=== PATIENT | female | born 1960 | race Caucasian/White ===

== ENCOUNTER 2016-11-25 16:53 | Observation (INO) ==
--- NOTE | 2016-11-25 16:57 | Emergency Department Note ---
Disposition Clinical Impression: CVA (cerebral vascular accident), Leukocytosis Disposition: Admitted As Inpatient Condition: Good General Adult HPI - General Stated complaint: stroke symptoms Time Seen by Provider: 11/25/16 16:56 - Related Data Home Medications Medication Instructions Recorded Confirmed Albuterol Neb [AccuNeb] 1.25 mg IH Q8H PRN 11/25/16 11/25/16 Ammonium Lactate [Emily-Hydrolac] 1 appl TP BID 11/25/16 11/25/16 Bupropion HCl [Wellbutrin Xl] 300 mg PO DAILY 11/25/16 11/25/16 Carvedilol [Coreg] 6.25 mg PO BID 11/25/16 11/25/16 Diltiazem CD (24hr) [Cardizem CD] 240 mg PO DAILY 11/25/16 11/25/16 Famotidine [Pepcid] 40 mg PO DAILY 11/25/16 11/25/16 Fluticasone Propionate Nasal 50 mcg NS BID 11/25/16 11/25/16 [Flonase] Furosemide [Lasix] 20 mg PO DAILY 11/25/16 11/25/16 Gabapentin [Neurontin] 900 mg PO TID 11/25/16 11/25/16 Lansoprazole [Prevacid] 30 mg PO DAILY 11/25/16 11/25/16 Levothyroxine [Synthroid] 175 mcg PO QAM 11/25/16 11/25/16 Linaclotide [Linzess] 145 mcg PO DAILY 11/25/16 11/25/16 MetroNIDAZOLE [Metrocream] 1 appl TP BID 11/25/16 11/25/16 Mometasone/Formoterol [Dulera 200 2 puff IH BID 11/25/16 11/25/16 Mcg/5 Mcg Inhaler] Nortriptyline [Pamelor] 10 mg PO HS 11/25/16 11/25/16 Prochlorperazine Maleate 10 mg PO Q8HR 11/25/16 11/25/16 [Compazine] Promethazine Syrup [Phenergan 12.5 mg PO Q6H 11/25/16 11/25/16 Syrup] Tiotropium [Spiriva] 18 mcg IH 0700 11/25/16 11/25/16 Topiramate [Topamax] 25 - 50 mg PO HS 11/25/16 11/25/16 Allergies Allergy/AdvReac Type Severity Reaction Status Date / Time No Known Allergies Allergy Verified 11/25/16 16:55 Past Medical History - Past Medical History Medical history: Reports: arthritis, asthma, cancer, COPD, CVA, GERD, hypertension Surgical history: Reports: breast surgery, cancer surgery, hysterectomy, thyroidectomy Psychiatric history: Reports: no psych history - Social History Smoking Status: Never smoker Alcohol use: Reports: none Drug use: Reports: none Course Vital Signs Temperature 98.0 F 11/25/16 16:56 Pulse Rate 101 11/25/16 16:56 Respiratory Rate 18 11/25/16 16:56 Blood Pressure 125/82 11/25/16 16:56 O2 Sat by Pulse Oximetry 98 11/25/16 16:56 Temperature 97.9 F 11/26/16 07:19 Pulse Rate 97 11/26/16 07:19 Respiratory Rate 16 11/26/16 08:14 Blood Pressure 123/70 11/26/16 07:19 O2 Sat by Pulse Oximetry 94 11/26/16 08:14 Oxygen Delivery Oxygen Delivery Room Air Medical Decision Making - Lab Data Result diagrams: 11/26/16 03:45 11/26/16 03:45 Lab Results 11/25/16 11/25/16 11/25/16 Range/Units 16:59 16:59 16:59 WBC 19.8 H (4.3-11.1) K/mcL RBC 4.50 (3.82-4.97) M/mcL Hgb 13.2 (11.5-15.4) g/dL Hct 39.6 (35.3-44.9) % MCV 88.0 (83.0-100.0) fL MCH 29.3 (28.0-33.3) pg MCHC 33.3 (31.6-35.5) g/dL RDW 12.8 (11.5-14.5) % Plt Count 465 H (140-400) K/mcL MPV 9.5 (9.4-12.4) fL Immature Gran % 0.7 (0-4) % Seg Neutrophils % 80.6 % Lymphocytes % 12.4 % Monocytes % 5.5 % Eosinophils % 0.4 % Basophils % 0.4 % Neutrophils # 16.0 H (1.6-8.9) K/mcL Lymphocytes # 2.5 (0.6-4.6) K/mcL Monocytes # 1.1 (0.0-1.3) K/mcL Eosinophils # 0.1 (0.0-0.6) K/mcL Basophils # 0.1 (0.0-0.2) K/mcL PT 12.0 (9.4-12.1) Seconds INR 1.1 APTT 30.4 (26.0-36.0) Seconds Sodium 138 (136-145) mEq/L Potassium 4.3 (3.5-4.5) mEq/L Chloride 103 (98-109) mEq/L Carbon Dioxide 21 (19-29) mEq/L BUN 22 H (7-20) mg/dL Creatinine 1.11 (0.57-1.11) mg/dL Est GFR ( Amer) > 60 (> 60) Est GFR (Non-Af Amer) 50 L (> 60) BUN/Creatinine Ratio 20 (6-26) Glucose 105 H (70-99) mg/dL Calculated Osmolality 290 (280-300) Calcium 9.7 (8.6-10.8) mg/dL Troponin I (0-0.03) ng/mL Urine Color (Yellow) Urine Clarity (Clear) Urine pH (5.0-8.0) pH Units Ur Specific [place] (1.010-1.025) Urine Protein (Neg-Trace) mg/dL Urine Glucose (UA) (Normal) mg/dL Urine Ketones (Negative) mg/dL Urine Blood (Negative) Urine Nitrite (Negative) Urine Bilirubin (Negative) Urine Urobilinogen (Normal) mg/dL Ur Leukocyte Esterase (Negative) Urine Microscopic RBC (0-3) per hpf Urine Microscopic WBC (0-3) per hpf Ur Squamous Epith Cells (None-Few) per lpf Urine Bacteria (None-Few) per hpf Hyaline Casts (None-Few) per lpf Ur Culture Indicated? (NO) 11/25/16 11/25/16 Range/Units 16:59 18:02 WBC (4.3-11.1) K/mcL RBC (3.82-4.97) M/mcL Hgb (11.5-15.4) g/dL Hct (35.3-44.9) % MCV (83.0-100.0) fL MCH (28.0-33.3) pg MCHC (31.6-35.5) g/dL RDW (11.5-14.5) % Plt Count (140-400) K/mcL MPV (9.4-12.4) fL Immature Gran % (0-4) % Seg Neutrophils % % Lymphocytes % % Monocytes % % Eosinophils % % Basophils % % Neutrophils # (1.6-8.9) K/mcL Lymphocytes # (0.6-4.6) K/mcL Monocytes # (0.0-1.3) K/mcL Eosinophils # (0.0-0.6) K/mcL Basophils # (0.0-0.2) K/mcL PT (9.4-12.1) Seconds INR APTT (26.0-36.0) Seconds Sodium (136-145) mEq/L Potassium (3.5-4.5) mEq/L Chloride (98-109) mEq/L Carbon Dioxide (19-29) mEq/L BUN (7-20) mg/dL Creatinine (0.57-1.11) mg/dL Est GFR ( Amer) (> 60) Est GFR (Non-Af Amer) (> 60) BUN/Creatinine Ratio (6-26) Glucose (70-99) mg/dL Calculated Osmolality (280-300) Calcium (8.6-10.8) mg/dL Troponin I 0.00 (0-0.03) ng/mL Urine Color Dark Yellow (Yellow) Urine Clarity Cloudy A (Clear) Urine pH 6.0 (5.0-8.0) pH Units Ur Specific [place] 1.019 (1.010-1.025) Urine Protein Negative (Neg-Trace) mg/dL Urine Glucose (UA) Normal (Normal) mg/dL Urine Ketones Negative (Negative) mg/dL Urine Blood Negative (Negative) Urine Nitrite Negative (Negative) Urine Bilirubin Small H (Negative) Urine Urobilinogen Normal (Normal) mg/dL Ur Leukocyte Esterase Moderate H (Negative) Urine Microscopic RBC 0-3 (0-3) per hpf Urine Microscopic WBC 15-30 H (0-3) per hpf Ur Squamous Epith Cells Many H (None-Few) per lpf Urine Bacteria None Seen (None-Few) per hpf Hyaline Casts None Seen (None-Few) per lpf Ur Culture Indicated? YES A (NO) Attestation Statement - Attestation Attestation: I examined this patient and my medical decision-making was reviewed with the Resident Physician. I agree with the documented findings, disposition and treatment plan as described except to the extent set forth below. [id number] time provided Symptoms started 5 hours and 45 minutes prior to arrival. She states she developed intermittent dysarthria. Symptoms mostly resolved except for left lower extremity weakness and a shuffling gait. Stroke alert activated shortly after patient's arrival to the treatment area 17:57: Telemedicine stroke neurologist contacted. Case discussed by the resident physician. Patient not a TPA candidate. Her NIH is 0. She will be admitted for medical management
--- NOTE | 2016-11-25 16:59 | Emergency Department Note ---
Disposition Clinical Impression: CVA (cerebral vascular accident) Qualifiers: CVA mechanism: unspecified Qualified Code(s): I63.9 - Cerebral infarction, unspecified Leukocytosis Qualifiers: Leukocytosis type: unspecified Qualified Code(s): D72.829 - Elevated white blood cell count, unspecified Disposition: Admitted As Inpatient Condition: Good Referrals: NONE,PCP [Non-Partnered Physician] - Neuro HPI - General Chief Complaint: ED Neuro Symptoms/Deficit Stated Complaint: stroke symptoms Time Seen by Provider: 11/25/16 16:56 Source: patient Mode of arrival: private vehicle Limitations: no limitations Nursing Notes Reviewed: Yes Vital Signs Reviewed: Yes - History of Present Illness HPI Narrative: 50-year-old female history of TIA, aneurysm followed by neurology, hypertension who presents to the ER with a chief complaint of slurred speech and left lower [place] weakness. Patient reports around 11 AM this morning she started "talking out of her head" as well as slurring her words. She states she has also felt weak in her left lower extremity. She states that she has an aneurysm that she follows with neurology for. She reports her prior TIAs symptoms with syncope. At the time of arrival here the slurred speech had resolved. She still feels subjective weakness in her left lower extremity. No other complaints. Onset of Symptoms Date: 11/25/16 Onset of Symptoms Time: 11:00 Symptom Onset Unknown: No Timing confirmed by: family member Location: speech, left leg History of same: No Severity: moderate Quality: weakness Symptoms Improving: Yes Improves with: time Worsens with: none Context: sudden onset On Anticoagulants: No Associated symptoms: Reports: confusion. Denies: chest pain, headaches, nausea/ vomiting Treatments Prior to Arrival: none - Related Data Allergies/Adverse Reactions: Allergies Allergy/AdvReac Type Severity Reaction Status Date / Time No Known Allergies Allergy Verified 11/25/16 16:55 All systems ED: reviewed and negative except as stated. Cardiovascular: Denies: chest pain Respiratory: Denies: dyspnea Gastrointestinal: Denies: abdominal pain, nausea, vomiting Neurological: Reports: weakness. Denies: headache, numbness, paresthesias Past Medical History - Past Medical History Attestation: Yes The following information was validated with the patient. Source: patient Medical history: Reports: arthritis, asthma, cancer, COPD, CVA, GERD, hypertension Surgical history: Reports: breast surgery, cancer surgery, hysterectomy, thyroidectomy Psychiatric history: Reports: no psych history - Social History Smoking Status: Never smoker Alcohol use: Reports: none Drug use: Reports: none Physical Exam - General Limitations: no limitations General appearance: alert, in no apparent distress - Head Head exam: atraumatic, normocephalic, normal inspection - Eye Eye exam: Present: normal appearance, EOMI - ENT ENT exam: normal exam - Neck Neck exam: Present: normal inspection, full ROM - Chest Chest inspection: Present: normal inspection, symmetric chest wall rise - Respiratory Respiratory exam: Present: normal lung sounds bilaterally - Cardiovascular Cardiovascular exam: Present: regular rate, normal rhythm, normal heart sounds - Abdominal Exam Abdominal exam: Present: soft, Non-Tender. Absent: tenderness - Extremities Exam Extremities exam: Present: normal inspection, full ROM - Expanded Upper Extremity Exam Shoulder exam: Present: normal inspection, full ROM Arm exam: Present: normal inspection, full ROM Elbow exam: Present: normal inspection, full ROM Forearm/Wrist exam: Present: normal inspection, full ROM Hand exam: Present: normal inspection, full ROM - Expanded Lower Extremity Exam Hip/Pelvis exam: Present: normal inspection, full ROM Upper leg exam: Present: normal inspection, full ROM Knee exam: Present: normal inspection, full ROM Lower leg exam: Present: normal inspection, full ROM Ankle exam: Present: normal inspection, full ROM Foot/toe exam: Present: normal inspection, full ROM Neurovascular/Tendon exam: Absent: motor deficit, sensory deficit - Neurological Exam Neurological exam: Present: alert, oriented X3, CN II-XII intact. Absent: motor sensory deficit - Expanded Neurological Exam Patient oriented to: Present: person, place, time Speech: Present: fluid speech Cranial nerves: EOM function (II, III, IV, ): Normal, facial sensation (V): Normal, spinal accessory function (XI): Normal, tongue deviation (XII): Normal Cerebellar function: finger to nose: Normal Motor strength - LUE: 5/5 Motor strength - RUE: 5/5 Motor strength - LLE: 5/5 Motor strength - RLE: 5/5 Sensory exam upper extremity: light touch: Normal Sensory exam lower extremity: light touch: Normal Coma Scale Eye Opening: Spontaneous Coma Scale Motor Response: Obeys Commands Coma Scale Verbal Response: Oriented Coma Scale Total: 15 - Psychiatric Psychiatric exam: Present: normal affect, normal mood - Skin Skin exam: Present: warm, dry, intact, normal color Course Course Narrative: Patient seen and examined the time of arrival. Stroke alert was called 5 hours and 45 minutes after her symptom onset. We will obtain a CT scan of the head as well as basic labs. We will also be in consultation with [facility] for further evaluation. - Reevaluation(s) Reevaluation #1: I discussed results of imaging as well as the stroke neurologist recommendations with the patient and family. They are in agreement with being admitted to the hospital. - Consultations Consultation #1: This case was discussed with the stroke neurologist at [facility]. I discussed the patient's history, exam findings, imaging and lab work to date. They report that the patient is outside the window for TPA or for acute intervention. They do recommend with admitting to the hospital for a neuro workup. Vital Signs Temperature 98.0 F 11/25/16 16:56 Pulse Rate 101 11/25/16 16:56 Respiratory Rate 18 11/25/16 16:56 Blood Pressure 125/82 11/25/16 16:56 O2 Sat by Pulse Oximetry 98 11/25/16 16:56 Temperature 98.0 F 11/25/16 16:56 Pulse Rate 101 11/25/16 17:49 Respiratory Rate 17 11/25/16 17:49 Blood Pressure 129/81 11/25/16 17:49 O2 Sat by Pulse Oximetry 95 11/25/16 17:49 Oxygen Delivery Oxygen Delivery Room Air Neuro Symptoms/Deficit - MDM Narrative Medical decision making narrative: 56-year-old female presents to the ER due to left fluxion many weakness, slurring words and altered mental status. Residual symptoms include left lower [address] is negative. This case was discussed with [facility] stroke neurology who recommended admission for neurologic workup. Patient stable for admission and accepted to the hospitalist service. - Lab Data Lab results reviewed: Yes I reviewed the patient's lab results. Result diagrams: 11/25/16 16:59 11/25/16 16:59 Lab Results 11/25/16 11/25/16 11/25/16 Range/Units 16:59 16:59 16:59 WBC 19.8 H (4.3-11.1) K/mcL RBC 4.50 (3.82-4.97) M/mcL Hgb 13.2 (11.5-15.4) g/dL Hct 39.6 (35.3-44.9) % MCV 88.0 (83.0-100.0) fL MCH 29.3 (28.0-33.3) pg MCHC 33.3 (31.6-35.5) g/dL RDW 12.8 (11.5-14.5) % Plt Count 465 H (140-400) K/mcL MPV 9.5 (9.4-12.4) fL Immature Gran % 0.7 (0-4) % Seg Neutrophils % 80.6 % Lymphocytes % 12.4 % Monocytes % 5.5 % Eosinophils % 0.4 % Basophils % 0.4 % Neutrophils # 16.0 H (1.6-8.9) K/mcL Lymphocytes # 2.5 (0.6-4.6) K/mcL Monocytes # 1.1 (0.0-1.3) K/mcL Eosinophils # 0.1 (0.0-0.6) K/mcL Basophils # 0.1 (0.0-0.2) K/mcL PT 12.0 (9.4-12.1) Seconds INR 1.1 APTT 30.4 (26.0-36.0) Seconds Sodium 138 (136-145) mEq/L Potassium 4.3 (3.5-4.5) mEq/L Chloride 103 (98-109) mEq/L Carbon Dioxide 21 (19-29) mEq/L BUN 22 H (7-20) mg/dL Creatinine 1.11 (0.57-1.11) mg/dL Est GFR ( Amer) > 60 (> 60) Est GFR (Non-Af Amer) 50 L (> 60) BUN/Creatinine Ratio 20 (6-26) Glucose 105 H (70-99) mg/dL Calculated Osmolality 290 (280-300) Calcium 9.7 (8.6-10.8) mg/dL Troponin I (0-0.03) ng/mL 11/25/16 Range/Units 16:59 WBC (4.3-11.1) K/mcL RBC (3.82-4.97) M/mcL Hgb (11.5-15.4) g/dL Hct (35.3-44.9) % MCV (83.0-100.0) fL MCH (28.0-33.3) pg MCHC (31.6-35.5) g/dL RDW (11.5-14.5) % Plt Count (140-400) K/mcL MPV (9.4-12.4) fL Immature Gran % (0-4) % Seg Neutrophils % % Lymphocytes % % Monocytes % % Eosinophils % % Basophils % % Neutrophils # (1.6-8.9) K/mcL Lymphocytes # (0.6-4.6) K/mcL Monocytes # (0.0-1.3) K/mcL Eosinophils # (0.0-0.6) K/mcL Basophils # (0.0-0.2) K/mcL PT (9.4-12.1) Seconds INR APTT (26.0-36.0) Seconds Sodium (136-145) mEq/L Potassium (3.5-4.5) mEq/L Chloride (98-109) mEq/L Carbon Dioxide (19-29) mEq/L BUN (7-20) mg/dL Creatinine (0.57-1.11) mg/dL Est GFR ( Amer) (> 60) Est GFR (Non-Af Amer) (> 60) BUN/Creatinine Ratio (6-26) Glucose (70-99) mg/dL Calculated Osmolality (280-300) Calcium (8.6-10.8) mg/dL Troponin I 0.00 (0-0.03) ng/mL - Radiology Data Radiology results reviewed: Yes I reviewed the patient's radiology results. Head CT 11/25/16 00:00 IMPRESSION: Mild small vessel ischemic changes bilaterally Otherwise, no acute abnormality. D/ / Bogdan Altamirano / Bogdan Altamirano Interpreting Provider: Bogdan Altamirano - EKG Data EKG attestation: Yes I reviewed and interpreted this EKG. EKG results narrative: EKG demonstrates sinus tachycardia with rate of 103. Normal axis. Normal intervals. T-wave flattening in the lateral leads. No ST elevations or depressions. No acute ischemic findings. Changes from previous EKG on 08/27/[address]-T wave changes in lateral leads. NIH Stroke Scale - Level of Consciousness LOC: Alert - LOC Questions LOC Questions: Answers both correctly - LOC Commands LOC Commands: Performs both correctly - Best Gaze Best Gaze: Normal - Visual Visual: No visual loss - Facial Palsy Facial Palsy: Normal - Motor Arms Motor Arm-Left: No drift for 10 seconds Motor Arm-Right: No drift for 10 seconds - Motor Legs Motor Leg-Left: No drift for 5 seconds Motor Leg-Right: No drift for 5 seconds - Limb Ataxia Limb Ataxia: Absent of affected limb too weak to perform exam - Sensory Sensory: Normal - Best Language Best Language: No aphasia - Dysarthria Dysarthria: Normal - Extinction and Inattention Extinction and Inattention: Normal - NIHSS Total Score NIHSS Total Score: 0 TPA Checklist - LKW: 3-4.5 hrs Add. Warnings/Precautions Patient/family understanding: The patient/family members have been counseled and understood the risk, benefit , and alternatives of treatment. S.B.A.R. - [email or web address] Situation: Demographics, MOA Background: Presenting Complaint, Relevant PMH, Meds, & Allergies Assessment: Vital Signs, Course and respsone to treatment, Exam Concerns, Patient/Family Expectation, Pertinant Lab Results, Outstanding Labs Recommendation: Barrier(s) to disposition, Recommendation based on pending studies, treatments, or consults S.B.A.REl Report Given to: Danielle ChurchillADeclan Repor Time: 18:13 (Requests blood cultures and lactate)
[2016-11-25 17:36] LABS: Basophils # 0.1 K/mcL (0.0-0.2); Basophils % 0.4 %; Eosinophils # 0.1 K/mcL (0.0-0.6); Eosinophils % 0.4 %; Hematocrit 39.6 % (35.3-44.9); Hemoglobin 13.2 g/dL (11.5-15.4); Immature Granulocytes % 0.7 % (0-4); Lymphocytes # 2.5 K/mcL (0.6-4.6); Lymphocytes % 12.4 %; Mean Corpuscular HGB Conc 33.3 g/dL (31.6-35.5); Mean Corpuscular Hemoglobin 29.3 pg (28.0-33.3); Mean Platelet Volume 9.5 fL (9.4-12.4); Monocytes # 1.1 K/mcL (0.0-1.3); Monocytes % 5.5 %; Platelet Count 465 K/mcL (140-400); Red Cell Distribution Width 12.8 % (11.5-14.5); Segmented Neutrophils % 80.6 %
[2016-11-25 17:45] LABS: INR 1.1
[2016-11-25 17:47] LABS: Activated Partial Thrombo Time 30.4 Seconds (26.0-36.0)
[2016-11-25 17:48] LABS: BUN/Creatinine Ratio 20 (6-26); Blood Urea Nitrogen 22 mg/dL (7-20); Calcium 9.7 mg/dL (8.6-10.8); Carbon Dioxide 21 mEq/L (19-29); Chloride 103 mEq/L (98-109); Glucose 105 mg/dL (70-99); Osmolality,Calculated 290 (280-300); Potassium 4.3 mEq/L (3.5-4.5); Sodium 138 mEq/L (136-145); eGFR For African Americans > 60 (> 60); eGFR For Non-African Americans 50 (> 60)
[2016-11-25] MEDS ORDERED: Aspirin 81 MG TAB.CHEW PO ONE (17:58)
[2016-11-25 18:18] LABS: Bilirubin,Urine Small (Negative); Blood,Urine Negative (Negative); Clarity,Urine Cloudy (Clear); Color,Urine Dark Yellow (Yellow); Glucose,Urine (UA) Normal (Normal); Ketones,Urine Negative (Negative); Leukocyte Esterase,Urine Moderate (Negative); Nitrite,Urine Negative (Negative); Protein,Urine Negative (Neg-Trace); Specific Gravity,Urine 1.019 (1.010-1.025); Urobilinogen,Urine Normal (Normal)
[2016-11-25 18:19] LABS: Bacteria,Urine None Seen per hpf (None-Few); Hyaline Casts,Urine None Seen per lpf (None-Few); RBC,Urine 0-3 per hpf (0-3); Squamous Epithelial Cell,Urine Many per lpf (None-Few); WBC,Urine 15-30 per hpf (0-3)
[2016-11-25] MEDS ORDERED: Naloxone 0.4 MG/ML INJ IVP PRN (19:46)
[2016-11-25] MEDS ORDERED: Albuterol 2.5 MG/3 ML NEBULIZER IH PRN (19:49)
--- NOTE | 2016-11-25 19:51 | Internal Med History&Physical ---
Date of Encounter: 11/25/16 Time of Encounter: 19:51 Assessment and Plan (1) Acute encephalopathy Current visit: Yes Status: Suspected Patient with prior TIA in 2010 presented with signs and symptoms of confusion, slurred speech, focal weakness, concerning for a stroke vs ?seizure episode with a prolonged post-ictal Non contrast CT Head -ve for bleed in the ER upon presentation NIHSS on admission performed by the ED physician was Last known baseline was on 11/24 prior to 5pm, was not a tPA candidate due to she being outside the window Pt started on a modified stroke protocol since she is outside the initial 24 hour window will check MRI brain/MRA head and neck w/o contrast for stroke and also evaluate the intracranial vessels respectively Check 2D Echo with saline to assess for PFO( unsure about investigation done at [place] in 2010) Neurocheck q4hr ASA 81mg and Lipitor 80mg qday, Neurology consult no need for permissive hypertension since she is post 24 hours will consider PT/OT Eval based on neuro deficits Admit to for further evaluation (2) Leukocytosis Current visit: Yes Status: Acute stress related vs post seizure, we will monitor Qualifiers: Leukocytosis type: unspecified Qualified Code(s): D72.829 - Elevated white blood cell count, unspecified (3) HTN (hypertension) Current visit: Yes Status: Chronic will continue home medications Qualifiers: Hypertension type: essential hypertension Qualified Code(s): I10 - Essential (primary) hypertension (4) Hypothyroidism Current visit: Yes Status: Chronic will continue home synthroid Qualifiers: Hypothyroidism type: acquired Qualified Code(s): E03.9 - Hypothyroidism, unspecified (5) Depression Current visit: Yes Status: Chronic will continue home medications Qualifiers: Depression Type: major depressive disorder Major depression recurrence: recurrent Active/Remission status: in partial remission Qualified Code(s): F33.41 - Major depressive disorder, recurrent, in partial remission (6) COPD (chronic obstructive pulmonary disease) Current visit: Yes Status: Chronic albuterol nebs PRN Qualifiers: COPD type: chronic bronchitis Chronic bronchitis type: simple Qualified Code(s): J41.0 - Simple chronic bronchitis Internal Medicine - H&P: HPI Chief complaint: confusion Admitted From: Emergency Dept Plans for Post Hospital Care: Home History of present illness: Ms. Fyr is a 56 year old female with a hx of HTN and prior TIA who was brought to the ER of [place] for confusion. She reports that last evening at round 5pm she started having slurred speech associated with confusion, she went to the bathroom and felt that the place was alien. She could not tell what the toilet bowl was and pooped on the floor, after she had fallen there. She also vomited. She reportedly lay there the whole night because she could not get up from the floor. She denies any preceding headache, lightheadedness, or seizure episode. She did not notice any tongue biting, tingling or numbness. She awoke this morning and was shuffling her feet and felt that her left leg was weak because she could not lift it off the floor when she walked. She was also leaning towards the right when she walked. She reports that later whilst she was having a conversation with her sister she was loosing her thought mid sentence and was also having word finding difficulty with a sense of "hazy or cloudy feeling". Her sister got her to come to the ER for further evaluation. In the ER her symptoms had resolved with the exception of word finding difficulty and cloudy sensorium. A non contrast head CT was unremarkable for a bleed or new finding, and the [facility] neurologist did not feel pt was a tPA candidate. 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 PAST SURGICAL HISTORY: Hysterectomy in 1977, Thyroid cancer removal in 1986, Back surgery, Mass on kidneys removed in 1999, Repeat thyroid tumor removed in November 2010 Tonsillectomy. SOCIAL HISTORY: She is disabled, former smoker of half a pack of cigarettes, quit in 2012. Admits to occasional alcohol use. Denies any drug use. FAMILY HISTORY: Mother , she had metastatic lung cancer. Father is also , he had cancer, type unknown he also had HTN. She has a family history of lung cancer, hypertension, heart disease and diabetes. Past Med Surg Social Fam HX - Past Medical History Medical history: arthritis, asthma, cancer, COPD, CVA, GERD, hypertension Psychiatric history: no psych history - Past Surgical History Surgical History: breast surgery, cancer surgery, hysterectomy, thyroidectomy - Social History Smoking Status: Never smoker Smokeless Tobacco Status: No Alcohol use: none Drug use: none - Family History Mother Living Status: Cause of : Cancer Father Living Status: Cause of : Cancer Hx Family Cancer: Yes Internal Medicine - H&P: Meds Albuterol Neb [AccuNeb] 1.25 mg IH Q8H PRN 11/25/16 [History] Ammonium Lactate [Emily-Hydrolac] 1 appl TP BID 11/25/16 [History] Bupropion HCl [Wellbutrin Xl] 300 mg PO DAILY 11/25/16 [History] Carvedilol [Coreg] 6.25 mg PO BID 11/25/16 [History] Diltiazem CD (24hr) [Cardizem CD] 240 mg PO DAILY 11/25/16 [History] Famotidine [Pepcid] 40 mg PO DAILY 11/25/16 [History] Fluticasone Propionate Nasal [Flonase] 50 mcg NS BID 11/25/16 [History] Furosemide [Lasix] 20 mg PO DAILY 11/25/16 [History] Gabapentin [Neurontin] 900 mg PO TID 11/25/16 [History] Lansoprazole [Prevacid] 30 mg PO DAILY 11/25/16 [History] Levothyroxine [Synthroid] 175 mcg PO QAM 11/25/16 [History] Linaclotide [Linzess] 145 mcg PO DAILY 11/25/16 [History] MetroNIDAZOLE [Metrocream] 1 appl TP BID 11/25/16 [History] Mometasone/Formoterol [Dulera 200 Mcg/5 Mcg Inhaler] 2 puff IH BID 11/25/16 [ History] Nortriptyline [Pamelor] 10 mg PO HS 11/25/16 [History] Prochlorperazine Maleate [Compazine] 10 mg PO Q8HR 11/25/16 [History] Promethazine Syrup [Phenergan Syrup] 12.5 mg PO Q6H 11/25/16 [History] Tiotropium [Spiriva] 18 mcg IH 0700 11/25/16 [History] Topiramate [Topamax] 25 - 50 mg PO HS 11/25/16 [History] No Known Allergies Allergy (Verified 11/25/16 16:55) All Systems PM: A 10-system review of systems was performed and is negative for pertinent findings except as documented above in the HPI. - Constitutional Vitals: Temp Pulse Resp BP Pulse Ox 98.1 F 102 16 100/65 95 11/25/16 19:40 11/25/16 19:40 11/25/16 19:40 11/25/16 19:40 11/25/16 19:40 GENERAL: Adult female, lying in bed, Alert, not in acute distress, HEENT: NC/AT, EOMI, PERRLA, anicteric sclera, normal conjunctiva, supple, clear nares, moist mucous membranes, RESP: Lungs are clear to auscultation bilaterally, good AE bilaterally, No crackles or wheeze CARDIO: Normal hearts sounds; S1 and 2, RRR with no murmurs, no JVD, no ankle edema GI: Soft, full, no tenderness, no organomegaly felt, normal bowel sounds heard MUSCULOSKELETAL: grossly normal movements bilaterally, no deformities noted, no calf tenderness NEUROLOGIC: CN 2-12 intact grossly. Motor is 4+/5 on the left lower extremity, 5 /5 in all other extremities/no sensory deficit appreciated, normal muscle tone PSYCHIATRY: AAO x 3. Mood is fair, SKIN: no skin rash or ulcers noted Internal Med - H&P Results - Labs CBC & Chem 7: 11/26/16 03:45 11/26/16 03:45 - EKG Data -: EKG Interpreted by Myself - Diagnostic Studies CT scan - head Status: image reviewed by me
[2016-11-25] MEDS: Gabapentin 300 MG CAPSULE PO SCH (22:26)
[2016-11-25] MEDS: Fluticasone Propionate Nasal 50 MCG/SPRAY BOTTLE NS SCH (22:36)
[2016-11-26 05:28] LABS: Basophils # 0.1 K/mcL (0.0-0.2); Basophils % 0.5 %; Eosinophils # 0.2 K/mcL (0.0-0.6); Eosinophils % 1.8 %; Hematocrit 35.8 % (35.3-44.9); Hemoglobin 11.9 g/dL (11.5-15.4); Immature Platelets 3.1 % (1.1-6.1); Lymphocytes # 3.4 K/mcL (0.6-4.6); Lymphocytes % 26.3 %; Mean Corpuscular HGB Conc 33.2 g/dL (31.6-35.5); Mean Corpuscular Hemoglobin 29.7 pg (28.0-33.3); Mean Corpuscular Volume 89.3 fL (83.0-100.0); Mean Platelet Volume 9.5 fL (9.4-12.4); Monocytes # 0.9 K/mcL (0.0-1.3); Monocytes % 6.8 %; Neutrophils # 8.3 K/mcL (1.6-8.9); Platelet Count 366 K/mcL (140-400); Red Blood Count 4.01 M/mcL (3.82-4.97); Red Cell Distribution Width 12.9 % (11.5-14.5); Segmented Neutrophils % 63.6 %
[2016-11-26 05:41] LABS: BUN/Creatinine Ratio 19 (6-26); Blood Urea Nitrogen 20 mg/dL (7-20); Calcium 9.1 mg/dL (8.6-10.8); Carbon Dioxide 24 mEq/L (19-29); Chloride 103 mEq/L (98-109); Chol/HDL Ratio 4.5 (0-4.9); Cholesterol 223 mg/dL (< 200); Glucose 123 mg/dL (70-99); HDL Cholesterol 50 mg/dL (40-59); LDL Cholesterol,Calculated 121 mg/dL (0-99); Magnesium 2.6 mg/dL (1.6-2.6); Osmolality,Calculated 288 (280-300); Phosphorous 3.9 mg/dL (2.3-4.7); Potassium 3.6 mEq/L (3.5-4.5); Sodium 137 mEq/L (136-145); Triglycerides 259 mg/dL (< 150); eGFR For African Americans > 60 (> 60); eGFR For Non-African Americans 54 (> 60)
[2016-11-26 05:48] LABS: Hemoglobin A1C 5.6 %
[2016-11-26] MEDS: Tiotropium 18 MCG inhalation IH SCH (08:11)
[2016-11-26] MEDS: BuPROPion XL (24 HR) 150 MG TABLET PO SCH (09:52)
[2016-11-26] MEDS: Gabapentin 300 MG CAPSULE PO SCH ×3 (09:52→21:46)
[2016-11-26] MEDS: Famotidine 20 MG TABLET PO SCH (09:52)
[2016-11-26] MEDS: Aspirin 81 MG TAB.CHEW PO SCH (09:52)
[2016-11-26] MEDS: Fluticasone Propionate Nasal 50 MCG/SPRAY BOTTLE NS SCH ×2 (09:53→21:47)
--- NOTE | 2016-11-26 15:24 | Electrocardiograph Report ---
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
--- NOTE | 2016-11-26 15:45 | Internal Med Progress Note ---
Date of Encounter: 11/26/16 Time of Encounter: 12:35 - Assessment and plan (1) Acute encephalopathy Current Visit: Yes Status: Suspected Assessment and plan: Patient reports one-week history of shuffling gait, weakness, slurred speech, at times inappropriate speech and conversation. Two nights ago she was up all night with nausea, vomiting and diarrhea, then the next day she slept most of the day. Patient reports that she still feels foggy, although she is improved. Head CT in the ER was negative for acute intracranial abnormality, there are mild small vessel ischemic changes bilaterally. Brain MRI negative for acute infarct. There are chronic ischemic changes present. Patient had MRA of the neck and head that showed no reliable evidence of acute intracranial arterial vascular abnormality, no evidence of acute infarct. Echocardiogram showed LVEF of 60-65% with normal systolic function, mild LVEDD, no significant valvular dysfunction, no evidence of intracardiac shunting. Patient does have leukocytosis that is improving since admission. Chest x-ray was negative, urine culture was just isolated. At this time acute encephalopathy is of unknown etiology. Most of her home medications have been held, we will continue to monitor. Neurology has been consulted, they have not seen patient today. We will continue to monitor patient condition, labs, and vital signs. (2) Leukocytosis Current Visit: Yes Status: Acute Assessment and plan: Improving. 13.0 today. Pt has no fever or tachycardia. Continue to monitor labs and vitals. Qualifiers: Leukocytosis type: unspecified Qualified Code(s): D72.829 - Elevated white blood cell count, unspecified (3) HTN (hypertension) Current Visit: Yes Status: Chronic Assessment and plan: Chronic. Continue home medications. Qualifiers: Hypertension type: essential hypertension Qualified Code(s): I10 - Essential (primary) hypertension (4) COPD (chronic obstructive pulmonary disease) Current Visit: Yes Status: Chronic Assessment and plan: No acute exacerbation. Continue home medications. Qualifiers: COPD type: chronic bronchitis Chronic bronchitis type: simple Qualified Code(s): J41.0 - Simple chronic bronchitis (5) DVT prophylaxis Current Visit: Yes Status: Acute Assessment and plan: Up ad milagros. SHANIQUA milton. - Time Spent With Patient less than 15 minutes - Subjective Interval history: Pt was seen and assessed at 1235 today. was at bs. Pt was alert, oriented x 3, speech clear, coherent. Pt reports 1 week history of shuffling gait, confusion and at times, slurred and inappropriate speech. Pt states that she would have to stop and think about why she was even talking. reports that 2 nights ago that she was up all night with n/v/d and that she slept most of the next day. Pt states that she is a pt of Dr. Payne and has been seen for multiple small aneurysms in her brain. She states that she still feels foggy, but improved. AT this time, neurology consult is still pending. - Constitutional Vitals: Temp Pulse Resp BP Pulse Ox 97.9 F 108 16 129/80 94 11/26/16 15:03 11/26/16 15:03 11/26/16 15:03 11/26/16 15:03 11/26/16 15:03 General appearance: Present: cooperative, A&O X 3, pleasant, no acute distress, answers questions appropriately - Head Head exam: Present: normal inspection - Eye Eye exam: Present: normal appearance, conjuntiva pink - ENT ENT exam: Present: mucous membranes moist, normal exam, normal external ear exam - Neck Neck exam general surgery: Present: normal inspection. Absent: lymphadenopathy , tenderness - Respiratory Respiratory exam: Present: decreased breath sounds, CTAB. Absent: rales, respiratory distress, rhonchi, stridor, wheezes - Cardiovascular Cardiovascular exam: Present: RRR, +S1, +S2. Absent: clicks, diastolic murmur, gallop, systolic murmur - GI/Abdominal GI/Abdominal exam: Present: normal bowel sounds, soft. Absent: hernia, hepatomegaly, tenderness - Extremities Exam Extremities exam: Present: full ROM, warm, radial pulses palpable and symmetrical. Absent: pedal edema, tenderness - Neurological Exam Neurological exam: Present: alert, oriented X3, no focal deficits, strengths equal and symetr throughout, speech deficit. Absent: pronater drift, facial droop - Skin Skin exam: Present: dry, intact, normal color, warm. Absent: rash, urticaria Internal Medicine: Result - Labs CBC & Chem 7: 11/26/16 03:45 11/26/16 03:45 Labs: Short CBC 11/26/16 Range/Units 03:45 WBC 13.0 H (4.3-11.1) K/mcL Hgb 11.9 (11.5-15.4) g/dL Hct 35.8 (35.3-44.9) % Plt Count 366 (140-400) K/mcL Neutrophils # 8.3 (1.6-8.9) K/mcL BMP 11/26/16 03:45 Sodium 137 Potassium 3.6 Chloride 103 Carbon Dioxide 24 BUN 20 Creatinine 1.04 Glucose 123 H Calcium 9.1 - ABG Interpretation ABG results: PT/INR, D-dimer PT 12.0 Seconds (9.4-12.1) 11/25/16 16:59 - Impressions Impressions Brain MRI 11/25/16 19:47 IMPRESSION: MRA brain sensitivity diminished by artifact obscuring portions of the intracranial internal carotid arteries and posterior cerebral arteries near the skullbase. No reliable evidence of acute intracranial arterial vascular abnormality. No evidence of acute infarct. Mild to moderate chronic microvascular ischemic changes of cerebral white matter. MRA neck without evidence of acute vascular abnormality. D/ / Daniel Conner / Daniel Conner Interpreting Provider: Daniel Conner Head MRA 11/25/16 19:47 IMPRESSION: MRA brain sensitivity diminished by artifact obscuring portions of the intracranial internal carotid arteries and posterior cerebral arteries near the skullbase. No reliable evidence of acute intracranial arterial vascular abnormality. No evidence of acute infarct. Mild to moderate chronic microvascular ischemic changes of cerebral white matter. MRA neck without evidence of acute vascular abnormality. D/ / Daniel Conner / Daniel Conner Interpreting Provider: Daniel Conner Neck MRA 11/25/16 19:47 IMPRESSION: MRA brain sensitivity diminished by artifact obscuring portions of the intracranial internal carotid arteries and posterior cerebral arteries near the skullbase. No reliable evidence of acute intracranial arterial vascular abnormality. No evidence of acute infarct. Mild to moderate chronic microvascular ischemic changes of cerebral white matter. MRA neck without evidence of acute vascular abnormality. D/ / Daniel Conner / Daniel Conner Interpreting Provider: Daniel Conner Consult Discharge Plan - Plan Referrals: Julio Hernandez MD [Primary Care Provider] - 12/03/16 1:15 pm
--- NOTE | 2016-11-26 17:10 | Neurology - Consult Note ---
Date of Encounter: 11/26/16 Time of Encounter: 17:05 Assessment and Plan (1) Acute encephalopathy Current Visit: Yes Status: Suspected I see no evidence in the existing workup, or neurologic examination to suspect a primary neurologic process here. My suspicion is that perhaps she might have been dehydrated secondary to an acute process perhaps UTI, or gastroenteritis. Her headaches have not really been intense enough to suspect an aneurysmal leak. The MRI scan of her brain recently completed was negative, however the MRA scan of the head and neck were inconclusive due to artifactual content. Echocardiogram was negative. No focal or lateralized findings are present on her neurologic exam. My plan is to obtain an EEG, will order a CTA of the head and neck to try to better delineate the status of the right upper ophthalmic artery aneurysm. History of Present Illness HPI: Ms. Fry is a 56 year old female who was seen for neurologic evaluation secondary to confusion feeling lightheaded. Apparently over the last week or so states that while at home her blood pressure has been somewhat labile. She normally runs in the 140s over 80s. However lately she has been around 110/70 and today apparently was 100/65. They state that she has not started on any new medications or stopped any. Apparently 2 nights ago she was up all night with symptoms of nausea vomiting and diarrhea. Later that day she began slurring her words and "shuffling her feet". She awakens Wednesday which was yesterday and was no better. She was also somewhat confused. They also give other vague symptoms for instance she has been dropping things. She does have a known history of cerebral aneurysm however been experiencing mild headaches but not very intense headaches. She was actually supposed to be seen by Dr. Campos in the office today but came to the hospital instead. She denies any visual changes. She admits that she has been somewhat stressed about her relationship with her daughter but does not feel that this is an explanation for troponins. Overall today she feels somewhat improved. Urinalysis does have some suggestion of a UTI. WBC count upon admission was elevated at 19.8. Just recently she has had an MRI scan of the brain was negative. However the MRA was inconclusive due to artifactual content. Echocardiogram was completed and is negative. She has not had an EEG. Past Med Surg Social Fam HX - Past Medical History Medical history: arthritis, asthma, cancer, COPD, CVA, GERD, hypertension Psychiatric history: no psych history - Past Surgical History Surgical History: breast surgery, cancer surgery, hysterectomy, thyroidectomy - Social History Smoking Status: Never smoker Smokeless Tobacco Status: No Alcohol use: none Drug use: none - Family History Mother Living Status: Cause of : Cancer Father Living Status: Cause of : Cancer Hx Family Cancer: Yes Medications and Allergies Albuterol Neb [AccuNeb] 1.25 mg IH Q8H PRN 11/25/16 [History] Ammonium Lactate [Emily-Hydrolac] 1 appl TP BID 11/25/16 [History] Bupropion HCl [Wellbutrin Xl] 300 mg PO DAILY 11/25/16 [History] Carvedilol [Coreg] 6.25 mg PO BID 11/25/16 [History] Diltiazem CD (24hr) [Cardizem CD] 240 mg PO DAILY 11/25/16 [History] Famotidine [Pepcid] 40 mg PO DAILY 11/25/16 [History] Fluticasone Propionate Nasal [Flonase] 50 mcg NS BID 11/25/16 [History] Furosemide [Lasix] 20 mg PO DAILY 11/25/16 [History] Gabapentin [Neurontin] 900 mg PO TID 11/25/16 [History] Lansoprazole [Prevacid] 30 mg PO DAILY 11/25/16 [History] Levothyroxine [Synthroid] 175 mcg PO QAM 11/25/16 [History] Linaclotide [Linzess] 145 mcg PO DAILY 11/25/16 [History] MetroNIDAZOLE [Metrocream] 1 appl TP BID 11/25/16 [History] Mometasone/Formoterol [Dulera 200 Mcg/5 Mcg Inhaler] 2 puff IH BID 11/25/16 [ History] Nortriptyline [Pamelor] 10 mg PO HS 11/25/16 [History] Prochlorperazine Maleate [Compazine] 10 mg PO Q8HR 11/25/16 [History] Promethazine Syrup [Phenergan Syrup] 12.5 mg PO Q6H 11/25/16 [History] Tiotropium [Spiriva] 18 mcg IH 0700 11/25/16 [History] Topiramate [Topamax] 25 - 50 mg PO HS 11/25/16 [History] 3 Allergy/AdvReac Type Severity Reaction Status Date / Time No Known Allergies Allergy Verified 11/25/16 16:55 All Systems: A 10-system review of systems was performed and is negative for pertinent findings except as documented above in the HPI. Review of Systems: 10 point review of systems is consistent with a history of present illness and otherwise negative. Physical Examination - Vital Signs Vital Signs: Initial Vital Signs Temp Pulse Resp BP Pulse Ox 98.0 F 101 18 125/82 98 11/25/16 16:56 11/25/16 16:56 11/25/16 16:56 11/25/16 16:56 11/25/16 16:56 - Neurologic Detailed motor examination: full strength in all major muscle groups Motor examination - right side: 5/5: deltoids, biceps, triceps, wrist flexion, wrist extension, drill operator pneumatic, hip flexors, tibialis Anterior, quadriceps, toe extension (EHL), plantarflexion Motor examination - left side: 5/5: deltoids, biceps, triceps, wrist flexion, wrist extension, hip flexors, drill operator pneumatic, quadriceps, tibialis Anterior, toe extension (EHL), plantarflexion Reflexes: Biceps: 1+ (Symmetrically), Triceps: 1+ ("), Brachioradialis: 1+ ("), Patella: 1+ ("), Achilles: 1+ (") Mental Status Examination: awake, alert, oriented to person, oriented to place, oriented to time, follows commands appropriately, answers questions appropriately, no agnosia, no aphasia, no aproxia Cranial nerve examination: PERRL, EOMI, visual beltran intact, corneal reflexes brisk symmetrically, sensory to face intact, mastication intact, no facial asymmetry is present, no dysarthria, hearing is intact symmetrically, soft palate elevates bilaterally upon phonation, gag reflex intact, flexes SCM and trapezius muscles symmetrically with full power, tongue protrudes midline, no atrophy or facial fasiculations present Cerebellar examination: no dysmetria, performs finger to nose and heel to cordova symmetrically without ataxia, no gait ataxia, no truncal ataxia, no difficulty with rapid alternating movements Results - Laboratory Findings CBC and BMP: 11/26/16 03:45 11/26/16 03:45 Abnormal lab findings: Abnormal lab results WBC 13.0 K/mcL (4.3-11.1) H 11/26/16 03:45 Est GFR (Non-Af Amer) 54 (> 60) L 11/26/16 03:45 Glucose 123 mg/dL (70-99) H 11/26/16 03:45 Triglycerides 259 mg/dL (< 150) H 11/26/16 03:45 Cholesterol 223 mg/dL (< 200) H 11/26/16 03:45 LDL Cholesterol, Calc 121 mg/dL (0-99) H 11/26/16 03:45 VLDL Cholesterol, Calc 52 mg/dL (< 31) H 11/26/16 03:45 Urine Clarity Cloudy (Clear) A 11/25/16 18:02 Urine Bilirubin Small (Negative) H 11/25/16 18:02 Ur Leukocyte Esterase Moderate (Negative) H 11/25/16 18:02 Urine Microscopic WBC 15-30 per hpf (0-3) H 11/25/16 18:02 Ur Squamous Epith Cells Many per lpf (None-Few) H 11/25/16 18:02 Ur Culture Indicated? YES (NO) A 11/25/16 18:02 Consult Discharge Plan - Plan Referrals: Julio Hernandez MD [Primary Care Provider] - 12/03/16 1:15 pm
[2016-11-26] MEDS: *HR* Heparin 5,000 UNIT/ML VIAL SQ SCH (21:47)
[2016-11-27 04:28] LABS: Basophils # 0.1 K/mcL (0.0-0.2); Basophils % 0.6 %; Eosinophils # 0.2 K/mcL (0.0-0.6); Eosinophils % 2.2 %; Hematocrit 34.6 % (35.3-44.9); Hemoglobin 11.3 g/dL (11.5-15.4); Immature Granulocytes % 1.1 % (0-4); Lymphocytes # 2.9 K/mcL (0.6-4.6); Lymphocytes % 35.1 %; Mean Corpuscular HGB Conc 32.7 g/dL (31.6-35.5); Mean Corpuscular Hemoglobin 29.4 pg (28.0-33.3); Mean Corpuscular Volume 90.1 fL (83.0-100.0); Mean Platelet Volume 9.4 fL (9.4-12.4); Monocytes # 0.8 K/mcL (0.0-1.3); Monocytes % 10.4 %; Neutrophils # 4.1 K/mcL (1.6-8.9); Platelet Count 316 K/mcL (140-400); Red Blood Count 3.84 M/mcL (3.82-4.97); Red Cell Distribution Width 12.8 % (11.5-14.5); Segmented Neutrophils % 50.6 %
[2016-11-27 04:38] LABS: BUN/Creatinine Ratio 19 (6-26); Blood Urea Nitrogen 15 mg/dL (7-20); Calcium 9.2 mg/dL (8.6-10.8); Carbon Dioxide 26 mEq/L (19-29); Chloride 106 mEq/L (98-109); Glucose 107 mg/dL (70-99); Osmolality,Calculated 295 (280-300); Potassium 3.7 mEq/L (3.5-4.5); Sodium 142 mEq/L (136-145); eGFR For African Americans > 60 (> 60); eGFR For Non-African Americans > 60 (> 60)
[2016-11-27] MEDS: *HR* Heparin 5,000 UNIT/ML VIAL SQ SCH ×2 (06:07→14:44)
[2016-11-27] MEDS: Famotidine 20 MG TABLET PO SCH (08:16)
[2016-11-27] MEDS: BuPROPion XL (24 HR) 150 MG TABLET PO SCH (08:16)
[2016-11-27] MEDS: Gabapentin 300 MG CAPSULE PO SCH ×2 (08:16→14:43)
[2016-11-27] MEDS: Fluticasone Propionate Nasal 50 MCG/SPRAY BOTTLE NS SCH (08:16)
[2016-11-27] MEDS: Aspirin 81 MG TAB.CHEW PO SCH (08:16)
[2016-11-27] MEDS: Tiotropium 18 MCG inhalation IH SCH (11:05)
[2016-11-27 15:35] VITALS: BP 161/91
--- NOTE | 2016-11-27 16:08 | EEG/EMG/Oth Biometrics Report ---
EEG Procedure Report Date of procedure: 11/27/16 EEG Procedure: Routine EEG Procedure Note: This is a report of a 21 channel bipolar and referential montage EEG. The posterior dominant rhythm of 8 Hz moderate to low voltage alpha frequencies identified symmetrically the posterior head regions. This rhythm attenuates symmetrically with eye opening. Hyperventilation is not performed during recording. Periods of drowsiness and stage II sleep were identified as reference by dropout of the posterior dominant rhythm, and emergence of vertex activity, K complexes, and sleep spindles. Photic stimulation is performed and produces a symmetric driving response. EKG lead demonstrated reveals sinus tachycardia at 108 beats per minute. Impressions: This EEG EEG recording is within normal limits. There is no evidence of epileptiform activity identified during the recording. Comment: A normal EEG does not preclude the diagnosis of seizure or epilepsy. If the clinical suspicion for seizure activity is high, serial EEGs or perhaps a prolonged recording may increase the yield. Sinus tachycardia at 108 beats per minute is also identified during the recording. Please correlate clinically.
--- NOTE | 2016-11-27 17:15 | Neurology Progress Note ---
Date of Encounter: 11/27/16 Time of Encounter: 17:13 Assessment and Plan (1) Acute encephalopathy Current Visit: Yes Status: Suspected At this juncture on him unable to identify specific cause for Norma's transient confusion. However she has resumed her normal baseline. Neurologic workup was completely negative. I am doubtful of seizure at this time. Also doubtful of a cerebral ischemic event. The aneurysm is not playing a role in this at all. You may discharge her at your discretion, I will follow up with her at your request. Subjective Principal diagnosis: Spell of Altered Consciousness Interval history: Norma Fry was seen for neurologic follow-up regarding spell of altered consciousness. Since admission she has been fairly stable. Her neurologic examination is normal. I did review her EEG which was normal, MRI scan of the brain is normal and she is also had normal MRA neck. 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 Echocardiogram was also normal. Objective - Constitutional Vitals: Temp Pulse Resp BP Pulse Ox 98.3 F 107 16 161/91 95 11/27/16 15:34 11/27/16 15:34 11/27/16 15:34 11/27/16 15:34 11/27/16 15:34 - Neurological Exam Motor Examination: Present: full strength in all major muscle groups Motor examination - right side: 5/5: deltoids, biceps, triceps, wrist flexion, wrist extension, canine service instructor trainer, hip flexors, tibialis Anterior, quadriceps, toe extension (EHL), plantarflexion Motor examination - left side: 5/5: deltoids, biceps, triceps, wrist flexion, wrist extension, hip flexors, canine service instructor trainer, quadriceps, tibialis Anterior, toe extension (EHL), plantarflexion Sensation intact: Present: intact Mental Status Examination: Present: awake, alert, oriented to person, oriented to place, oriented to time, follows commands appropriately, answers questions appropriately, no agnosia, no aphasia, no aproxia Cranial nerve examination: Present: PERRL, EOMI, visual beltran intact, corneal reflexes brisk symmetrically, sensory to face intact, mastication intact, no facial asymmetry is present, no dysarthria, hearing is intact symmetrically, soft palate elevates bilaterally upon phonation, gag reflex intact, flexes SCM and trapezius muscles symmetrically with full power, tongue protrudes midline, no atrophy or facial fasiculations present Cerebellar examination: Present: no dysmetria, performs finger to nose and heel to cordova symmetrically without ataxia, no gait ataxia, no truncal ataxia, no difficulty with rapid alternating movements Results - Laboratory Findings CBC and BMP: 11/27/16 03:20 11/27/16 03:20 Abnormal lab findings: Abnormal lab results Hgb 11.3 g/dL (11.5-15.4) L 11/27/16 03:20 Hct 34.6 % (35.3-44.9) L 11/27/16 03:20 Glucose 107 mg/dL (70-99) H 11/27/16 03:20 Triglycerides 259 mg/dL (< 150) H 11/26/16 03:45 Cholesterol 223 mg/dL (< 200) H 11/26/16 03:45 LDL Cholesterol, Calc 121 mg/dL (0-99) H 11/26/16 03:45 VLDL Cholesterol, Calc 52 mg/dL (< 31) H 11/26/16 03:45 Urine Clarity Cloudy (Clear) A 11/25/16 18:02 Urine Bilirubin Small (Negative) H 11/25/16 18:02 Ur Leukocyte Esterase Moderate (Negative) H 11/25/16 18:02 Urine Microscopic WBC 15-30 per hpf (0-3) H 11/25/16 18:02 Ur Squamous Epith Cells Many per lpf (None-Few) H 11/25/16 18:02 Ur Culture Indicated? YES (NO) A 11/25/16 18:02 Consult Discharge Plan - Plan Referrals: Julio Hernandez MD [Primary Care Provider] - 12/03/16 1:15 pm
--- NOTE | 2016-11-27 18:18 | Discharge Summary ---
Date of Encounter: 11/27/16 Time of Encounter: 08:35 - Discharge Diagnosis (1) Acute encephalopathy Priority: Primary Status: Resolved Comments: Pt has returned to baseline. She denies problems with speech, vision, memory, or weakness. Pt is back to baseline. Neurology has seen pt and signed off and do not believe this is a neurological issue. Cardiac nature has been ruled out, as well since pt denies chest pain, echo was normal, troponin was negative, and EKG showed Sinus tach with a rate of 103, UT interval 155, QRS 110, and QTc 404. Pt has not reported chest pain and has no cardiac history. (2) Leukocytosis Priority: Secondary Status: Resolved Comments: Resolved. WBC 8.1 today. Qualifiers: Leukocytosis type: unspecified Qualified Code(s): D72.829 - Elevated white blood cell count, unspecified (3) HTN (hypertension) Priority: Secondary Status: Chronic Comments: Well controlled in inpatient setting. Continue home medications. Qualifiers: Hypertension type: essential hypertension Qualified Code(s): I10 - Essential (primary) hypertension (4) COPD (chronic obstructive pulmonary disease) Priority: Secondary Status: Chronic Qualifiers: COPD type: chronic bronchitis Chronic bronchitis type: simple Qualified Code(s): J41.0 - Simple chronic bronchitis (5) DVT prophylaxis Priority: Secondary Status: Acute Comments: Heparin SQ daily. Pt is ambulatory. - Discharge Medications Home Medications: Albuterol Neb [AccuNeb] 1.25 mg IH Q8H PRN 11/25/16 [History] Ammonium Lactate [Emily-Hydrolac] 1 appl TP BID 11/25/16 [History] Bupropion HCl [Wellbutrin Xl] 300 mg PO DAILY 11/25/16 [History] Carvedilol [Coreg] 6.25 mg PO BID 11/25/16 [History] Diltiazem CD (24hr) [Cardizem CD] 240 mg PO DAILY 11/25/16 [History] Famotidine [Pepcid] 40 mg PO DAILY 11/25/16 [History] Fluticasone Propionate Nasal [Flonase] 50 mcg NS BID 11/25/16 [History] Furosemide [Lasix] 20 mg PO DAILY 11/25/16 [History] Gabapentin [Neurontin] 900 mg PO TID 11/25/16 [History] Lansoprazole [Prevacid] 30 mg PO DAILY 11/25/16 [History] Levothyroxine [Synthroid] 175 mcg PO QAM 11/25/16 [History] Linaclotide [Linzess] 145 mcg PO DAILY 11/25/16 [History] MetroNIDAZOLE [Metrocream] 1 appl TP BID 11/25/16 [History] Mometasone/Formoterol [Dulera 200 Mcg/5 Mcg Inhaler] 2 puff IH BID 11/25/16 [ History] Nortriptyline [Pamelor] 10 mg PO HS 11/25/16 [History] Prochlorperazine Maleate [Compazine] 10 mg PO Q8HR 11/25/16 [History] Promethazine Syrup [Phenergan Syrup] 12.5 mg PO Q6H 11/25/16 [History] Tiotropium [Spiriva] 18 mcg IH 0700 11/25/16 [History] Topiramate [Topamax] 25 - 50 mg PO HS 11/25/16 [History] Allergies/Adverse Reactions: 3 Allergy/AdvReac Type Severity Reaction Status Date / Time No Known Allergies Allergy Verified 11/25/16 16:55 Procedures/tests Complete & Pending: Procedures Performed prior 72 hours Category Date Time Status CT angio head wo/w con [CT] Stat Cat Scan 11/26/16 17:[address] angio neck [CT] Stat Cat Scan 11/26/16 17:15 Completed MR angio head wo con [MR] Routine MRI 11/25/16 19:47 Completed MR angio neck wo con [MR] Routine MRI 11/25/16 19:47 Completed MR head/brain wo con [MR] Routine MRI 11/25/16 19:47 Completed ECG 12 lead ECG [ECG] Routine Y 11/25/16 16:49 Completed EV echocardiogram Routine Y 11/26/16 02:55 Completed Date of admission: 11/25/16 18:22 Primary care physician: Julio Hernandez MD Consults: 11/26/16 02:56 Consult to Neurology [CONS] Routine Consulting Provider: [facility] Reason for Consult: pls assist in managing the above pt with stroke like symptoms, thanks Call Completed: No 11/27/16 11:46 Consult to [employer] Aide [CONS] Routine Reason for SW Consult: financial concerns with insurance 11/27/16 13:30 Consult to Interpret Exam [CONS] Routine Consulting Provider: Miquel Riggins Consult to Interpret Exam: Interpret EEG Discharging clinician: Lorna Serrano Anticipated date of discharge: 11/27/16 - Patient Status Disposition: Home, Self-Care Functional capacity at discharge: independent ambulation Overall status at discharge: patient is back to baseline - Discharge Instructions Follow Up With: Julio Hernandez MD [Primary Care Provider] - 12/03/16 1:15 pm Forms: ED Satisfaction Letter Additional Instructions: Follow up with your PCP in the next week to 10 days for a follow up visit. Returm to the ER as needed for any other problems or concerns or if your symptoms return or worsen. Resume your normal home medications. Return to your normal activities as tolerated. - Diet and Activity Activity: increase activity as tolerated Diet: advance to your usual diet Hospital course: Ms. Fry is a 56 year old female with past medical history of TIA, hypertension, hypothyroidism, depression, COPD. Was brought to the emergency department for confusion. Patient states that the night before admission she started having slurred speech, confusion, disorientation, feeling like she had to really concentrate about why she was speaking. She said she went to the bathroom and felt that the place was unfamiliar and she cannot tell what the toilet was not had a bowel movement on the floor after she fell. Her reports that she was up 2 nights prior to admission all night long with nausea, vomiting, and diarrhea. She slept the entire next day. She denies headache, lightheadedness, or seizure. Patient states on the morning of admission she was shuffling her feet and her left leg was weak and she could not lift it off the floor when she walked. She also reports that she felt like she was leaning to the right when she walked she reports feeling hazy or cloudy. By the time she reached the emergency department her symptoms have resolved with the exception of difficulty finding words and feeling cloudy. The day after admission she still felt cloudy. Noncontrast head CT was unremarkable the [facility] neurologist by telemedicine did not feel patient was a TPA candidate. She was worked up after admission the brain MRI and head and neck MRAs. MR brain did have some artifact there is no reliable evidence of acute intracranial arterial vascular abnormality. There is no evidence of acute infarct, there was mild to moderate chronic microvascular ischemic changes of cerebral white matter. MRA neck was without evidence of acute vascular abnormality. Patient had an echocardiogram with normal systolic function, LVEF of 60-65% with mild LV DD. There is no significant valvular dysfunction and no pulmonary hypertension. There is no evidence of intracardiac shunting with agitated saline contrast. 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 Patient had an EMG today. EEG was within normal limits, there is no evidence of epileptiform activity. Patient was seen by neurology, they have signed off as they feel there is no neurologic basis for her symptoms. Most likely patient felt fatigued from a viral infection, nausea vomiting and diarrhea caused her to become dehydrated and confused, and when she was admitted to the hospital and given IV fluids and stabilized, she returned to her baseline. She had a mildly elevated white count on arrival, he has returned to baseline. Liver other labs have remained within normal limits. She is aware of her abnormal lipid panel and states that Dr. Elías Ocampo does not want her to have a statin due to her liver problems. Patient states that she feels much better. She is ready to go home. Her vital signs have remained stable and within normal limits. Patient is stable and ready for discharge home. - Time Spent with Patient Total time spent providing and/or coordinating discharge services: Less than 30 minutes - Constitutional Vitals: Temp Pulse Resp BP Pulse Ox 98.3 F 107 16 161/91 95 11/27/16 15:34 11/27/16 15:34 11/27/16 15:34 11/27/16 15:34 11/27/16 15:34 General appearance: Present: cooperative, A&O X 3, pleasant, no acute distress, answers questions appropriately - Head Head exam: Present: normal inspection - Eye Eye exam: Present: normal appearance, conjuntiva pink - ENT ENT exam: Present: mucous membranes moist, normal exam - Neck Neck exam general surgery: Present: normal inspection. Absent: lymphadenopathy , tenderness - Respiratory Respiratory exam: Present: chest wall tenderness, CTAB. Absent: rales, respiratory distress, rhonchi, stridor, wheezes - Cardiovascular Cardiovascular exam: Present: RRR, +S1, +S2. Absent: clicks, diastolic murmur, gallop, systolic murmur - GI/Abdominal GI/Abdominal exam: Present: normal bowel sounds, soft. Absent: distended, hepatomegaly, tenderness - Extremities Exam Extremities exam: Present: normal inspection, warm, radial pulses palpable and symmetrical. Absent: pedal edema, tenderness - Neurological Exam Neurological exam: Present: alert, oriented X3, no focal deficits, strengths equal and symetr throughout. Absent: altered, motor sensory deficit, facial droop, speech deficit - Skin Skin exam: Present: dry, intact, normal color. Absent: rash, urticaria
== END 2016-11-27 19:06 | disposition home or self-care (01) ==
LOC: EMEROO 16:53 → 3BNU 16:53
PROVIDERS: ADMIT Registered Nurse; ATTEND Registered Nurse

== ENCOUNTER 2017-01-08 16:11 | Observation (INO) ==
--- NOTE | 2017-01-08 16:25 | Emergency Department Note ---
Disposition Clinical Impression: Tachycardia Chest pain Qualifiers: Chest pain type: unspecified Qualified Code(s): R07.9 - Chest pain, unspecified Disposition: Admitted As Inpatient Condition: Good Time of Disposition: 19:19 Arrhythmia/Palpitations HPI - General Chief Complaint: ED Arrhythmia/Palpitations Stated Complaint: High HR Time Seen by Provider: 01/08/17 16:18 Source: patient Mode of arrival: wheelchair Limitations: no limitations Nursing Notes Reviewed: Yes Vital Signs Reviewed: Yes - History of Present Illness HPI Narrative: 56-year-old who has a history of recently developing seizures over the last 8 weeks. The patient does have a history of aneurysms and was transferred to [facility] for evaluation. Neurosurgical evaluation without intervention. She was started on Keppra to get the seizures under control. She was noted to have low blood pressure related to the Keppra so all of her medications including beta blockers and calcium channel chely were stopped. Over the last several days she's been having heaviness in her chest and tachycardia. Pt Subjective Complaint: rapid heart beat Onset (ago): day(s) Duration: constant Severity: moderate Context: occurred during rest Associated symptoms: Reports: chest pain Treatments prior to arrival: other (None) - Related Data Home Medications Medication Instructions Recorded Confirmed Albuterol Neb [AccuNeb] 1.25 mg IH Q8H PRN 11/25/16 01/08/17 Bupropion HCl [Wellbutrin Xl] 300 mg PO DAILY 11/25/16 01/08/17 Carvedilol [Coreg] 6.25 mg PO BID 11/25/16 01/08/17 Diltiazem CD (24hr) [Cardizem CD] 240 mg PO DAILY 11/25/16 01/08/17 Famotidine [Pepcid] 40 mg PO DAILY 11/25/16 01/08/17 Fluticasone Propionate Nasal 50 mcg NS BID 11/25/16 01/08/17 [Flonase] Furosemide [Lasix] 20 mg PO DAILY 11/25/16 01/08/17 Lansoprazole [Prevacid] 30 mg PO DAILY 11/25/16 01/08/17 Levothyroxine [Synthroid] 175 mcg PO QAM 11/25/16 01/08/17 Linaclotide [Linzess] 145 mcg PO DAILY 11/25/16 01/08/17 Mometasone/Formoterol [Dulera 200 2 puff IH BID 11/25/16 01/08/17 Mcg/5 Mcg Inhaler] Nortriptyline [Pamelor] 10 mg PO HS 11/25/16 01/08/17 Prochlorperazine Maleate 10 mg PO Q8HR 11/25/16 01/08/17 [Compazine] Promethazine Syrup [Phenergan 12.5 mg PO Q6H PRN 11/25/16 01/08/17 Syrup] Tiotropium [Spiriva] 18 mcg IH 0700 11/25/16 01/08/17 Topiramate [Topamax] 25 - 50 mg PO HS 11/25/16 01/08/17 Gabapentin [Neurontin] 300 mg PO BID 01/08/17 01/08/17 LevETIRAcetam [Keppra] 750 mg PO BID 01/08/17 01/08/17 Potassium Chloride [K-Tab ER] 20 meq PO DAILY 01/08/17 01/08/17 Promethazine [Phenergan] 25 mg PO Q8H PRN 01/08/17 01/08/17 clonazePAM [Klonopin] 0.5 mg PO BID PRN 01/08/17 01/08/17 Allergies Allergy/AdvReac Type Severity Reaction Status Date / Time celecoxib [From Celebrex] Allergy Itching Verified 01/08/17 19:40 ondansetron AdvReac Headache Verified 01/08/17 19:40 [From Zofran (as hydrochloride)] Constitutional: Denies: fever, chills, weakness, weight change Eyes: Denies: eye pain, eye discharge, vision change ENT ED: Denies: ear pain, throat pain, dental pain, hearing loss, epistaxis, congestion, dysphagia Cardiovascular: Reports: chest pain, palpitations. Denies: dyspnea on exertion , edema, syncope Respiratory: Denies: cough, dyspnea, wheezes, hemoptysis, stridor Gastrointestinal: Denies: abdominal pain, nausea, vomiting, diarrhea, constipation, hematemesis, melena, hematochezia Genitourinary: Denies: dysuria, frequency, hematuria, discharge Musculoskeletal: Denies: back pain, neck pain, arthralgia, myalgia Integumentary: Denies: rash, abrasion, lesions Neurological: Denies: headache, weakness, numbness, paresthesias, confusion, abnormal gait, vertigo Psychiatric: Denies: anxiety, depression, suicidal thoughts, homicidal thoughts , auditory hallucinations, visual hallucinations Endocrine: Denies: fatigue Hematological/Lymphatic: Denies: easy bleeding, easy bruising Allergic/Immunologic: Denies: facial swelling, urticaria Past Medical History - Past Medical History Medical history: Reports: arthritis, asthma, cancer, COPD, GERD, hypertension, thyroid disease, syncope, TIA, other Surgical history: Reports: breast surgery, cancer surgery, hysterectomy, thyroidectomy Psychiatric history: Reports: no psych history WASTE REMOVALIST history: Reports: no WASTE REMOVALIST history - Social History Smoking Status: Former smoker Smokeless Tobacco Status: No Alcohol use: Reports: none Drug use: Reports: none Physical Exam - General Limitations: no limitations General appearance: alert, in no apparent distress - Head Head exam: atraumatic, normocephalic, normal inspection - Eye Eye exam: Present: normal appearance, PERRL, EOMI - ENT ENT exam: normal exam, normal oropharynx, mucous membranes moist - Neck Neck exam: Present: normal inspection, full ROM, trachea midline - Chest Chest inspection: Present: normal inspection, symmetric chest wall rise - Respiratory Respiratory exam: Present: normal lung sounds bilaterally - Cardiovascular Cardiovascular exam: Present: normal rhythm, tachycardia - Abdominal Exam Abdominal exam: Present: soft, Non-Tender. Absent: tenderness, distention, guarding, rebound, rigidity - Extremities Exam Extremities exam: Present: normal inspection, full ROM. Absent: tenderness, pedal edema - Expanded Lower Extremity Exam Neurovascular/Tendon exam: Absent: motor deficit, sensory deficit, tendon deficit Gait: observed and normal - Back Exam Back exam: Present: normal inspection, full ROM. Absent: tenderness - Neurological Exam Neurological exam: Present: alert, oriented X3 - Psychiatric Psychiatric exam: Present: normal affect, normal mood - Skin Skin exam: Present: warm, dry, intact, normal color Course - Reevaluation(s) Reevaluation #1: The 6-year-old with palpitations and chest heaviness. Initial troponin is negative we'll obtain a CTA of the chest as her d-dimer was elevated at 618 and then she will be admitted for a rule out. Time: 18:07 Reevaluation #2: The patient's creatinine was elevated with a GFR of 40, we will not obtain a CTA we will obtain a VQ scan. Time: 20:17 - Consultations Consultation #1: Discussed with Austen Dewitt, admit. He would like a CTA of the chest. Time: 18:07 Consultation #2: I discussed the case with Dr. Valderrama who is seeing the patient now he will write for heparin as the VQ scan will not be able to be completed until the morning. Time: 20:22 Vital Signs Temperature 98.1 F 01/08/17 16:12 Pulse Rate 117 01/08/17 16:12 Respiratory Rate 18 01/08/17 16:12 Blood Pressure 116/70 01/08/17 16:12 O2 Sat by Pulse Oximetry 96 01/08/17 16:12 Temperature 98.1 F 01/08/17 16:12 Pulse Rate 103 01/08/17 18:58 Respiratory Rate 16 01/08/17 20:03 Blood Pressure 123/75 01/08/17 20:03 O2 Sat by Pulse Oximetry 94 01/08/17 18:58 Oxygen Delivery Oxygen Delivery Room Air Arrhythmia/Palpitations - Lab Data Result diagrams: 01/08/17 16:35 01/08/17 16:35 Lab Results 01/08/17 01/08/17 01/08/17 Range/Units 16:35 16:35 16:35 WBC 9.2 (4.3-11.1) K/mcL RBC 3.93 (3.82-4.97) M/mcL Hgb 11.8 (11.5-15.4) g/dL Hct 34.9 L (35.3-44.9) % MCV 88.8 (83.0-100.0) fL MCH 30.0 (28.0-33.3) pg MCHC 33.8 (31.6-35.5) g/dL RDW 13.0 (11.5-14.5) % Plt Count 377 (140-400) K/mcL MPV 9.1 L (9.4-12.4) fL Immature Gran % 1.2 (0-4) % Seg Neutrophils % 49.1 % Lymphocytes % 39.9 % Monocytes % 7.3 % Eosinophils % 1.9 % Basophils % 0.6 % Neutrophils # 4.5 (1.6-8.9) K/mcL Lymphocytes # 3.7 (0.6-4.6) K/mcL Monocytes # 0.7 (0.0-1.3) K/mcL Eosinophils # 0.2 (0.0-0.6) K/mcL Basophils # 0.1 (0.0-0.2) K/mcL Reactive Lymphocytes Present A (Not Present) Platelet Estimate Normal (Normal) PT 12.4 H (9.4-12.1) Seconds INR 1.1 APTT 33.6 (26.0-36.0) Seconds D-Dimer 618 H (0-500) ng/mLFEU Sodium 143 (136-145) mEq/L Potassium 3.9 (3.5-4.5) mEq/L Chloride 106 (98-109) mEq/L Carbon Dioxide 23 (19-29) mEq/L BUN 14 (7-20) mg/dL Creatinine 1.36 H (0.57-1.11) mg/dL Est GFR ( Amer) 48 L (> 60) Est GFR (Non-Af Amer) 40 L (> 60) BUN/Creatinine Ratio 10 (6-26) Glucose 135 H (70-99) mg/dL Calculated Osmolality 299 (280-300) Calcium 9.9 (8.6-10.8) mg/dL Troponin I (0-0.03) ng/mL TSH 1.205 (0.350-4.840) mcIU/mL Thyroxine (T4) 10.32 (4.87-11.72) mcg/dL 01/08/17 Range/Units 16:35 WBC (4.3-11.1) K/mcL RBC (3.82-4.97) M/mcL Hgb (11.5-15.4) g/dL Hct (35.3-44.9) % MCV (83.0-100.0) fL MCH (28.0-33.3) pg MCHC (31.6-35.5) g/dL RDW (11.5-14.5) % Plt Count (140-400) K/mcL MPV (9.4-12.4) fL Immature Gran % (0-4) % Seg Neutrophils % % Lymphocytes % % Monocytes % % Eosinophils % % Basophils % % Neutrophils # (1.6-8.9) K/mcL Lymphocytes # (0.6-4.6) K/mcL Monocytes # (0.0-1.3) K/mcL Eosinophils # (0.0-0.6) K/mcL Basophils # (0.0-0.2) K/mcL Reactive Lymphocytes (Not Present) Platelet Estimate (Normal) PT (9.4-12.1) Seconds INR APTT (26.0-36.0) Seconds D-Dimer (0-500) ng/mLFEU Sodium (136-145) mEq/L Potassium (3.5-4.5) mEq/L Chloride (98-109) mEq/L Carbon Dioxide (19-29) mEq/L BUN (7-20) mg/dL Creatinine (0.57-1.11) mg/dL Est GFR ( Amer) (> 60) Est GFR (Non-Af Amer) (> 60) BUN/Creatinine Ratio (6-26) Glucose (70-99) mg/dL Calculated Osmolality (280-300) Calcium (8.6-10.8) mg/dL Troponin I 0.00 (0-0.03) ng/mL TSH (0.350-4.840) mcIU/mL Thyroxine (T4) (4.87-11.72) mcg/dL - EKG Data EKG attestation: Yes I reviewed and interpreted this EKG. EKG shows normal: sinus rhythm Rate: tachycardia Rhythm: NSR [place]/QRS: normal Interpretation: nonspecific ST-T wave changes
[2017-01-08 16:47] LABS: Basophils # 0.1 K/mcL (0.0-0.2); Basophils % 0.6 %; Eosinophils # 0.2 K/mcL (0.0-0.6); Eosinophils % 1.9 %; Hematocrit 34.9 % (35.3-44.9); Hemoglobin 11.8 g/dL (11.5-15.4); Immature Granulocytes % 1.2 % (0-4); Lymphocytes # 3.7 K/mcL (0.6-4.6); Lymphocytes % 39.9 %; Mean Corpuscular HGB Conc 33.8 g/dL (31.6-35.5); Mean Corpuscular Volume 88.8 fL (83.0-100.0); Mean Platelet Volume 9.1 fL (9.4-12.4); Monocytes # 0.7 K/mcL (0.0-1.3); Monocytes % 7.3 %; Neutrophils # 4.5 K/mcL (1.6-8.9); Platelet Count 377 K/mcL (140-400); Red Blood Count 3.93 M/mcL (3.82-4.97); Segmented Neutrophils % 49.1 %
[2017-01-08 16:51] LABS: INR 1.1; Prothrombin Time 12.4 Seconds (9.4-12.1)
[2017-01-08 16:54] LABS: Activated Partial Thrombo Time 33.6 Seconds (26.0-36.0)
[2017-01-08 17:23] LABS: Platelet Estimate Normal (Normal); Reactive Lymphocytes Present (Not Present)
[2017-01-08 18:17] LABS: Calcium 9.9 mg/dL (8.6-10.8); Potassium 3.9 mEq/L (3.5-4.5)
[2017-01-08 18:40] LABS: Thyroid Stimulating Hormone 1.205 mcIU/mL (0.350-4.840)
[2017-01-08] MEDS ORDERED: Albuterol Neb 1.25 MG/3 ML VIAL IH PRN (20:54)
[2017-01-08] MEDS ORDERED: *HR* Heparin 5,000 UNIT/ML VIAL IVP PRN ×2 (20:54)
[2017-01-08] MEDS ORDERED: clonazePAM 0.5 MG TABLET PO PRN (20:54)
[2017-01-08] MEDS ORDERED: *HR* Heparin 5,000 UNIT/ML VIAL IVP ONE (20:54)
[2017-01-08] MEDS ORDERED: Heparin 25,000 UNIT/500 ML D5W 25,000 UNIT/500 ML MLS IVC SCH (21:00)
[2017-01-08] MEDS ORDERED: Topiramate 25 MG TABLET PO SCH (21:00)
--- NOTE | 2017-01-08 21:05 | Event Note ---
Date of Encounter: 01/08/17 Time of Encounter: 21:02 Patient seen and examined with emergency medical technician/driver. She presents with palpitations and chest tightness. Patient mentioned that her resting heart rate usually runs around 100 sinus rhythm. She has been taken off Cardizem as well as Coreg a week ago because of hypotension. Heart rate started going up to 110- 120 sinus tachycardia. That is the main reason she came to emergency room after homecare reported that she has been tachycardic the past 3 to 4 days. Sinus tachycardia likely related to withdrawal of great blocking medications. However her baseline heart rate still fast around 100 and this needs to be investigated. D dimer is elevated and so VQ scan will be performed until then she will be on heparin. She takes levothyroxine and TSH is 10 which was not explained this tachycardia. No evidence of bleeding, signs of infection , pain...etc. cardiology consultation. Observation admission. Patient is full code
--- NOTE | 2017-01-08 21:07 | Internal Med History&Physical ---
Date of Encounter: 01/08/17 Time of Encounter: 20:45 Assessment and Plan (1) Tachycardia Current visit: Yes Status: Acute Patient's heart rate has been going up to 110-120 bpm. -Patient states that her heart rate normally is around 100 bpm. -Patient normally takes Cardizem, 240 mg by mouth daily. The medication has been restarted. -No evidence of bleeding, signs of infection, or pain. -Consult cardiology. -V/Q scan will be performed tomorrow morning to rule out the possibility of PE -Sinus tachycardia is possibly related to the withdrawal of her medications. (2) HTN (hypertension) Current visit: No Status: Chronic Patient does have a history of hypertension. -Continue home meds. Qualifiers: Hypertension type: essential hypertension Qualified Code(s): I10 - Essential (primary) hypertension (3) DVT prophylaxis Current visit: No Status: Acute Patient presented to the hospital with an elevated d-dimer. -Patient has been placed on heparin drip. -Rule out pulmonary embolism, perform VQ scan in the morning. (4) Hypothyroidism Current visit: No Status: Chronic Patient has a history of hypothyroidism secondary to surgical removal. -Patient normally takes thyroid replacement. -TSH and free T4 have been ordered. Qualifiers: Hypothyroidism type: acquired Qualified Code(s): E03.9 - Hypothyroidism, unspecified Internal Medicine - H&P: HPI Admitted From: Home History of present illness: Ms. Fry is a 56 year old female with a past medical history of hypertension , tachycardia, depression, and hypothyroidism presents to the emergency department with a complaint of rapid heart rate 80 and palpitations a few days duration. Patient states that her resting heart rate is usually approximately 100 bpm. Patient had been taken off her medications Cardizem and Coreg due to the fact that her blood pressure was running low. Since then, her heart rate has risen to 110-120 bpm. Patient denies having any chest pain associated with her rapid heart rate. She states that this particular complaint has never happened before. Patient has however been in and out of the hospital over the last few months due to the recent onset of seizures. Patient is now medicated for the seizures and has not had one since. Upon admission to the hospital, chest x-ray was performed, revealing no acute process. Patient's d-dimer was elevated at 618. Patient denies any dizziness, nausea, vomiting, fever, chills , chest pain, or shortness of breath. Past Med Surg Social Fam HX - Past Medical History Medical history: arthritis, asthma, cancer, COPD, GERD, hypertension, thyroid disease, syncope, TIA, other Psychiatric history: no psych history - Past Surgical History Surgical History: breast surgery, cancer surgery, hysterectomy, thyroidectomy - Social History Smoking Status: Former smoker Smokeless Tobacco Status: No Alcohol use: none Drug use: none - Family History Mother Living Status: Father Living Status: Hx Family Cancer: Yes Internal Medicine - H&P: Meds Albuterol Neb [AccuNeb] 1.25 mg IH Q8H PRN 11/25/16 [History] Bupropion HCl [Wellbutrin Xl] 300 mg PO DAILY 11/25/16 [History] Carvedilol [Coreg] 6.25 mg PO BID 11/25/16 [History] Diltiazem CD (24hr) [Cardizem CD] 240 mg PO DAILY 11/25/16 [History] Famotidine [Pepcid] 40 mg PO DAILY 11/25/16 [History] Fluticasone Propionate Nasal [Flonase] 50 mcg NS BID 11/25/16 [History] Furosemide [Lasix] 20 mg PO DAILY 11/25/16 [History] Lansoprazole [Prevacid] 30 mg PO DAILY 11/25/16 [History] Levothyroxine [Synthroid] 175 mcg PO QAM 11/25/16 [History] Linaclotide [Linzess] 145 mcg PO DAILY 11/25/16 [History] Mometasone/Formoterol [Dulera 200 Mcg/5 Mcg Inhaler] 2 puff IH BID 11/25/16 [ History] Nortriptyline [Pamelor] 10 mg PO HS 11/25/16 [History] Prochlorperazine Maleate [Compazine] 10 mg PO Q8HR 11/25/16 [History] Promethazine Syrup [Phenergan Syrup] 12.5 mg PO Q6H PRN 11/25/16 [History] Tiotropium [Spiriva] 18 mcg IH 0700 11/25/16 [History] Topiramate [Topamax] 25 - 50 mg PO HS 11/25/16 [History] Gabapentin [Neurontin] 300 mg PO BID 01/08/17 [History] LevETIRAcetam [Keppra] 750 mg PO BID 01/08/17 [History] Potassium Chloride [K-Tab ER] 20 meq PO DAILY 01/08/17 [History] Promethazine [Phenergan] 25 mg PO Q8H PRN 01/08/17 [History] clonazePAM [Klonopin] 0.5 mg PO BID PRN 01/08/17 [History] 3 Allergy/AdvReac Type Severity Reaction Status Date / Time celecoxib [From Celebrex] Allergy Itching Verified 01/08/17 19:40 ondansetron AdvReac Headache Verified 01/08/17 19:40 [From Zofran (as hydrochloride)] All Systems PM: A 10-system review of systems was performed and is negative for pertinent findings except as documented above in the HPI. - Constitutional Constitutional: no chills, no excessive sweating, no fever(s), no weakness - Cardiovascular Cardiovascular ROS IM: palpitations, no chest pain, no diaphoresis, no dyspnea, no irregular heart rhythm, no lightheadedness, no paroxysmal nocturnal dyspnea, no syncope - Respiratory Respiratory: no dyspnea, no hemoptysis - Constitutional Vitals: Temp Pulse Resp BP Pulse Ox 98.1 F 103 16 123/75 94 01/08/17 16:12 01/08/17 18:58 01/08/17 20:03 01/08/17 20:03 01/08/17 18:58 General appearance: Present: A&O X 3, pleasant, no acute distress - Head Head exam: Present: normal inspection - Respiratory Respiratory exam: Present: CTAB. Absent: accessory muscle use, rales, rhonchi, wheezes - Cardiovascular Cardiovascular exam: Present: +S1, +S2, tachycardia. Absent: diastolic murmur, gallop, rubs, systolic murmur - Extremities Exam Extremities exam: Absent: pedal edema - Psychiatric Psychiatric exam: Present: normal mood Internal Med - H&P Results - Labs CBC & Chem 7: 01/08/17 16:35 01/08/17 16:35
[2017-01-08] MEDS: Diltiazem CD (24hr) 240 MG CAPSULE PO SCH (22:42)
[2017-01-08] MEDS: levETIRAcetam 250 MG TABLET PO SCH (22:42)
[2017-01-08] MEDS: Fluticasone Propionate Nasal 50 MCG/SPRAY BOTTLE NS SCH (22:42)
[2017-01-08] MEDS: Gabapentin 300 MG CAPSULE PO SCH (22:43)
[2017-01-09] MEDS: Budesonide/Formoterol 160/4.5 MDI IH SCH ×2 (00:01→11:01)
[2017-01-09 04:26] LABS: Basophils # 0.1 K/mcL (0.0-0.2); Basophils % 0.8 %; Eosinophils # 0.2 K/mcL (0.0-0.6); Eosinophils % 2.3 %; Hematocrit 33.5 % (35.3-44.9); Hemoglobin 11.2 g/dL (11.5-15.4); Immature Granulocytes % 1.2 % (0-4); Lymphocytes # 4.3 K/mcL (0.6-4.6); Mean Corpuscular HGB Conc 33.4 g/dL (31.6-35.5); Mean Corpuscular Hemoglobin 30.4 pg (28.0-33.3); Mean Platelet Volume 9.7 fL (9.4-12.4); Monocytes # 0.6 K/mcL (0.0-1.3); Monocytes % 7.1 %; Neutrophils # 3.1 K/mcL (1.6-8.9); Platelet Count 309 K/mcL (140-400); Red Blood Count 3.68 M/mcL (3.82-4.97); Red Cell Distribution Width 13.2 % (11.5-14.5); Segmented Neutrophils % 37.6 %
[2017-01-09 04:39] LABS: Calcium 9.4 mg/dL (8.6-10.8); Magnesium 2.4 mg/dL (1.6-2.6)
[2017-01-09 04:40] LABS: Potassium 3.9 mEq/L (3.5-4.5)
[2017-01-09] MEDS ORDERED: Famotidine 20 MG TABLET PO SCH (09:00)
[2017-01-09] MEDS ORDERED: (Linaclotide [Linzess] 145 MCG) PO SCH (09:00)
[2017-01-09] MEDS ORDERED: BuPROPion XL (24 HR) 150 MG TABLET PO SCH (09:00)
[2017-01-09] MEDS: Gabapentin 300 MG CAPSULE PO SCH (10:04)
[2017-01-09] MEDS: levETIRAcetam 250 MG TABLET PO SCH (10:05)
[2017-01-09] MEDS: Diltiazem CD (24hr) 240 MG CAPSULE PO SCH (10:05)
[2017-01-09] MEDS: Fluticasone Propionate Nasal 50 MCG/SPRAY BOTTLE NS SCH (10:06)
--- NOTE | 2017-01-09 13:00 | Cardiology Consult Note ---
<Amita Mcgowan - Last Filed: 01/09/17 12:50> Date of Encounter: 01/09/17 Time of Encounter: 12:30 Assessment and Plan (1) Sinus tachycardia Status: Chronic Per cardiology: -Reports known history of sinus tachycardia. -Previous on cardizem and coreg in outpatient setting. Recently stopped due to hypotension with anti-seizure medications. -Reports HR at home 120-130. -ECG with sinus tachycardia, HR 115. -Telemetry reviewed with average HR previous 12 hours noted to be 97, sinus rhythm. -Echo 11/2016 with LVEF 60-65%, mild diastolic dysufnction, no significant valvular dysfunction, all bates with normal motion. -2011 NUclear stress with perfusion images negative for ischemia or infarct. -Admits to palpitations. Denies chest pain. -Troponins negative x2. -Started back on cardizem CD 240mg while inpatient per primary service. -BPs 100-110s systolic. -Anticipate cardiology sign off pending evaluation and assessment by . -Will set cardiology follow up in outpatient setting. Patient wishes to see . Discussion w patient/family: The assessment and plan as outlined above was discussed with the patient and/or family members who expressed understanding and agreement. All questions were answered. Thank you for involving us in the care of your patient. Please call with any questions. Discussed and reviewed with . History of Present Illness Consult date: 01/09/17 Requesting physician: Venu Valderrama Consult reason: sinus tachycardia Chief complaint: High HR History of present illness: Ms. Fry is a 56 year old female with a relevant past medical history of HTN , tachycardia, anxiety, depression, thyroid CA s/p thyroidectomy, CVA, COPD, seizures, and cerebral aneurysm. Patient reports her seizure medications were recently changed and since she had been hypotensive. Patient was taken off her coreg and cardizem due to hypotension. Patient reports history of tachycardia. Patient states while on these medications her HR was typically 90-100s. Patient reports medications were stopped one and a half weeks ago. Patient states her home health nurse noticied her HRs were 120-130s and recommended patient be evaluated in ER. Patient denies dizziness or lightheadedness. Patient admits to feeling palpitations. Patient denies chest pain or shortness of breath. Patient reports fatigue is about baseline. Past Med Surg Social Fam HX - Past Medical History Attestation: Yes The following information was validated with the patient. Source: patient, old records reviewed, obtained from family Medical history: arthritis, asthma, cancer, COPD, GERD, hypertension, thyroid disease, syncope, TIA, other Psychiatric history: no psych history - Past Surgical History Surgical History: breast surgery, cancer surgery, hysterectomy, thyroidectomy - Social History Smoking Status: Former smoker Smokeless Tobacco Status: No Alcohol use: none Drug use: none - Family History Mother Adopted: No Living Status: Hx Family Cancer: Yes Father Adopted: No Living Status: Hx Family Cancer: Yes Hx Family Endocrine Disorder: Yes Medications and Allergies Albuterol Neb [AccuNeb] 1.25 mg IH Q8H PRN 11/25/16 [History] Bupropion HCl [Wellbutrin Xl] 300 mg PO DAILY 11/25/16 [History] Carvedilol [Coreg] 6.25 mg PO BID 11/25/16 [History] Diltiazem CD (24hr) [Cardizem CD] 240 mg PO DAILY 11/25/16 [History] Famotidine [Pepcid] 40 mg PO DAILY 11/25/16 [History] Fluticasone Propionate Nasal [Flonase] 50 mcg NS BID 11/25/16 [History] Furosemide [Lasix] 20 mg PO DAILY 11/25/16 [History] Lansoprazole [Prevacid] 30 mg PO DAILY 11/25/16 [History] Levothyroxine [Synthroid] 175 mcg PO QAM 11/25/16 [History] Linaclotide [Linzess] 145 mcg PO DAILY 11/25/16 [History] Mometasone/Formoterol [Dulera 200 Mcg/5 Mcg Inhaler] 2 puff IH BID 11/25/16 [ History] Nortriptyline [Pamelor] 10 mg PO HS 11/25/16 [History] Prochlorperazine Maleate [Compazine] 10 mg PO Q8HR 11/25/16 [History] Promethazine Syrup [Phenergan Syrup] 12.5 mg PO Q6H PRN 11/25/16 [History] Tiotropium [Spiriva] 18 mcg IH 0700 11/25/16 [History] Topiramate [Topamax] 25 - 50 mg PO HS 11/25/16 [History] Gabapentin [Neurontin] 300 mg PO BID 01/08/17 [History] LevETIRAcetam [Keppra] 750 mg PO BID 01/08/17 [History] Potassium Chloride [K-Tab ER] 20 meq PO DAILY 01/08/17 [History] Promethazine [Phenergan] 25 mg PO Q8H PRN 01/08/17 [History] clonazePAM [Klonopin] 0.5 mg PO BID PRN 01/08/17 [History] 3 Allergy/AdvReac Type Severity Reaction Status Date / Time celecoxib [From Celebrex] Allergy Itching Verified 01/08/17 19:40 ondansetron AdvReac Headache Verified 01/08/17 19:40 [From Zofran (as hydrochloride)] All Systems Review: A 10-system review of systems was performed and is negative for pertinent findings except as documented above in the HPI. - Cardiovascular Cardiovascular: as per HPI, palpitations, rapid heart rate Physical Examination Vital Signs, Last 4 Hours Temp Pulse Resp BP Pulse Ox 01/09/17 11:29 98.2 F 102 16 105/61 95 General: Conversant, No Apparent Distress HEENT: Atraumatic, Normocephaly, Mucus Membranes Moist Neck: No JVD, Normal carotid pulses Cardiac: Reg Rate and Rhythm, Normal S1 and S2, No Murmur Lungs: Normal Breath Sounds, No Wheeze, Rales, Rhonchi Neuro: Alert and responsive, No focal deficits noted Abdomen: Soft, Non-Tender Skin: No rashes noted on visualized skin Musculoskeletal: No Chest Wall Tenderness Extremities: No Clubbing, No Cyanosis, No Edema, Normal Pulses Results 01/09/17 04:04 01/09/17 04:04 Lab Results Impressions Chest X-Ray 01/08/17 16:19 IMPRESSION: No acute process. D/ / Geovanny Rinaldi MD / Geovanny Rinaldi MD Interpreting Provider: Geovanny Rinaldi MD Pulmonary Perfusion Imaging 01/08/17 18:55 IMPRESSION: Low Probability for Pulmonary Embolus. D/ / Saul Moyer MD / Saul Moyer MD Interpreting Provider: Saul Moyer MD Active Medications Albuterol Sulfate (Accuneb) 1.25 mg IH Q8H PRN PRN Reason: Shortness Of Breath Stop: 07/10/17 20:55 Budesonide/Formoterol Fumarate (Symbicort) 2 puff IH BIDR [facility] Stop: 07/10/17 22:01 Last Admin: 01/09/17 11:01 Dose: Not Given Bupropion HCl (Wellbutrin Xl) 300 mg PO DAILY [facility] Stop: 07/11/17 09:01 Last Admin: 01/09/17 10:04 Dose: 300 mg Clonazepam (Klonopin) 0.5 mg PO BID PRN PRN Reason: Anxiety Stop: 07/10/17 20:55 Diltiazem HCl (Cardizem Cd) 240 mg PO DAILY [facility] Stop: 07/10/17 20:46 Last Admin: 01/09/17 10:05 Dose: 240 mg Famotidine (Pepcid) 40 mg PO DAILY [facility] Stop: 07/11/17 09:01 Last Admin: 01/09/17 10:05 Dose: 40 mg Fluticasone Propionate (Flonase) 50 mcg NS BID [facility] PRN Reason: Protocol Stop: 07/10/17 21:01 Last Admin: 01/09/17 10:06 Dose: Not Given Gabapentin (Neurontin) 300 mg PO BID [facility] Stop: 07/10/17 21:01 Last Admin: 01/09/17 10:04 Dose: 300 mg Heparin Sodium (Porcine) (Heparin) 6,000 unit 70 unit/kg (6000 unit) IVP Q6HR PRN PRN Reason: SEE COMMENTS Stop: 07/10/17 20:55 Heparin Sodium (Porcine) (Heparin) 3,000 unit 35 unit/kg (3000 unit) IVP Q6H PRN PRN Reason: SEE COMMENTS Stop: 07/10/17 20:55 Levetiracetam (Keppra) 750 mg PO BID [facility] Stop: 07/10/17 21:01 Last Admin: 01/09/17 10:05 Dose: 750 mg Levothyroxine Sodium (Synthroid) 175 mcg PO QAM@0630 [facility] Stop: 07/11/17 06:31 Last Admin: 01/09/17 05:21 Dose: 175 mcg Nortriptyline HCl (Pamelor) 10 mg PO HS [facility] Stop: 07/10/17 21:01 Last Admin: 01/08/17 22:43 Dose: 10 mg Omeprazole (Prilosec) 20 mg PO DAILY@0730 [facility] PRN Reason: Protocol Stop: 07/11/17 07:31 Last Admin: 01/09/17 10:05 Dose: 20 mg Pharmacy Profile Note (Patient Taking Own Medication) 0 each PO DAILY [facility] Stop: 07/11/17 09:01 Last Admin: 01/09/17 10:06 Dose: Not Given Promethazine HCl (Phenergan) 25 mg PO Q8H PRN PRN Reason: Nausea Stop: 07/10/17 20:55 Topiramate (Topamax) [address] [facility] Stop: 07/10/17 21:01 Last Admin: 01/08/17 22:42 Dose: 50 mg Laboratory Tests 11/27/16 12/01/16 12/16/16 03:20 23:40 17:45 Hgb Potassium Creatinine 0.80 1.27 H 1.17 H Troponin I TSH 01/08/17 01/08/17 01/09/17 16:35 16:35 04:04 Hgb 11.2 L Potassium Creatinine 1.36 H Troponin I 0.00 TSH 1.205 01/09/17 01/09/17 04:04 08:52 Hgb Potassium 3.9 Creatinine 1.23 H Troponin I 0.01 TSH - Imaging and Cardiology Chest Xray: report reviewed Stress Test: report reviewed Echo: report reviewed - EKG Interpretation EKG results cardiology: personally reviewed (EGC with sinus tachycardia, HR 116. ), other (Telemetry reviewed with average HR previous 12 hours noted to be 97, sinus rhythm. Rare PVCs and rare PACs noted.) Consult Discharge Plan - Plan Instructions: Influenza Virus Vaccine (Injection), Chest Pain (DC), Heart Healthy Diet (DC) Referrals: Julio Hernandez MD [Primary Care Provider] - <Artie Hernandez - Last Filed: 01/10/17 09:28> Date of Encounter: 01/09/17 Time of Encounter: 16:05 Assessment and Plan Discussion w patient/family: The assessment and plan as outlined above was discussed with the patient and/or family members who expressed understanding and agreement. All questions were answered. Thank you for involving us in the care of your patient. Please call with any questions. History of Present Illness History of present illness: Ms. Fry is a 56 year old female All Systems Review: A 10-system review of systems was performed and is negative for pertinent findings except as documented above in the HPI. Results 01/09/17 04:04 01/09/17 04:04 Lab Results 01/09/17 01/09/17 08:52 10:54 APTT 64.2 H Troponin I 0.01 - Attending Attestation Pt seen and examined, chart reviewed independently, essentially agree with findings as documented, my evaluation as follows: 1. Sinus tachycardia: has been well managed on beta blockade and diltiazem, both discontinued due to hypotension with the addition of Keppra for seizures, seizures much improved, but developed symptomatic sinus tach, heart rates into the 130s and `140s. She was started back on long acting diltiazem with much better control of palpitations, has been up in room, mild activity without provocation of SVT. Pt is at low risk for hospital discharge, would discharge to home on current does of diltiazem CD 240 mg q d, with close outpatient follow up 2. Seizure disorder - seizures controlled with recent addition of Keppra 3. Essential hypertension controlled on current meds. 4. Hypothyroid, on oral replacement.
[2017-01-09 15:42] VITALS: BP 108/70
--- NOTE | 2017-01-09 18:19 | Discharge Summary ---
Date of Encounter: 01/09/17 Time of Encounter: 18:15 - Discharge Diagnosis (1) Tachycardia Priority: Primary Status: Acute (2) HTN (hypertension) Priority: Secondary Status: Chronic Qualifiers: Hypertension type: essential hypertension Qualified Code(s): I10 - Essential (primary) hypertension - Discharge Medications Home Medications: Albuterol Neb [AccuNeb] 1.25 mg IH Q8H PRN 11/25/16 [History] Bupropion HCl [Wellbutrin Xl] 300 mg PO DAILY 11/25/16 [History] Carvedilol [Coreg] 6.25 mg PO BID 11/25/16 [History] Diltiazem CD (24hr) [Cardizem CD] 240 mg PO DAILY 11/25/16 [History] Famotidine [Pepcid] 40 mg PO DAILY 11/25/16 [History] Fluticasone Propionate Nasal [Flonase] 50 mcg NS BID 11/25/16 [History] Furosemide [Lasix] 20 mg PO DAILY 11/25/16 [History] Lansoprazole [Prevacid] 30 mg PO DAILY 11/25/16 [History] Levothyroxine [Synthroid] 175 mcg PO QAM 11/25/16 [History] Linaclotide [Linzess] 145 mcg PO DAILY 11/25/16 [History] Mometasone/Formoterol [Dulera 200 Mcg/5 Mcg Inhaler] 2 puff IH BID 11/25/16 [ History] Nortriptyline [Pamelor] 10 mg PO HS 11/25/16 [History] Prochlorperazine Maleate [Compazine] 10 mg PO Q8HR 11/25/16 [History] Promethazine Syrup [Phenergan Syrup] 12.5 mg PO Q6H PRN 11/25/16 [History] Tiotropium [Spiriva] 18 mcg IH 0700 11/25/16 [History] Topiramate [Topamax] 25 - 50 mg PO HS 11/25/16 [History] Gabapentin [Neurontin] 300 mg PO BID 01/08/17 [History] LevETIRAcetam [Keppra] 750 mg PO BID 01/08/17 [History] Potassium Chloride [K-Tab ER] 20 meq PO DAILY 01/08/17 [History] Promethazine [Phenergan] 25 mg PO Q8H PRN 01/08/17 [History] clonazePAM [Klonopin] 0.5 mg PO BID PRN 01/08/17 [History] Allergies/Adverse Reactions: 3 Allergy/AdvReac Type Severity Reaction Status Date / Time celecoxib [From Celebrex] Allergy Itching Verified 01/08/17 19:40 ondansetron AdvReac Headache Verified 01/08/17 19:40 [From Zofran (as hydrochloride)] Procedures/tests Complete & Pending: Procedures Performed prior 72 hours Category Date Time Status EV echocardiogram Routine Y 01/09/17 20:42 Completed Date of admission: 01/08/17 19:42 Primary care physician: Julio Hernandez MD Consults: 01/08/17 20:59 Consult to Cardiology [CONS] Routine Comment: Consulting Provider: Cardiology Nicole Reason for Consult: sinus tachycardia. Nno clear cause Call Completed: No Discharging clinician: Kaylan Bess - Patient Status Disposition: Home, Self-Care Condition: Good Functional capacity at discharge: independent ambulation - Discharge Instructions Instructions: Influenza Virus Vaccine (Injection), Chest Pain (DC), Heart Healthy Diet (DC) Follow Up With: Julio Hernandez MD [Primary Care Provider] - - Diet and Activity Activity: resume usual activities as tolerated Diet: regular diet Interval History: Ms. Fry is a 56 year old female with a past medical history of hypertension , tachycardia, depression, and hypothyroidism presents to the emergency department with a complaint of rapid heart rate 80 and palpitations a few days duration. Patient states that her resting heart rate is usually approximately 100 bpm. Patient had been taken off her medications Cardizem and Coreg due to the fact that her blood pressure was running low. Since then, her heart rate has risen to 110-120 bpm. Patient denies having any chest pain associated with her rapid heart rate. She states that this particular complaint has never happened before. Patient has however been in and out of the hospital over the last few months due to the recent onset of seizures. Patient is now medicated for the seizures and has not had one since. Upon admission to the hospital, chest x-ray was performed, revealing no acute process. Patient's d-dimer was elevated at 618. Patient denies any dizziness, nausea, vomiting, fever, chills , chest pain, or shortness of breath. Hospital course: She was she was monitored on telemetry. A VQ scan was done and resulted with low probability of PE. Cardiac enzymes were cycled and were negative. Her Cardizem and Coreg home doses were restarted. She then had normal heart rate and blood pressure. She no longer had symptoms of palpitations. Cardiology came and evaluated patient and said she can be discharged with follow-up in office. She was discharged home to resume Coreg and Cardizem. - Time Spent with Patient Total time spent providing and/or coordinating discharge services: - Constitutional Vitals: Temp Pulse Resp BP Pulse Ox 97.9 F 97 14 108/70 94 01/09/17 15:40 01/09/17 15:40 01/09/17 15:40 01/09/17 15:40 01/09/17 15:40 General appearance: Present: A&O X 3, pleasant, no acute distress Exam: General appearance: Present: A&O X 3, pleasant, no acute distress - Head Head exam: Present: normal inspection - Respiratory Respiratory exam: Present: CTAB. Absent: accessory muscle use, rales, rhonchi, wheezes - Cardiovascular Cardiovascular exam: Present: +S1, +S2, tachycardia. Absent: diastolic murmur, gallop, rubs, systolic murmur - Extremities Exam Extremities exam: Absent: pedal edema - Psychiatric Psychiatric exam: Present: normal mood
--- NOTE | 2017-01-10 17:49 | Electrocardiograph Report ---
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
== END 2017-01-09 19:05 | disposition home or self-care (01) ==
LOC: 3BNU 16:11 → EMEROO 16:11 → SUATTDRO 19:42 → 3BNU 21:25
PROVIDERS: ADMIT Nurse Practitioner Family; ATTEND Student in an Organized Health Care Education/Training Program

== ENCOUNTER 2017-01-13 08:39 | Observation (INO) ==
--- NOTE | 2017-01-13 08:42 | Emergency Department Note ---
Disposition Clinical Impression: Intractable seizure disorder, Post-ictal confusion Disposition: Admitted As Inpatient Condition: Good General Adult HPI - General Chief complaint: ED Seizure Stated complaint: seizures Time Seen by Provider: 01/13/17 08:40 - Related Data Home Medications Medication Instructions Recorded Confirmed Albuterol Neb [AccuNeb] 1.25 mg IH Q8H PRN 11/25/16 01/13/17 Bupropion HCl [Wellbutrin Xl] 300 mg PO DAILY 11/25/16 01/13/17 Carvedilol [Coreg] 6.25 mg PO BID 11/25/16 01/13/17 Diltiazem CD (24hr) [Cardizem CD] 240 mg PO DAILY 11/25/16 01/13/17 Famotidine [Pepcid] 40 mg PO DAILY 11/25/16 01/13/17 Fluticasone Propionate Nasal 50 mcg NS BID 11/25/16 01/13/17 [Flonase] Furosemide [Lasix] 20 mg PO DAILY 11/25/16 01/13/17 Lansoprazole [Prevacid] 30 mg PO DAILY 11/25/16 01/13/17 Levothyroxine [Synthroid] 175 mcg PO QAM 11/25/16 01/13/17 Linaclotide [Linzess] 145 mcg PO DAILY 11/25/16 01/13/17 Mometasone/Formoterol [Dulera 200 2 puff IH BID 11/25/16 01/13/17 Mcg/5 Mcg Inhaler] Nortriptyline [Pamelor] 10 mg PO HS 11/25/16 01/13/17 Prochlorperazine Maleate 10 mg PO Q8HR PRN 11/25/16 01/13/17 [Compazine] Promethazine Syrup [Phenergan 12.5 mg PO Q6H PRN 11/25/16 01/13/17 Syrup] Tiotropium [Spiriva] 18 mcg IH 0700 11/25/16 01/13/17 Topiramate [Topamax] 25 - 50 mg PO HS 11/25/16 01/13/17 Gabapentin [Neurontin] 300 mg PO BID 01/08/17 01/13/17 LevETIRAcetam [Keppra] 750 mg PO BID 01/08/17 01/13/17 Potassium Chloride [K-Tab ER] 20 meq PO DAILY 01/08/17 01/13/17 clonazePAM [Klonopin] 0.5 mg PO BID PRN 01/08/17 01/13/17 Allergies Allergy/AdvReac Type Severity Reaction Status Date / Time celecoxib [From Celebrex] Allergy Itching Verified 01/08/17 19:40 ondansetron AdvReac Headache Verified 01/08/17 19:40 [From Zofran (as hydrochloride)] Past Medical History - Past Medical History Medical history: Reports: arthritis, asthma, cancer, COPD, GERD, hypertension, thyroid disease, syncope, TIA, other Surgical history: Reports: breast surgery, cancer surgery, hysterectomy, thyroidectomy Psychiatric history: Reports: no psych history 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 - Social History Smoking Status: Former smoker Smokeless Tobacco Status: No Alcohol use: Reports: none Drug use: Reports: none Course Vital Signs Temperature 97.8 F 01/13/17 08:41 Pulse Rate 68 01/13/17 08:41 Respiratory Rate 14 01/13/17 08:41 Blood Pressure 94/71 01/13/17 08:41 O2 Sat by Pulse Oximetry 95 01/13/17 08:41 Temperature 97.7 F 01/13/17 15:25 Pulse Rate 76 01/13/17 15:25 Respiratory Rate 16 01/13/17 15:25 Blood Pressure 118/74 01/13/17 15:25 O2 Sat by Pulse Oximetry 93 01/13/17 15:25 Oxygen Delivery Oxygen Delivery Room Air Medical Decision Making - Lab Data Result diagrams: 01/13/17 08:51 01/13/17 08:51 Lab Results 01/13/17 01/13/17 01/13/17 Range/Units 08:51 08:51 08:52 WBC 9.7 (4.3-11.1) K/mcL RBC 4.15 (3.82-4.97) M/mcL Hgb 12.4 (11.5-15.4) g/dL Hct 37.3 (35.3-44.9) % MCV 89.9 (83.0-100.0) fL MCH 29.9 (28.0-33.3) pg MCHC 33.2 (31.6-35.5) g/dL RDW 13.1 (11.5-14.5) % Plt Count 547 H D (140-400) K/mcL MPV 8.9 L (9.4-12.4) fL Immature Gran % 1.2 (0-4) % Seg Neutrophils % 64.0 % Lymphocytes % 24.3 % Monocytes % 7.5 % Eosinophils % 2.1 % Basophils % 0.9 % Neutrophils # 6.2 (1.6-8.9) K/mcL Lymphocytes # 2.4 (0.6-4.6) K/mcL Monocytes # 0.7 (0.0-1.3) K/mcL Eosinophils # 0.2 (0.0-0.6) K/mcL Basophils # 0.1 (0.0-0.2) K/mcL Immature Plt Fraction 1.9 (1.1-6.1) % Sodium 140 (136-145) mEq/L Potassium 4.2 (3.5-4.5) mEq/L Chloride 107 (98-109) mEq/L Carbon Dioxide 21 (19-29) mEq/L BUN 25 H (7-20) mg/dL Creatinine 1.31 H (0.57-1.11) mg/dL Est GFR ( Amer) 51 L (> 60) Est GFR (Non-Af Amer) 42 L (> 60) BUN/Creatinine Ratio 19 (6-26) Glucose 146 H (70-99) mg/dL POC Glucose (58-89) Calculated Osmolality 297 (280-300) Calcium 10.1 (8.6-10.8) mg/dL Phosphorus 3.1 (2.3-4.7) mg/dL Magnesium 2.2 (1.6-2.6) mg/dL Creatine Kinase 82 (29-168) Units/L Urine Color Yellow (Yellow) Urine Clarity Clear (Clear) Urine pH 5.5 (5.0-8.0) pH Units Ur Specific [place] 1.021 (1.010-1.025) Urine Protein Negative (Neg-Trace) mg/dL Urine Glucose (UA) Normal (Normal) mg/dL Urine Ketones Negative (Negative) mg/dL Urine Blood Negative (Negative) Urine Nitrite Negative (Negative) Urine Bilirubin Negative (Negative) Urine Urobilinogen Normal (Normal) mg/dL Ur Leukocyte Esterase Negative (Negative) Urine Opiates Screen (Kmtyva=112) ng/mL Ur Barbiturates Screen (Mzuotb=517) ng/mL Ur Phencyclidine Scrn (Cutoff=25) ng/mL Ur Amphetamines Screen (Pjwqlm=3834) ng/mL U Benzodiazepines Scrn (Mqkyxa=119) ng/mL Urine Cocaine Screen (Cutoff= 300) ng/mL U Marijuana (THC) Screen (Cutoff = 50) ng/mL 01/13/17 01/13/17 Range/Units 08:52 08:54 WBC (4.3-11.1) K/mcL RBC (3.82-4.97) M/mcL Hgb (11.5-15.4) g/dL Hct (35.3-44.9) % MCV (83.0-100.0) fL MCH (28.0-33.3) pg MCHC (31.6-35.5) g/dL RDW (11.5-14.5) % Plt Count (140-400) K/mcL MPV (9.4-12.4) fL Immature Gran % (0-4) % Seg Neutrophils % % Lymphocytes % % Monocytes % % Eosinophils % % Basophils % % Neutrophils # (1.6-8.9) K/mcL Lymphocytes # (0.6-4.6) K/mcL Monocytes # (0.0-1.3) K/mcL Eosinophils # (0.0-0.6) K/mcL Basophils # (0.0-0.2) K/mcL Immature Plt Fraction (1.1-6.1) % Sodium (136-145) mEq/L Potassium (3.5-4.5) mEq/L Chloride (98-109) mEq/L Carbon Dioxide (19-29) mEq/L BUN (7-20) mg/dL Creatinine (0.57-1.11) mg/dL Est GFR ( Amer) (> 60) Est GFR (Non-Af Amer) (> 60) BUN/Creatinine Ratio (6-26) Glucose (70-99) mg/dL POC Glucose 140 H (58-89) Calculated Osmolality (280-300) Calcium (8.6-10.8) mg/dL Phosphorus (2.3-4.7) mg/dL Magnesium (1.6-2.6) mg/dL Creatine Kinase (29-168) Units/L Urine Color (Yellow) Urine Clarity (Clear) Urine pH (5.0-8.0) pH Units Ur Specific [place] (1.010-1.025) Urine Protein (Neg-Trace) mg/dL Urine Glucose (UA) (Normal) mg/dL Urine Ketones (Negative) mg/dL Urine Blood (Negative) Urine Nitrite (Negative) Urine Bilirubin (Negative) Urine Urobilinogen (Normal) mg/dL Ur Leukocyte Esterase (Negative) Urine Opiates Screen Negative (Ykflho=600) ng/mL Ur Barbiturates Screen Negative (Uuhcbb=040) ng/mL Ur Phencyclidine Scrn Negative (Cutoff=25) ng/mL Ur Amphetamines Screen Positive H (Twdrhm=5045) ng/mL U Benzodiazepines Scrn Negative (Jtapih=816) ng/mL Urine Cocaine Screen Negative (Cutoff= 300) ng/mL U Marijuana (THC) Screen Negative (Cutoff = 50) ng/mL Attestation Statement - Attestation Attestation: I examined this patient and my medical decision-making was reviewed with the Resident Physician. I agree with the documented findings, disposition and treatment plan as described except to the extent set forth below. [id number] time provided in conjunction with the resident physician Patient arrives by EMS from home after a witnessed seizure. Patient with an existing history of seizures recently due to a cerebral aneurysm. She was postictal in transport and described as combative at the scene per EMS. Patient alert and confused at the time of arrival. Home medication list reviewed by me
[2017-01-13] MEDS ORDERED: 0.9 % Sodium Chloride 1,000 ML IVC ONE (08:44)
[2017-01-13 08:59] LABS: Basophils # 0.1 K/mcL (0.0-0.2); Basophils % 0.9 %; Eosinophils # 0.2 K/mcL (0.0-0.6); Eosinophils % 2.1 %; Hematocrit 37.3 % (35.3-44.9); Hemoglobin 12.4 g/dL (11.5-15.4); Immature Granulocytes % 1.2 % (0-4); Immature Platelets 1.9 % (1.1-6.1); Lymphocytes # 2.4 K/mcL (0.6-4.6); Lymphocytes % 24.3 %; Mean Corpuscular HGB Conc 33.2 g/dL (31.6-35.5); Mean Corpuscular Hemoglobin 29.9 pg (28.0-33.3); Mean Corpuscular Volume 89.9 fL (83.0-100.0); Mean Platelet Volume 8.9 fL (9.4-12.4); Monocytes # 0.7 K/mcL (0.0-1.3); Monocytes % 7.5 %; Neutrophils # 6.2 K/mcL (1.6-8.9); Platelet Count 547 K/mcL (140-400); Red Blood Count 4.15 M/mcL (3.82-4.97); Red Cell Distribution Width 13.1 % (11.5-14.5)
[2017-01-13 09:01] LABS: Bilirubin,Urine Negative (Negative); Blood,Urine Negative (Negative); Clarity,Urine Clear (Clear); Color,Urine Yellow (Yellow); Glucose,Urine (UA) Normal (Normal); Ketones,Urine Negative (Negative); Leukocyte Esterase,Urine Negative (Negative); Nitrite,Urine Negative (Negative); PH,Urine 5.5 pH Units (5.0-8.0); Protein,Urine Negative (Neg-Trace); Specific Gravity,Urine 1.021 (1.010-1.025); Urobilinogen,Urine Normal (Normal)
[2017-01-13] MEDS ORDERED: *HR* LORazepam 2 MG/ML VIAL ONE (09:05)
[2017-01-13 09:06] LABS: Amphetamine Screen,Urine Positive ng/mL (Cutoff=1000); Barbiturate Screen,Urine Negative ng/mL (Cutoff=200); Benzodiazepines Screen,Urine Negative ng/mL (Cutoff=200); Cannabinoid Screen,Urine Negative ng/mL (Cutoff = 50); Cocaine Screen,Urine Negative ng/mL (Cutoff= 300); Opiate Screen,Urine Negative ng/mL (Cutoff=300); Phencyclidine Screen,Urine Negative ng/mL (Cutoff=25)
[2017-01-13] MEDS ORDERED: *HR* LORazepam 2 MG/ML VIAL IVP ONE ×2 (09:06→09:13)
[2017-01-13 09:12] LABS: Calcium 10.1 mg/dL (8.6-10.8); Magnesium 2.2 mg/dL (1.6-2.6); Phosphorous 3.1 mg/dL (2.3-4.7); Potassium 4.2 mEq/L (3.5-4.5)
--- NOTE | 2017-01-13 09:23 | Emergency Department Note ---
Disposition Clinical Impression: Intractable seizure disorder, Post-ictal confusion Disposition: Admitted As Inpatient Condition: Good Time of Disposition: 10:11 Seizure HPI - General Chief Complaint: ED Seizure Stated Complaint: seizures Time Seen by Provider: 01/13/17 08:40 Source: family, EMS Mode of arrival: EMS Limitations: altered mental status Nursing Notes Reviewed: Yes Vital Signs Reviewed: Yes - History of Present Illness HPI Narrative: Patient presents to the ED with the chief complaint of seizures. Patient was brought in via EMS and evaluated upon arrival. According EMS. The patient has a history of new onset seizure disorder within the last 1-2 months. Does have a history of several brain aneurysms. Reports that she is seeing neurology here and was supposed to have an appointment today. Reports they did not witness any seizure-like activity but that the patient's reports generalized tonic-clonic type movements of an unknown duration. Upon arrival, the states that she was feeling fine last night and then he woke her up this morning and she was slightly confused. Reports that she then had generalized tonic-clonic type movements. She is postictal. Currently, and he states that sometimes this can last for several hours to days. He went to wake her up at 6:30 this morning to get her ready for her neurology appointment here with Dr. Campos , but was transported here due to her seizure-like activity. He reports that he gave her her Topamax and Klonopin this morning and that is the only medication she is on for her seizure disorder. No recent fevers or illnesses, he was denying any chest pain or difficulty breathing - Related Data Home Medications Medication Instructions Recorded Confirmed Albuterol Neb [AccuNeb] 1.25 mg IH Q8H PRN 11/25/16 01/13/17 Bupropion HCl [Wellbutrin Xl] 300 mg PO DAILY 11/25/16 01/13/17 Carvedilol [Coreg] 6.25 mg PO BID 11/25/16 01/13/17 Diltiazem CD (24hr) [Cardizem CD] 240 mg PO DAILY 11/25/16 01/13/17 Famotidine [Pepcid] 40 mg PO DAILY 11/25/16 01/13/17 Fluticasone Propionate Nasal 50 mcg NS BID 11/25/16 01/13/17 [Flonase] Furosemide [Lasix] 20 mg PO DAILY 11/25/16 01/13/17 Lansoprazole [Prevacid] 30 mg PO DAILY 11/25/16 01/13/17 Levothyroxine [Synthroid] 175 mcg PO QAM 11/25/16 01/13/17 Linaclotide [Linzess] 145 mcg PO DAILY 11/25/16 01/13/17 Mometasone/Formoterol [Dulera 200 2 puff IH BID 11/25/16 01/13/17 Mcg/5 Mcg Inhaler] Nortriptyline [Pamelor] 10 mg PO HS 11/25/16 01/13/17 Prochlorperazine Maleate 10 mg PO Q8HR PRN 11/25/16 01/13/17 [Compazine] Promethazine Syrup [Phenergan 12.5 mg PO Q6H PRN 11/25/16 01/13/17 Syrup] Tiotropium [Spiriva] 18 mcg IH 0700 11/25/16 01/13/17 Topiramate [Topamax] 25 - 50 mg PO HS 11/25/16 01/13/17 Gabapentin [Neurontin] 300 mg PO BID 01/08/17 01/13/17 LevETIRAcetam [Keppra] 750 mg PO BID 01/08/17 01/13/17 Potassium Chloride [K-Tab ER] 20 meq PO DAILY 01/08/17 01/13/17 clonazePAM [Klonopin] 0.5 mg PO BID PRN 01/08/17 01/13/17 Allergies Allergy/AdvReac Type Severity Reaction Status Date / Time celecoxib [From Celebrex] Allergy Itching Verified 01/08/17 19:40 ondansetron AdvReac Headache Verified 01/08/17 19:40 [From Zofran (as hydrochloride)] Limitations: ROS unobtainable due to patients medical condition Past Medical History - Past Medical History Source: old records reviewed, obtained from family Medical history: Reports: arthritis, asthma, cancer, COPD, GERD, hypertension, thyroid disease, syncope, TIA, other Surgical history: Reports: breast surgery, cancer surgery, hysterectomy, thyroidectomy Psychiatric history: Reports: no psych history 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 Absent: periorbital swelling - ENT ENT exam: normal oropharynx, mucous membranes moist - Neck Neck exam: Present: trachea midline. Absent: tenderness - Chest Chest inspection: Present: normal inspection, symmetric chest wall rise. Absent : tenderness, rash - Respiratory Respiratory exam: Present: normal lung sounds bilaterally - Cardiovascular Cardiovascular exam: Present: regular rate, normal rhythm, normal heart sounds - Abdominal Exam Abdominal exam: Present: soft, Non-Tender. Absent: tenderness, distention, guarding, rebound, rigidity - Extremities Exam Extremities exam: Present: normal capillary refill. Absent: pedal edema - Expanded Lower Extremity Exam Hip/Pelvis exam: Present: pelvis stable - Neurological Exam Neurological exam: Present: other (Patient is postictal, her eyes are open spontaneously, and she is moving all extremities, however, she is not following commands at this point. She is mumbling incoherently but does respond and track movement.). Absent: oriented X3 - Skin Skin exam: Present: warm, dry, intact, normal color Course Course Narrative: 56-year-old female with history of seizure disorder, relatively new onset. After being diagnosed with several brain aneurysms and has been followed here and at [place]. Had an unknown time of generalized tonic-clonic seizures today and is now postictal. Labs pending. Head CT will admit. - Consultations Consultation #1: admitted to hospitalist service. also have paged neuro but have not heard back yet. will discuss loading dose of anti-epileptic medications if neuro would like. Time: 10:11 Consultation #2: Spoke with the on-call neurologist, Dr. Hastings. States that he would recommend increasing her Topamax from 50 mg at night to 50 mg twice a day. They will consult as an inpatient for postictal after potential seizure. Reports that she did just have a 48-hour EEG and does have a known small single aneurysm. Time: 10:27 Vital Signs Temperature 97.8 F 01/13/17 08:41 Pulse Rate 68 01/13/17 08:41 Respiratory Rate 14 01/13/17 08:41 Blood Pressure 94/71 01/13/17 08:41 O2 Sat by Pulse Oximetry 95 01/13/17 08:41 Temperature 97.8 F 01/13/17 08:41 Pulse Rate 67 01/13/17 09:15 Respiratory Rate 16 01/13/17 10:19 Blood Pressure 121/66 01/13/17 10:19 O2 Sat by Pulse Oximetry 94 01/13/17 09:15 Oxygen Delivery Oxygen Delivery Room Air Seizure - Medical Records Medical records reviewed: Yes I reviewed the patient's medical records. - Lab Data Lab results reviewed: Yes I reviewed the patient's lab results. Result diagrams: 01/13/17 08:51 01/13/17 08:51 Lab Results 01/13/17 01/13/17 01/13/17 Range/Units 08:51 08:51 08:52 WBC 9.7 (4.3-11.1) K/mcL RBC 4.15 (3.82-4.97) M/mcL Hgb 12.4 (11.5-15.4) g/dL Hct 37.3 (35.3-44.9) % MCV 89.9 (83.0-100.0) fL MCH 29.9 (28.0-33.3) pg MCHC 33.2 (31.6-35.5) g/dL RDW 13.1 (11.5-14.5) % Plt Count 547 H D (140-400) K/mcL MPV 8.9 L (9.4-12.4) fL Immature Gran % 1.2 (0-4) % Seg Neutrophils % 64.0 % Lymphocytes % 24.3 % Monocytes % 7.5 % Eosinophils % 2.1 % Basophils % 0.9 % Neutrophils # 6.2 (1.6-8.9) K/mcL Lymphocytes # 2.4 (0.6-4.6) K/mcL Monocytes # 0.7 (0.0-1.3) K/mcL Eosinophils # 0.2 (0.0-0.6) K/mcL Basophils # 0.1 (0.0-0.2) K/mcL Immature Plt Fraction 1.9 (1.1-6.1) % Sodium 140 (136-145) mEq/L Potassium 4.2 (3.5-4.5) mEq/L Chloride 107 (98-109) mEq/L Carbon Dioxide 21 (19-29) mEq/L BUN 25 H (7-20) mg/dL Creatinine 1.31 H (0.57-1.11) mg/dL Est GFR ( Amer) 51 L (> 60) Est GFR (Non-Af Amer) 42 L (> 60) BUN/Creatinine Ratio 19 (6-26) Glucose 146 H (70-99) mg/dL Calculated Osmolality 297 (280-300) Calcium 10.1 (8.6-10.8) mg/dL Phosphorus 3.1 (2.3-4.7) mg/dL Magnesium 2.2 (1.6-2.6) mg/dL Urine Color Yellow (Yellow) Urine Clarity Clear (Clear) Urine pH 5.5 (5.0-8.0) pH Units Ur Specific [place] 1.021 (1.010-1.025) Urine Protein Negative (Neg-Trace) mg/dL Urine Glucose (UA) Normal (Normal) mg/dL Urine Ketones Negative (Negative) mg/dL Urine Blood Negative (Negative) Urine Nitrite Negative (Negative) Urine Bilirubin Negative (Negative) Urine Urobilinogen Normal (Normal) mg/dL Ur Leukocyte Esterase Negative (Negative) Urine Opiates Screen (Etxorr=598) ng/mL Ur Barbiturates Screen (Oppqss=205) ng/mL Ur Phencyclidine Scrn (Cutoff=25) ng/mL Ur Amphetamines Screen (Jgynai=8751) ng/mL U Benzodiazepines Scrn (Wgbzqk=208) ng/mL Urine Cocaine Screen (Cutoff= 300) ng/mL U Marijuana (THC) Screen (Cutoff = 50) ng/mL 01/13/17 Range/Units 08:52 WBC (4.3-11.1) K/mcL RBC (3.82-4.97) M/mcL Hgb (11.5-15.4) g/dL Hct (35.3-44.9) % MCV (83.0-100.0) fL MCH (28.0-33.3) pg MCHC (31.6-35.5) g/dL RDW (11.5-14.5) % Plt Count (140-400) K/mcL MPV (9.4-12.4) fL Immature Gran % (0-4) % Seg Neutrophils % % Lymphocytes % % Monocytes % % Eosinophils % % Basophils % % Neutrophils # (1.6-8.9) K/mcL Lymphocytes # (0.6-4.6) K/mcL Monocytes # (0.0-1.3) K/mcL Eosinophils # (0.0-0.6) K/mcL Basophils # (0.0-0.2) K/mcL Immature Plt Fraction (1.1-6.1) % Sodium (136-145) mEq/L Potassium (3.5-4.5) mEq/L Chloride (98-109) mEq/L Carbon Dioxide (19-29) mEq/L BUN (7-20) mg/dL Creatinine (0.57-1.11) mg/dL Est GFR ( Amer) (> 60) Est GFR (Non-Af Amer) (> 60) BUN/Creatinine Ratio (6-26) Glucose (70-99) mg/dL Calculated Osmolality (280-300) Calcium (8.6-10.8) mg/dL Phosphorus (2.3-4.7) mg/dL Magnesium (1.6-2.6) mg/dL Urine Color (Yellow) Urine Clarity (Clear) Urine pH (5.0-8.0) pH Units Ur Specific [place] (1.010-1.025) Urine Protein (Neg-Trace) mg/dL Urine Glucose (UA) (Normal) mg/dL Urine Ketones (Negative) mg/dL Urine Blood (Negative) Urine Nitrite (Negative) Urine Bilirubin (Negative) Urine Urobilinogen (Normal) mg/dL Ur Leukocyte Esterase (Negative) Urine Opiates Screen Negative (Oypydk=656) ng/mL Ur Barbiturates Screen Negative (Htobzf=710) ng/mL Ur Phencyclidine Scrn Negative (Cutoff=25) ng/mL Ur Amphetamines Screen Positive H (Nhhfys=5186) ng/mL U Benzodiazepines Scrn Negative (Lycxjz=876) ng/mL Urine Cocaine Screen Negative (Cutoff= 300) ng/mL U Marijuana (THC) Screen Negative (Cutoff = 50) ng/mL - Radiology Data Radiology results reviewed: Yes I reviewed the patient's radiology results. - EKG Data EKG attestation: Yes I reviewed and interpreted this EKG. EKG results narrative: Sinus rhythm, rate 66, MO interval 190, QRS 118, QTC 455, nonspecific T-wave changes, no acute ischemic changes Hang - Hang Situation: Demographics, MOA Background: Presenting Complaint, Relevant PMH, Meds, & Allergies Assessment: Vital Signs, Course and respsone to treatment, Exam Concerns, Patient/Family Expectation, Pertinant Lab Results, Outstanding Labs Recommendation: Barrier(s) to disposition, Recommendation based on pending studies, treatments, or consults Hang Report Given to: Dr. Lavelle Mauricio Repor Time: 10:11
--- NOTE | 2017-01-13 10:14 | Event Note ---
Date of Encounter: 01/13/17 Time of Encounter: 10:10 Patient seen and examined with MANAGER EXPORT. Patient presents with confusion without witnessed seizure. Possibly post-ictal. This is 5th seizure since the onset of seizures 2 months ago. She was found on cerebral angiography to have multiple brain aneurysms. CT head today shows no bleed. She denies headache or neck pain. Pupil is dilated and urine positive for amphetamine??. She is on keppra and clonazepam and compliant with them. GILBERT, will check CPK level and hydrate. Neurology evaluation
[2017-01-13] MEDS ORDERED: *HR* LORazepam 2 MG/ML VIAL IVP PRN ×2 (11:10→11:59)
[2017-01-13] MEDS ORDERED: Naloxone 0.4 MG/ML INJ IVP PRN (11:50)
[2017-01-13] MEDS ORDERED: Albuterol Neb 1.25 MG/3 ML VIAL IH PRN (11:52)
--- NOTE | 2017-01-13 12:08 | Internal Med History&Physical ---
Date of Encounter: 01/13/17 Time of Encounter: 12:01 Assessment and Plan (1) Intractable seizure disorder Current visit: Yes Status: Acute 2-month H/O grand mal seizures, postictal confusion since awakening this morning. Neuro following outpatient and was supposed to see today. Given Ativan in ED. Start seizure precaution and consult neurology~(Neuro called in ED to see patient today) Continue ativan 2mg IVP Q6hr PRN for seizures Continuous tele respiratory support PRN seizure precaution and padded rails Continue Keppra and Clonazepam (2) Post-ictal confusion Current visit: Yes Status: Acute Remains confused, only alert to self, some awareness of situation. Continue to monitor for improvement or decline of mental status. See plan above. (3) HTN (hypertension) Current visit: No Status: Chronic h/o HTN, but was initially mildly hypotensive upon arrival. Now hemodynamically stable, continue home BP meds and continue to monitor. Qualifiers: Hypertension type: essential hypertension Qualified Code(s): I10 - Essential (primary) hypertension (4) Hypotension Current visit: Yes Status: Acute Was initially hypotensive upon arrival to ED. Hemodynamically stable follow IV fluid bolus. Qualifiers: Hypotension type: unspecified hypotension type Qualified Code(s): I95.9 - Hypotension, unspecified (5) Hypothyroidism Current visit: No Status: Chronic Continue synthroid Qualifiers: Qualified Code(s): E03.9 - Hypothyroidism, unspecified (6) Positive urine drug screen Current visit: Yes Status: Acute Positive for amphetamines. Likely the result of Wellbutrin. Patients reports that he is responsible for dosing her medications and that she does not do any recreational drugs to his knowledge. (7) DVT prophylaxis Current visit: Yes Status: Acute Platelet count elevated at 547. Start lovenox 40mg SC daily Internal Medicine - H&P: HPI Chief complaint: seizure Admitted From: Home Plans for Post Hospital Care: Home History of present illness: Ms. Fry is a 56 year old female with a PMH of arthritis, breast CA, COPD, GERD, HTN, hypothyroidism, TIA, and x5 brain aneurysm without hemorrhage presents to [facility] today in a post ictal state following an unwitnessed seizure. at bedside and reports that she has a h/o brain aneurysms and is being follow by Dr. Machuca and Dr. Mattson, additionally reports new seizure activity which began 2 months ago. She has had multiple Grand Mal seizures requiring hospitalization at [facility]. reports that this morning he noticed she was confused and lethargic when he attempted to wake her. He admits to giving her Klonipin and keppra as he was instructed if he suspected a seizure event. He then attempted to get patient to vehicle for transport to ED but he reports she fell and struck the back of her head against the car door. No Obvious head trauma. Upon arrival to ED she remained postictal, confused and lehtargic. Head CT negative, CMP, CBC negative, UA negative. UDS positive for amphetamines likely d/t wellbutrin use. Neuro consulted in ED. Being admitted for further workup and evaluation. Past Med Surg Social Fam HX - Past Medical History Medical history: arthritis, asthma, cancer, COPD, GERD, hypertension, seizures, thyroid disease, syncope, TIA, other Psychiatric history: no psych history - Past Surgical History Surgical History: breast surgery, cancer surgery, hysterectomy, thyroidectomy - Social History Smoking Status: Former smoker Smokeless Tobacco Status: No Alcohol use: none Drug use: none - Family History Mother Adopted: No Living Status: Hx Family Cancer: Yes Father Adopted: No Living Status: Hx Family Cancer: Yes Hx Family Endocrine Disorder: Yes Internal Medicine - H&P: Meds Albuterol Neb [AccuNeb] 1.25 mg IH Q8H PRN 11/25/16 [History] Bupropion HCl [Wellbutrin Xl] 300 mg PO DAILY 11/25/16 [History] Carvedilol [Coreg] 6.25 mg PO BID 11/25/16 [History] Diltiazem CD (24hr) [Cardizem CD] 240 mg PO DAILY 11/25/16 [History] Famotidine [Pepcid] 40 mg PO DAILY 11/25/16 [History] Fluticasone Propionate Nasal [Flonase] 50 mcg NS BID 11/25/16 [History] Furosemide [Lasix] 20 mg PO DAILY 11/25/16 [History] Lansoprazole [Prevacid] 30 mg PO DAILY 11/25/16 [History] Levothyroxine [Synthroid] 175 mcg PO QAM 11/25/16 [History] Linaclotide [Linzess] 145 mcg PO DAILY 11/25/16 [History] Mometasone/Formoterol [Dulera 200 Mcg/5 Mcg Inhaler] 2 puff IH BID 11/25/16 [ History] Nortriptyline [Pamelor] 10 mg PO HS 11/25/16 [History] Prochlorperazine Maleate [Compazine] 10 mg PO Q8HR PRN 11/25/16 [History] Promethazine Syrup [Phenergan Syrup] 12.5 mg PO Q6H PRN 11/25/16 [History] Tiotropium [Spiriva] 18 mcg IH 0700 11/25/16 [History] Topiramate [Topamax] 25 - 50 mg PO HS 11/25/16 [History] Gabapentin [Neurontin] 300 mg PO BID 01/08/17 [History] LevETIRAcetam [Keppra] 750 mg PO BID 01/08/17 [History] Potassium Chloride [K-Tab ER] 20 meq PO DAILY 01/08/17 [History] clonazePAM [Klonopin] 0.5 mg PO BID PRN 01/08/17 [History] 3 Allergy/AdvReac Type Severity Reaction Status Date / Time celecoxib [From Celebrex] Allergy Itching Verified 01/08/17 19:40 ondansetron AdvReac Headache Verified 01/08/17 19:40 [From Zofran (as hydrochloride)] All Systems PM: A 10-system review of systems was performed and is negative for pertinent findings except as documented above in the HPI. - Constitutional Constitutional: as per HPI, fatigue, falls, lethargy, no excessive sweating, no fever(s), no malaise, no night sweats, no weight gain, no weight loss - EENT Eyes: no blurry vision, no change in vision - Cardiovascular Cardiovascular ROS IM: lightheadedness, no chest pain, no diaphoresis, no dyspnea, no dyspnea on exertion, no edema, no irregular heart rhythm, no palpitations, no syncope - Respiratory Respiratory: no cough, no dyspnea, no wheezing, no excessive phlegm production - Gastrointestinal Gastrointestinal: no abdominal pain, no diarrhea, no hematemesis, no hematochezia, no melena, no nausea, no vomiting - Genitourinary Genitourinary: no change in urinary stream, no dysuria, no flank pain, no hematuria - Musculoskeletal Musculoskeletal ROS IM: no numbness, no tingling - Integumentary Integumentary IM: no rash, no unusual bruising - Neurological Neurological ROS: behavioral changes, confusion, dizziness, memory loss, no disequilibrium, no focal weakness, no frequent falls, no headache(s), no lack of coordination, no loss of vision, no numbness, no paresthesias, no tingling - Psychiatric Psychiatric: behavioral changes, confusion, difficulty concentrating, irritability - Constitutional Vitals: Temp Pulse Resp BP Pulse Ox 97.8 F 67 16 107/70 94 01/13/17 08:41 01/13/17 09:15 01/13/17 10:19 01/13/17 11:05 01/13/17 09:15 General appearance: Present: cooperative, A&O X 1, mild distress, answers questions appropriately - Head Head exam: Present: atraumatic, normocephalic - Eye Eye exam: Present: EOMI, PERRL, conjuntiva pink, sclera anicteric Pupils: Present: normal accommodation, PERRL Additional comments: right pupil more sluggish in comparison to the left but does constrict - Neck Neck exam general surgery: Present: supple, trachea midline. Absent: lymphadenopathy - Respiratory Respiratory exam: Present: CTAB. Absent: accessory muscle use, rales, rhonchi, wheezes - Cardiovascular Cardiovascular exam: Present: RRR, +S1, +S2. Absent: diastolic murmur, gallop, rubs, systolic murmur - GI/Abdominal GI/Abdominal exam: Present: normal bowel sounds, soft, no peritoneal signs. Absent: distended, tenderness - Extremities Exam Extremities exam: Present: warm, radial pulses palpable and symmetrical. Absent : calf tenderness, cyanotic, pedal edema - Neurological Exam Neurological exam: Present: CN II-XII intact, oriented X3, no focal deficits. Absent: pronater drift, facial droop, speech deficit - Skin Skin exam: Present: dry, intact Internal Med - H&P Results - Labs CBC & Chem 7: 01/13/17 08:51 01/13/17 08:51 - Diagnostic Studies CT scan - head Status: image reviewed by me Additional comments: no acute intracranial abnormalities
[2017-01-13] MEDS: 0.9 % Sodium Chloride 1,000 ML IVC SCH ×2 (13:04→21:47)
--- NOTE | 2017-01-13 13:37 | Neurology - Consult Note ---
Addendum entered and electronically signed by Yessenia Hastings MD 01/13/17 17:41: I saw and examined the patient with the presence of Dr. Artie Camarillo. I agree with his history taking, physical examination, assessment and plan. In summary, this is a 56 year old woman of Dr. Desi Maravilla who developed new onset of seizures since the last 2-3 months and maybe a little longer than that. She develops these seizure like activity where she would kick, flailing her arms and body lasting few minutes in duration followed by prolonged hypersomnolence and confusion, up to few days in duration, after which she would be function normal. Her of more than 40 years of marriage reports that the symptoms are new and started few months ago. After the seizure like activity started she saw Dr. Campos who started her on Keppra 500mg bid and she was apparently doing better and then she had recurrent seizure and the keppra was increased to 750mg bid about two weeks ago. And then she developed another seizure this morning and in the ER she was having her typical hypersomnolence and confusion again. Per medical records, she completed 48 hours ambulatory EEG which was reported a normal study. Her MRI of brain was reported normal as well. She was also evaluated at [facility] in [place] somewhere in November where had full seizure work up as well. Daughter reports that she bit her tongue at the time and her also confirmed that she bit her tongue and that they saw biting xavi on the left side of her tongue. But this only occurred once. She has had no urinary incontinence. At the time of this interview, she was confused and talking with dysarthria as well as abnormal content. She is now hypersomnolence but just having dysarthria and confusion. She reports hallucinations. Assessment: 1. Recurrent seizure vs psychogenic seizure with atypical prolonged postictal confusion and mental status and presentation of psychosis in the form of hallucinations this occurred more than 8 hours after the witnessed seizure and is still going. The constellation of her behavioral changes and speech difficulty would concern for psychogenic seizure. The normal 48 hour ambulatory EEG and repeated normal routine EEG also support diagnosis of non-epileptic events. 2. However, the one episode of seizure associated with tongue biting concerns for epileptic seizure, this was reported by daughter and and occurred at outside hospital and can not be confirmed with certainty. 3. Current plan of treatment would be to obtain MRI of brain to rule out intracranial abnormality. Will perform CSF (via IR) study to rule of encephalitis. 4. Due to new occurrence of psychosis and concerns for psychogenic seizure, would recommend psychiatric evaluation as well. Original Note: <Artie Camarillo - Last Filed: 01/13/17 15:23> Date of Encounter: 01/13/17 Time of Encounter: 11:15 Assessment and Plan (1) Seizure disorder Current Visit: Yes Status: Acute Patient recently diagnosed with a seizure disorder 6-7 weeks ago. Family denies that she ever has any incontinance, and reprots that she had tongue biting only on the first occurrence of the seizures on 12/02/16. Reportedly tonic-clonic. The patient's neurologist has been increasing her Keppra and is currently at 750 mg BID. She reportedly has post-ictal states lasting hours to days in duration, which is longer than would be expected. EEG was performed today that did not demonstrate any seizure activity, nor did it show slowing consistent with post-ictal activity Patient Keppra dosage increased to 1000 mg BID Continue supportive care and monitoring f/u with her neurologist, Dr. Mattson in 1 week following discharge (2) Post-ictal confusion Current Visit: Yes Status: Acute No seizure event observed, the family thinks that it occurred during the night. Patient presented with confusion that her family states is normal for her following seizure events, they think that she must have had an event over the course of the night. Patient appears to be slowly improving following re- examination several hours later. EEG performed today did not show any seizure activity or signs of post-ictal slowing. Patient's family states that this takes several hours-days to resolve typically (3) Positive urine drug screen Current Visit: Yes Status: Acute Urine positive for amphetamines and presents with dilated pupils. Family denies that she has been having any use of illicit substances and states that she has not had any opportunity to do anything illegal in the recently. Possible false positive? History of Present Illness Chief complaint: AMS, Seizure HPI: Ms. Fry is a 56 year old female with past medical history of thyroid cancer (s/p thyroidectomy), small <2 mm brain aneurysm, COPD, htn, TIA, and seizure disorder presents to [facility] from home with altered mental status, concerning for seizure. When seen the patient is alert, but unable to contribute to the history. Her and family are present who are able to provide the details of the event. The reports waking the patient up for her appointment with her neurologist this morning at 630 and she appeared to be confused, somewhat combative, and not fully oriented at that time. Her was concerned that she had had a seizure during the night that was unwitnessed. He noticed that she had dilated eyes at that time, which are concerning to him as he feels she gets this way either immediately before or after a seizure, He states that she was talking "funny" and wasn't making a lot of sense, though he could understand her. He gave her some klonipin and Topamax. After half an hour she wasn't showing much improvement and he decided to bring her to the hospital. he initially tried to get her in his car, but she went completely limp , and then was very stiff on the ground and somewhat combative and making it difficult. He called EMS and she was brought to the hospital. Where she continued to appear post-ictal. Her and family state that she normally has tonic-clonic seizures, having convulsions. Immediately prior to and during her post-ictal period they state that she has dilated pupils. The patient has a recent diagnosis of seizure disorder, having been diagnosed with them on 12/02 for which she has undergone an extensive workup here and at [facility], during which a small <2 mm brain aneurysm was found. She has been under the care of Dr. Mattson since her diagnosis and he has been increasing her anti-epileptic medications. She recently underwent a 48 EEG monitoring, competed on 01/10/17, that did not appear to show any seizure activity. Her dose of Keppra had been increased to 750mg BID 2-3 weeks ago, and since that point she has not had any additional seizures. Last week they state that he PCP had started her on a medication to decrease seizure severity. Past Med Surg Social Fam HX - Past Medical History Medical history: arthritis, asthma, cancer, COPD, GERD, hypertension, thyroid disease, syncope, TIA, other Psychiatric history: no psych history - Past Surgical History Surgical History: breast surgery, cancer surgery, hysterectomy, thyroidectomy - Social History Smoking Status: Former smoker Smokeless Tobacco Status: No Alcohol use: none Drug use: none - Family History Mother Adopted: No Living Status: Hx Family Cancer: Yes Father Adopted: No Living Status: Hx Family Cancer: Yes Hx Family Endocrine Disorder: Yes Medications and Allergies Albuterol Neb [AccuNeb] 1.25 mg IH Q8H PRN 11/25/16 [History] Bupropion HCl [Wellbutrin Xl] 300 mg PO DAILY 11/25/16 [History] Carvedilol [Coreg] 6.25 mg PO BID 11/25/16 [History] Diltiazem CD (24hr) [Cardizem CD] 240 mg PO DAILY 11/25/16 [History] Famotidine [Pepcid] 40 mg PO DAILY 11/25/16 [History] Fluticasone Propionate Nasal [Flonase] 50 mcg NS BID 11/25/16 [History] Furosemide [Lasix] 20 mg PO DAILY 11/25/16 [History] Lansoprazole [Prevacid] 30 mg PO DAILY 11/25/16 [History] Levothyroxine [Synthroid] 175 mcg PO QAM 11/25/16 [History] Linaclotide [Linzess] 145 mcg PO DAILY 11/25/16 [History] Mometasone/Formoterol [Dulera 200 Mcg/5 Mcg Inhaler] 2 puff IH BID 11/25/16 [ History] Nortriptyline [Pamelor] 10 mg PO HS 11/25/16 [History] Prochlorperazine Maleate [Compazine] 10 mg PO Q8HR PRN 11/25/16 [History] Promethazine Syrup [Phenergan Syrup] 12.5 mg PO Q6H PRN 11/25/16 [History] Tiotropium [Spiriva] 18 mcg IH 0700 11/25/16 [History] Topiramate [Topamax] 25 - 50 mg PO HS 11/25/16 [History] Gabapentin [Neurontin] 300 mg PO BID 01/08/17 [History] LevETIRAcetam [Keppra] 750 mg PO BID 01/08/17 [History] Potassium Chloride [K-Tab ER] 20 meq PO DAILY 01/08/17 [History] clonazePAM [Klonopin] 0.5 mg PO BID PRN 01/08/17 [History] 3 Allergy/AdvReac Type Severity Reaction Status Date / Time celecoxib [From Celebrex] Allergy Itching Verified 01/08/17 19:40 ondansetron AdvReac Headache Verified 01/08/17 19:40 [From Zofran (as hydrochloride)] ROS unobtainable: due to mental status Physical Examination - Vital Signs Vital Signs: Initial Vital Signs Temp Pulse Resp BP Pulse Ox 97.8 F 68 14 94/71 95 01/13/17 08:41 01/13/17 08:41 01/13/17 08:41 01/13/17 08:41 01/13/17 08:41 - Exam Exam: Continued neuro exam: Patient speaking inappropriately stating that there are police officers in the room and answering other questions somewhat inappropriately, b/l miosis and sluggish to react pupils - Constitutional General appearance: comfortable - Neurologic Sensorimotor examination: other (mild decreased sensation on the medial aspect of her right foot and lateral aspect of her right arm) Detailed motor examination: full strength in all major muscle groups Motor examination - right side: 5/5: biceps, triceps, svp, hip flexors, tibialis Anterior, toe extension (EHL), plantarflexion Motor examination - left side: 5/5: biceps, triceps, hip flexors, svp, tibialis Anterior, toe extension (EHL), plantarflexion Detailed sensory examination: light touch (mild decreased sensation on the medial aspect of her right foot and lateral aspect of her right arm) Reflexes: Biceps: 2+, Triceps: 2+, Brachioradialis: 2+, Patella: 1+, Achilles: 1 + Mental Status Examination: awake, alert, follows commands appropriately ( follows most commands appropriately, does not appear to understand others), drowsy, follows simple commands, inattentive, impaired memory, impaired cognition, not reliable historian Cranial nerve examination: PERRL (symetrically dilated pupils, sluggish to react ), EOMI, sensory to face intact, no facial asymmetry is present, no dysarthria, hearing is intact symmetrically, flexes SCM and trapezius muscles symmetrically with full power, tongue protrudes midline Results - Laboratory Findings CBC and BMP: 01/13/17 08:51 01/13/17 08:51 Abnormal lab findings: Abnormal lab results Plt Count 547 K/mcL (140-400) H D 01/13/17 08:51 MPV 8.9 fL (9.4-12.4) L 01/13/17 08:51 BUN 25 mg/dL (7-20) H 01/13/17 08:51 Creatinine 1.31 mg/dL (0.57-1.11) H 01/13/17 08:51 Est GFR ( Amer) 51 (> 60) L 01/13/17 08:51 Est GFR (Non-Af Amer) 42 (> 60) L 01/13/17 08:51 Glucose 146 mg/dL (70-99) H 01/13/17 08:51 Ur Amphetamines Screen Positive ng/mL ([id number]) H 01/13/17 08:52 Consult Discharge Plan - Plan Referrals: Julio Hernandez MD [Primary Care Provider] - <Yessenia Hastings - Last Filed: 01/13/17 17:41> Date of Encounter: 01/13/17 History of Present Illness HPI: Ms. Fry is a 56 year old female All Systems: A 10-system review of systems was performed and is negative for pertinent findings except as documented above in the HPI. Physical Examination - Vital Signs Vital Signs: Initial Vital Signs Temp Pulse Resp BP Pulse Ox 97.8 F 68 14 94/71 95 01/13/17 08:41 01/13/17 08:41 01/13/17 08:41 01/13/17 08:41 01/13/17 08:41 Results - Laboratory Findings CBC and BMP: 01/13/17 08:51 10 08:51 Abnormal lab findings: Abnormal lab results Plt Count 547 K/mcL (140-400) H D 01/13/17 08:51 MPV 8.9 fL (9.4-12.4) L 01/13/17 08:51 BUN 25 mg/dL (7-20) H 01/13/17 08:51 Creatinine 1.31 mg/dL (0.57-1.11) H 01/13/17 08:51 Est GFR ( Amer) 51 (> 60) L 01/13/17 08:51 Est GFR (Non-Af Amer) 42 (> 60) L 01/13/17 08:51 Glucose 146 mg/dL (70-99) H 01/13/17 08:51 POC Glucose 140 (58-89) H 01/13/17 08:54 Ur Amphetamines Screen Positive ng/mL ([id number]) H 01/13/17 08:52
--- NOTE | 2017-01-13 16:56 | EEG/EMG/Oth Biometrics Report ---
EEG Procedure Report Date of procedure: 01/13/17 EEG Procedure: Routine EEG Procedure Note: This EEG was acquired with standard international 1020 system with EKG recording. The background EEG activity was characterized by the presence of posterior dominant alpha rhythm with the best frequency up to 11 Hz. The background activity was reactive to eye openings. Sleep stages were not identified during this tracing. Drowsiness was characterized by drop off of posterior dominant Alpha rhythm. There are no electrographic seizures identified during this tracing. There are no epileptiform discharges and focal slowing noted during this recording. Photic stimulation produced and produced no abnormalities. Hyperventilation procedure not performed EKG tracing showed no significant cardiac dysrhythmia. Impression: This is essentially a normal awake and drowsy EEG. Clinical Correlation: Normal EEGs, however, do not exclude epilepsy. Clinical correlation is advised.
[2017-01-13] MEDS ORDERED: *HR* LORazepam 1 MG TABLET PO ONE (19:54)
[2017-01-13] MEDS: levETIRAcetam 250 MG TABLET PO SCH (20:05)
[2017-01-13] MEDS: Topiramate 25 MG TABLET PO SCH (20:06)
[2017-01-13] MEDS: Gabapentin 300 MG CAPSULE PO SCH (20:06)
[2017-01-13] MEDS ORDERED: levETIRAcetam 250 MG TABLET PO SCH (21:00)
[2017-01-13] MEDS: Fluticasone Propionate Nasal 50 MCG/SPRAY BOTTLE NS SCH (21:56)
[2017-01-14] MEDS ORDERED: *HR* LORazepam 2 MG/ML VIAL ONE (02:40)
[2017-01-14] MEDS ORDERED: Water for inj. (sterile) 10 ML IV ONE (02:40)
[2017-01-14] MEDS: *HR* LORazepam 2 MG/ML VIAL IVP PRN (03:43)
[2017-01-14] MEDS: 0.9 % Sodium Chloride 1,000 ML IVC SCH ×2 (05:38→19:40)
[2017-01-14 06:00] LABS: Hematocrit 35.8 % (35.3-44.9); Hemoglobin 12.2 g/dL (11.5-15.4); Mean Corpuscular Volume 91.1 fL (83.0-100.0); Red Blood Count 3.93 M/mcL (3.82-4.97)
[2017-01-14] MEDS ORDERED: *HR* Enoxaparin 40 MG/0.4 ML SYRINGE SQ SCH (06:00)
[2017-01-14 06:01] LABS: Basophils # 0.1 K/mcL (0.0-0.2); Basophils % 0.7 %; Eosinophils # 0.1 K/mcL (0.0-0.6); Eosinophils % 1.1 %; Immature Granulocytes % 0.7 % (0-4); Lymphocytes # 2.1 K/mcL (0.6-4.6); Lymphocytes % 19.2 %; Mean Corpuscular HGB Conc 34.1 g/dL (31.6-35.5); Mean Platelet Volume 9.1 fL (9.4-12.4); Monocytes # 0.9 K/mcL (0.0-1.3); Monocytes % 8.2 %; Neutrophils # 7.6 K/mcL (1.6-8.9); Platelet Count 387 K/mcL (140-400); Red Cell Distribution Width 13.1 % (11.5-14.5); Segmented Neutrophils % 70.1 %
[2017-01-14 06:14] LABS: Alanine Aminotransferase 69 Units/L (0-55); Albumin 3.9 g/dL (3.5-5.0); Albumin/Globulin Ratio 0.9 (1.1-2.2); Alkaline Phosphatase 233 Units/L (38-126); Aspartate Amino Transferase 38 Units/L (5-34); BUN/Creatinine Ratio 16 (6-26); Bilirubin,Total 0.3 mg/dL (0.2-1.2); Blood Urea Nitrogen 16 mg/dL (7-20); Calcium 9.4 mg/dL (8.6-10.8); Carbon Dioxide 18 mEq/L (19-29); Chloride 111 mEq/L (98-109); Globulin 4.2 g/dL (2.4-3.5); Glucose 119 mg/dL (70-99); Osmolality,Calculated 294 (280-300); Potassium 3.6 mEq/L (3.5-4.5); Sodium 141 mEq/L (136-145); Total Protein 8.1 g/dL (6.0-8.3); eGFR For African Americans > 60 (> 60); eGFR For Non-African Americans 59 (> 60)
[2017-01-14] MEDS: Tiotropium 18 MCG inhalation IH SCH (08:18)
[2017-01-14] MEDS ORDERED: Furosemide 20 MG TABLET PO SCH (09:00)
[2017-01-14] MEDS: Gabapentin 300 MG CAPSULE PO SCH ×2 (09:10→20:23)
[2017-01-14] MEDS: levETIRAcetam 250 MG TABLET PO SCH ×2 (09:10→20:23)
[2017-01-14] MEDS: Famotidine 20 MG TABLET PO SCH (09:11)
[2017-01-14] MEDS: (Linaclotide [Linzess] 145 MCG) PO SCH (09:11)
[2017-01-14] MEDS: Diltiazem CD (24hr) 240 MG CAPSULE PO SCH (09:11)
[2017-01-14] MEDS: Fluticasone Propionate Nasal 50 MCG/SPRAY BOTTLE NS SCH ×2 (09:12→20:30)
[2017-01-14 12:15] LABS: Glucose,CSF 74 mg/dL (40-70); Total Protein,CSF 65 mg/dL (15-45)
[2017-01-14 12:30] LABS: Red Blood Cell,CSF < 0.002 M/mcL
[2017-01-14 12:54] LABS: Appearance,CSF Clear (Clear)
--- NOTE | 2017-01-14 14:27 | Internal Med Progress Note ---
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 Psychiatry not in agreement with such diagnosis, recommending to stop Wellbutrin as it can cause seizures (2) Altered mental status Current Visit: Yes Status: Acute Assessment and plan: unclear etiology, consider possible medication related Stop Nortryptyline Ammonia level is normal MRI brain unremarkable CSF showed increased protein, non specific Qualifiers: Altered mental status type: delirium Qualified Code(s): R41.0 - Disorientation, unspecified (3) Post-ictal confusion Current Visit: Yes Status: Acute (4) HTN (hypertension) Current Visit: No Status: Chronic Assessment and plan: stable Qualifiers: Hypertension type: essential hypertension Qualified Code(s): I10 - Essential (primary) hypertension (5) Hypothyroidism Current Visit: No Status: Chronic Assessment and plan: continue levothyroxine Qualifiers: Qualified Code(s): E03.9 - Hypothyroidism, unspecified (6) Positive urine drug screen Current Visit: Yes Status: Acute - Subjective Interval history: very confused, family says she has been hallucinating talking to family members that are currently in different states. NO seizures today, denies CP or SOB, , complains of numbness on lower extremities and tingling. - Constitutional Vitals: Temp Pulse Resp BP Pulse Ox 97.6 F 87 16 132/76 91 01/14/17 07:15 01/14/17 07:15 01/14/17 08:18 01/14/17 07:15 01/14/17 08:18 General appearance: Present: cooperative, A&O X 2, mild distress, answers questions appropriately - Head Head exam: Present: atraumatic, normocephalic - Eye Eye exam: Present: PERRL (slugish to light stimuli, right pupil 1 mm larger in diameter), conjuntiva pink, sclera anicteric Pupils: Present: PERRL - Neck Neck exam general surgery: Present: supple, trachea midline. Absent: lymphadenopathy - Respiratory Respiratory exam: Present: CTAB. Absent: accessory muscle use, rales, rhonchi, wheezes - Cardiovascular Cardiovascular exam: Present: RRR, +S1, +S2. Absent: diastolic murmur, gallop, rubs, systolic murmur - GI/Abdominal GI/Abdominal exam: Present: normal bowel sounds, soft, no peritoneal signs. Absent: distended, tenderness - Extremities Exam Extremities exam: Present: warm, radial pulses palpable and symmetrical. Absent : calf tenderness, cyanotic, pedal edema - Neurological Exam Neurological exam: Present: CN II-XII intact, no focal deficits. Absent: oriented X3, pronater drift, facial droop, speech deficit - Skin Skin exam: Present: dry, intact Internal Medicine: Result - Labs CBC & Chem 7: 01/14/17 05:46 01/14/17 05:46 Labs: Short CBC 01/14/17 Range/Units 05:46 WBC 10.8 (4.3-11.1) K/mcL Hgb 12.2 (11.5-15.4) g/dL Hct 35.8 (35.3-44.9) % Plt Count 387 (140-400) K/mcL Neutrophils # 7.6 (1.6-8.9) K/mcL BMP 01/14/17 05:46 Sodium 141 Potassium 3.6 Chloride 111 H Carbon Dioxide 18 L BUN 16 Creatinine 0.97 Glucose 119 H Calcium 9.4 Liver Function 01/14/17 Range/Units 05:46 Total Bilirubin 0.3 (0.2-1.2) mg/dL AST 38 H (5-34) Units/L ALT 69 H (0-55) Units/L Alkaline Phosphatase 233 H (38-126) Units/L Albumin 3.9 (3.5-5.0) g/dL - Impressions Impressions Brain MRI 01/13/17 17:57 IMPRESSION: 1. Examination was terminated prematurely due to patient's claustrophobia. 2. No acute intracranial abnormality. No acute infarct. 3. Moderate chronic microvascular ischemic changes, which is similar to the prior exam. D/ / Dario Hare MD / Dario Hare MD Interpreting Provider: Dario Hare MD Lumbar Puncture Fluoroscopy 01/14/17 09:54 IMPRESSION: Successful fluoroscopic-guided lumbar puncture. D/ / 01/14/2017 11:52:52 Yamileth Weston MD / jenny Interpreting Provider: Yamileth Weston MD Consult Discharge Plan - Plan Referrals: Julio Hernandez MD [Primary Care Provider] -
--- NOTE | 2017-01-14 14:47 | Consult Note ---
Date of Encounter: 01/14/17 Time of Encounter: 13:00 Assessment & Recommendation (1) Seizure disorder Current visit: Yes Status: Acute (2) Depression Current visit: No Status: Chronic Assessment & Recommendation: please discontinue Wellbutrin 300 mg as can cause seizure. Qualifiers: Depression Type: major depressive disorder Major depression recurrence: recurrent Active/Remission status: in partial remission Qualified Code(s): F33.41 - Major depressive disorder, recurrent, in partial remission (3) Acute encephalopathy Current visit: No Status: Resolved (4) HTN (hypertension) Current visit: No Status: Chronic Qualifiers: Hypertension type: essential hypertension Qualified Code(s): I10 - Essential (primary) hypertension (5) Hypothyroidism Current visit: No Status: Chronic Qualifiers: Qualified Code(s): E03.9 - Hypothyroidism, unspecified History of Present Illness Requesting Physician: Todd Olvera Reason for consult: 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 History of present illness: Ms. Fry is a 56 year old female was consulted today for non epileptic seizures , psychosis and confusion. Her joined the session and was able to give collateral , as patient was confused and orientedx1 stating i loose time and at times slurred speech. As per she had an episode 5 years ago when she fell in garage as loss consiousness and was there till she woke up after 3 hrs and he took her to hospital they r/o TIA. and then she never had any episode till 2-3 months ago she has been having seizures and has had upto 5 to date. she has stress lately that her daughter not speaking to her for 5-6 months and her 18 yr grand daughter came to her and is living with her , she is happy about this . As per patient she is not hearing any voices or seeing thing but is confused and at times restless, she feels sad about whats going on but no si/hi. she has h/o depression and was treated for short time in 1992 , although her home medication has wellbutrin 300 mg. no drugs/alcohol h/o abusing vicodin 4 years ago and had been off opiates as per . no family history of seizure disorder. at present chart reviewed and her EEG showed normal report . She has h/o aneurysm , also has full seizure work up done in [place]. A/P at present i cannot determine her seizure activity as psychogenic , we need R/O other medical reasons. She has h/o depression and anxiety but stable since 1992. there are recent stress , has very good support . will need to follow up with MRI and CSF study Please dc her home medication Wellbutrin 300 mg as it can cause seizure will not give any psychotropic at present. Thank you for consult CC: Todd Olvera Past Med Surg Social Fam HX - Past Medical History Medical history: arthritis, asthma, cancer, COPD, GERD, hypertension, thyroid disease, syncope, TIA, other - Past Psychiatric History Psychiatric history: Reports: anxiety, depression Family psychiatric history: No Family History of Suicide: Unknown - Past Surgical History Surgical History: breast surgery, cancer surgery, hysterectomy, thyroidectomy - Social History Smoking Status: Former smoker Smokeless Tobacco Status: No Alcohol use: none Drug use: none - Family History Mother Adopted: No Living Status: Hx Family Cancer: Yes Father Adopted: No Living Status: Hx Family Cancer: Yes Hx Family Endocrine Disorder: Yes Medications & Allergies Albuterol Neb [AccuNeb] 1.25 mg IH Q8H PRN 11/25/16 [History] Bupropion HCl [Wellbutrin Xl] 300 mg PO DAILY 11/25/16 [History] Carvedilol [Coreg] 6.25 mg PO BID 11/25/16 [History] Diltiazem CD (24hr) [Cardizem CD] 240 mg PO DAILY 11/25/16 [History] Famotidine [Pepcid] 40 mg PO DAILY 11/25/16 [History] Fluticasone Propionate Nasal [Flonase] 50 mcg NS BID 11/25/16 [History] Furosemide [Lasix] 20 mg PO DAILY 11/25/16 [History] Lansoprazole [Prevacid] 30 mg PO DAILY 11/25/16 [History] Levothyroxine [Synthroid] 175 mcg PO QAM 11/25/16 [History] Linaclotide [Linzess] 145 mcg PO DAILY 11/25/16 [History] Mometasone/Formoterol [Dulera 200 Mcg/5 Mcg Inhaler] 2 puff IH BID 11/25/16 [ History] Nortriptyline [Pamelor] 10 mg PO HS 11/25/16 [History] Prochlorperazine Maleate [Compazine] 10 mg PO Q8HR PRN 11/25/16 [History] Promethazine Syrup [Phenergan Syrup] 12.5 mg PO Q6H PRN 11/25/16 [History] Tiotropium [Spiriva] 18 mcg IH 0700 11/25/16 [History] Topiramate [Topamax] 25 - 50 mg PO HS 11/25/16 [History] Gabapentin [Neurontin] 300 mg PO BID 01/08/17 [History] LevETIRAcetam [Keppra] 750 mg PO BID 01/08/17 [History] Potassium Chloride [K-Tab ER] 20 meq PO DAILY 01/08/17 [History] clonazePAM [Klonopin] 0.5 mg PO BID PRN 01/08/17 [History] 3 Allergy/AdvReac Type Severity Reaction Status Date / Time celecoxib [From Celebrex] Allergy Itching Verified 01/08/17 19:40 ondansetron AdvReac Headache Verified 01/08/17 19:40 [From Zofran (as hydrochloride)] Review of Systems Psychiatric: Reports: anxiety Mental Status Exam Patient orientation: Yes Place Level of alertness: Sedated Patient appearance: Appropriate Behavior: restless Psychomotor activity: Increased Eye contact: Minimal Contact Patient description of mood: patient unable to describe. Affect description: blunted Speech pattern: Slurred Speech volume: Soft/Quiet Thought process: Disorganized Attention span: Unable to Focus, Unable to Sustain Attention Patient reliability: Questionable Historian Judgment: Limited Insight: Partial (secondary to medical condition) Results - Vital Signs Vital signs: Temp Pulse Resp BP Pulse Ox 97.6 F 87 16 132/76 91 01/14/17 07:15 01/14/17 07:15 01/14/17 08:18 01/14/17 07:15 01/14/17 08:18 - Labs Labs: Laboratory Last Values WBC 10.8 K/mcL (4.3-11.1) 01/14/17 05:46 RBC 3.93 M/mcL (3.82-4.97) 01/14/17 05:46 Hgb 12.2 g/dL (11.5-15.4) 01/14/17 05:46 Hct 35.8 % (35.3-44.9) 01/14/17 05:46 MCV 91.1 fL (83.0-100.0) 01/14/17 05:46 MCH 31.0 pg (28.0-33.3) 01/14/17 05:46 MCHC 34.1 g/dL (31.6-35.5) 01/14/17 05:46 RDW 13.1 % (11.5-14.5) 01/14/17 05:46 Plt Count 387 K/mcL (140-400) 01/14/17 05:46 MPV 9.1 fL (9.4-12.4) L 01/14/17 05:46 Immature Gran % 0.7 % (0-4) 01/14/17 05:46 Seg Neutrophils % 70.1 % 01/14/17 05:46 Lymphocytes % 19.2 % 01/14/17 05:46 Monocytes % 8.2 % 01/14/17 05:46 Eosinophils % 1.1 % 01/14/17 05:46 Basophils % 0.7 % 01/14/17 05:46 Neutrophils # 7.6 K/mcL (1.6-8.9) 01/14/17 05:46 Lymphocytes # 2.1 K/mcL (0.6-4.6) 01/14/17 05:46 Monocytes # 0.9 K/mcL (0.0-1.3) 01/14/17 05:46 Eosinophils # 0.1 K/mcL (0.0-0.6) 01/14/17 05:46 Basophils # 0.1 K/mcL (0.0-0.2) 01/14/17 05:46 Immature Plt Fraction 1.9 % (1.1-6.1) 01/13/17 08:51 Sodium 141 mEq/L (136-145) 01/14/17 05:46 Potassium 3.6 mEq/L (3.5-4.5) 01/14/17 05:46 Chloride 111 mEq/L (98-109) H 01/14/17 05:46 Carbon Dioxide 18 mEq/L (19-29) L 01/14/17 05:46 BUN 16 mg/dL (7-20) 01/14/17 05:46 Creatinine 0.97 mg/dL (0.57-1.11) 01/14/17 05:46 Est GFR ( Amer) > 60 (> 60) 01/14/17 05:46 Est GFR (Non-Af Amer) 59 (> 60) L 01/14/17 05:46 BUN/Creatinine Ratio 16 (6-26) 01/14/17 05:46 Glucose 119 mg/dL (70-99) H 01/14/17 05:46 POC Glucose 140 (58-89) H 01/13/17 08:54 Calculated Osmolality 294 (280-300) 01/14/17 05:46 Calcium 9.4 mg/dL (8.6-10.8) 01/14/17 05:46 Phosphorus 3.1 mg/dL (2.3-4.7) 01/13/17 08:51 Magnesium 2.2 mg/dL (1.6-2.6) 01/13/17 08:51 Total Bilirubin 0.3 mg/dL (0.2-1.2) 01/14/17 05:46 AST 38 Units/L (5-34) H 01/14/17 05:46 ALT 69 Units/L (0-55) H 01/14/17 05:46 Alkaline Phosphatase 233 Units/L (38-126) H 01/14/17 05:46 Creatine Kinase 82 Units/L (29-168) 01/13/17 08:51 Serum Total Protein 8.1 g/dL (6.0-8.3) 01/14/17 05:46 Albumin 3.9 g/dL (3.5-5.0) 01/14/17 05:46 Globulin 4.2 g/dL (2.4-3.5) H 01/14/17 05:46 Albumin/Globulin Ratio 0.9 (1.1-2.2) L 01/14/17 05:46 Urine Color Yellow (Yellow) 01/13/17 08:52 Urine Clarity Clear (Clear) 01/13/17 08:52 Urine pH 5.5 pH Units (5.0-8.0) 01/13/17 08:52 Ur Specific [place] 1.021 (1.010-1.025) 01/13/17 08:52 Urine Protein Negative mg/dL (Neg-Trace) 01/13/17 08:52 Urine Glucose (UA) Normal mg/dL (Normal) 01/13/17 08:52 Urine Ketones Negative mg/dL (Negative) 01/13/17 08:52 Urine Blood Negative (Negative) 01/13/17 08:52 Urine Nitrite Negative (Negative) 01/13/17 08:52 Urine Bilirubin Negative (Negative) 01/13/17 08:52 Urine Urobilinogen Normal mg/dL (Normal) 01/13/17 08:52 Ur Leukocyte Esterase Negative (Negative) 01/13/17 08:52 CSF Volume 15.5 mL 01/14/17 11:10 CSF Appearance Clear (Clear) 01/14/17 11:10 CSF Color Colorless (Colorless) 01/14/17 11:10 CSF RBC < 0.002 M/mcL (0.000-0.002) 01/14/17 11:10 CSF Tot Nucleated Cells 4 TNC/mcL (0-5) 01/14/17 11:10 CSF Seg Neutrophils TNP 01/14/17 11:10 CSF Band Neutrophils % TNP 01/14/17 11:10 CSF Lymphocytes % TNP 01/14/17 11:10 CSF Monocytes % TNP 01/14/17 11:10 CSF Eosinophils % TNP 01/14/17 11:10 CSF Basophils % TNP 01/14/17 11:10 CSF Other Cells % TNP 01/14/17 11:10 CSF Glucose 74 mg/dL (40-70) H 01/14/17 11:10 CSF Xanth Comm Not Observed (Not Observe) 01/14/17 11:10 CSF Total Protein 65 mg/dL (15-45) H 01/14/17 11:10 Urine Opiates Screen Negative ng/mL (Yrnkag=511) 01/13/17 08:52 Ur Barbiturates Screen Negative ng/mL (Lbkxbw=025) 01/13/17 08:52 Ur Phencyclidine Scrn Negative ng/mL (Cutoff=25) 01/13/17 08:52 Ur Amphetamines Screen Positive ng/mL (Nemqng=8011) H 01/13/17 08:52 U Benzodiazepines Scrn Negative ng/mL (Ybypjo=469) 01/13/17 08:52 Urine Cocaine Screen Negative ng/mL (Cutoff= 300) 01/13/17 08:52 U Marijuana (THC) Screen Negative ng/mL (Cutoff = 50) 01/13/17 08:52 - Impressions Impressions Brain MRI 01/13/17 17:57 IMPRESSION: 1. Examination was terminated prematurely due to patient's claustrophobia. 2. No acute intracranial abnormality. No acute infarct. 3. Moderate chronic microvascular ischemic changes, which is similar to the prior exam. D/ / Dario Hare MD / Dario Hare MD Interpreting Provider: Dario Hare MD Lumbar Puncture Fluoroscopy 01/14/17 09:54 IMPRESSION: Successful fluoroscopic-guided lumbar puncture. D/ / 01/14/2017 11:52:52 Yamileth Weston MD / jenny Interpreting Provider: Yamileth Weston MD Consult Discharge Plan - Plan Referrals: Julio Hernandez MD [Primary Care Provider] -
--- NOTE | 2017-01-14 14:57 | Neurology Progress Note ---
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 The presentation, symiology and the course of her seizure recovery, and the repetitive normal EEGs, including normal 48 hour ambulatory EEG done few days indicate nonepileptic psychogenic seizure. Patient's rather prolonged, non resolving speech difficulty without hypersomnolence can not be explained by a post-ictal phenomenon. Plus patient also has acute onset of hallucinations but due to speech difficulty accurate assessment of her mental status is difficult. MRI of brain was read as normal. Patient has had repeat MRI of brains in the last last few months. CSF study showed normal cell count and mildly elevated protein and glucose therefore no evidence of infectious or inflammatory pathology. Elevated protein level is a nonspecific finding with doubtful clinical significance. From neurology perspective, no further testing will be recommended at this time. 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 If she does not improve then she eventually needs PT and speech therapy and placement issue since may have difficult to take care of her at home. If she desires [facility] epilepsy monitoring may also be an option but it is noted that the patient has not had any seizures since admission. As planned earlier the patient will follow up with Dr. Desi Campos within 1- 2 weeks after discharge. Subjective Principal diagnosis: seizure activity and prolonged confuison Interval history: Patient known and examined. She has no recurrent seizures. Per , her symptoms have not improved since yesterday. While in the room, she told me that her speech is getting worse. And after that she is unable to speak a whole sentence. Her MRI of brain was completed and again it showed unremarkable study. we also did CSF study which was completed with cell count of 4 and elevated protein and glucose. This result does not support [employer]TERNAL [employer]ER infectious or inflammatory etiology. Mildly elevated protein level is non-specific finding. So far her clinical presentation, description of her seizure activity, and unusual prolonged speech difficulty without hypersomnolence highly suspicious for nonepileptic/psychogenic seizure. It is noted that the patient also has had 48 hour prolonged ambulatory EEG which captured seizure like activity consistent with pseudo seizures. she also completed 48 hour ambulatory EEG few days ago as an outpatient procedure which showed essentially normal study. Objective - Constitutional Vitals: Temp Pulse Resp BP Pulse Ox 97.6 F 87 16 132/76 91 01/14/17 07:15 01/14/17 07:15 01/14/17 08:18 01/14/17 07:15 01/14/17 08:18 - Neurological Exam Sensorimotor examination: Present: other (Grossly intact) Motor Examination: Present: grossly full strength in all extremities, full strength in all major muscle groups Motor examination - right side: 5/5: deltoids, biceps, triceps, wrist flexion, wrist extension, lead care manager, hip flexors, tibialis Anterior, quadriceps, toe extension (EHL), plantarflexion Motor examination - left side: 5/5: deltoids, biceps, triceps, wrist flexion, wrist extension, hip flexors, lead care manager, quadriceps, tibialis Anterior, toe extension (EHL), plantarflexion Sensation intact: Present: light touch (mild decreased sensation on the medial aspect of her right foot and lateral aspect of her right arm) Reflexes: Biceps: 1+, Triceps: 1+, Brachioradialis: 1+, Patella: 1+, Achilles: 1 + Mental Status Examination: Present: awake, alert, follows commands appropriately (follows most commands appropriately, does not appear to understand others), follows simple commands, inattentive, impaired memory, impaired cognition (Kvng is wide awake and alert. She is not drowsy but unable to communicate other than telling me her speech is worse.), not reliable historian Cranial nerve examination: Present: PERRL (symetrically dilated pupils, sluggish to react), EOMI, sensory to face intact, mastication intact, no facial asymmetry is present, no dysarthria, hearing is intact symmetrically, gag reflex intact, flexes SCM and trapezius muscles symmetrically with full power, tongue protrudes midline Results - Laboratory Findings CBC and BMP: 01/14/17 05:46 01/14/17 05:46 Abnormal lab findings: Abnormal lab results MPV 9.1 fL (9.4-12.4) L 01/14/17 05:46 Chloride 111 mEq/L (98-109) H 01/14/17 05:46 Carbon Dioxide 18 mEq/L (19-29) L 01/14/17 05:46 Est GFR (Non-Af Amer) 59 (> 60) L 01/14/17 05:46 Glucose 119 mg/dL (70-99) H 01/14/17 05:46 POC Glucose 140 (58-89) H 01/13/17 08:54 AST 38 Units/L (5-34) H 01/14/17 05:46 ALT 69 Units/L (0-55) H 01/14/17 05:46 Alkaline Phosphatase 233 Units/L (38-126) H 01/14/17 05:46 Globulin 4.2 g/dL (2.4-3.5) H 01/14/17 05:46 Albumin/Globulin Ratio 0.9 (1.1-2.2) L 01/14/17 05:46 CSF Glucose 74 mg/dL (40-70) H 01/14/17 11:10 CSF Total Protein 65 mg/dL (15-45) H 01/14/17 11:10 Ur Amphetamines Screen Positive ng/mL (Pcsmlu=8215) H 01/13/17 08:52 Consult Discharge Plan - Plan Referrals: Julio Hernandez MD [Primary Care Provider] -
[2017-01-14] MEDS: Topiramate 25 MG TABLET PO SCH (20:23)
[2017-01-14] MEDS: clonazePAM 0.5 MG TABLET PO PRN (20:37)
[2017-01-15] MEDS: 0.9 % Sodium Chloride 1,000 ML IVC SCH ×4 (02:29→18:56)
[2017-01-15] MEDS: Budesonide/Formoterol 160/4.5 MDI IH SCH ×4 (03:01→19:58)
[2017-01-15 05:25] LABS: Hematocrit 35.1 % (35.3-44.9); Hemoglobin 11.9 g/dL (11.5-15.4); Mean Corpuscular HGB Conc 33.9 g/dL (31.6-35.5); Mean Corpuscular Hemoglobin 30.7 pg (28.0-33.3); Mean Corpuscular Volume 90.5 fL (83.0-100.0); Mean Platelet Volume 8.8 fL (9.4-12.4); Platelet Count 336 K/mcL (140-400); Red Blood Count 3.88 M/mcL (3.82-4.97); Red Cell Distribution Width 13.1 % (11.5-14.5)
[2017-01-15 05:41] LABS: Alanine Aminotransferase 61 Units/L (0-55); Albumin 3.6 g/dL (3.5-5.0); Alkaline Phosphatase 207 Units/L (38-126); Aspartate Amino Transferase 39 Units/L (5-34); BUN/Creatinine Ratio 11 (6-26); Bilirubin,Total 0.3 mg/dL (0.2-1.2); Blood Urea Nitrogen 10 mg/dL (7-20); Calcium 9.3 mg/dL (8.6-10.8); Carbon Dioxide 21 mEq/L (19-29); Chloride 113 mEq/L (98-109); Globulin 3.7 g/dL (2.4-3.5); Glucose 100 mg/dL (70-99); Osmolality,Calculated 295 (280-300); Potassium 3.4 mEq/L (3.5-4.5); Sodium 143 mEq/L (136-145); Total Protein 7.3 g/dL (6.0-8.3); eGFR For African Americans > 60 (> 60); eGFR For Non-African Americans > 60 (> 60)
[2017-01-15] MEDS: *HR* LORazepam 2 MG/ML VIAL IVP PRN ×2 (05:50→21:58)
[2017-01-15] MEDS: Diltiazem CD (24hr) 240 MG CAPSULE PO SCH (08:05)
[2017-01-15] MEDS: Fluticasone Propionate Nasal 50 MCG/SPRAY BOTTLE NS SCH ×2 (08:06→22:28)
[2017-01-15] MEDS: levETIRAcetam 250 MG TABLET PO SCH ×2 (08:06→21:57)
[2017-01-15] MEDS: Famotidine 20 MG TABLET PO SCH (08:06)
[2017-01-15] MEDS: Gabapentin 300 MG CAPSULE PO SCH ×2 (08:06→21:58)
[2017-01-15] MEDS: (Linaclotide [Linzess] 145 MCG) PO SCH (08:06)
--- NOTE | 2017-01-15 08:10 | Electrocardiograph Report ---
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
[2017-01-15] MEDS: Tiotropium 18 MCG inhalation IH SCH (08:26)
--- NOTE | 2017-01-15 14:17 | Consult Note ---
Date of Encounter: 01/15/17 Time of Encounter: 13:30 Assessment & Recommendation (1) Seizure disorder Current visit: Yes Status: Acute (2) Depression Current visit: No Status: Chronic Qualifiers: Depression Type: major depressive disorder Major depression recurrence: recurrent Active/Remission status: in partial remission Qualified Code(s): F33.41 - Major depressive disorder, recurrent, in partial remission (3) HTN (hypertension) Current visit: No Status: Chronic Qualifiers: Hypertension type: essential hypertension Qualified Code(s): I10 - Essential (primary) hypertension (4) Hypothyroidism Current visit: No Status: Chronic Qualifiers: Qualified Code(s): E03.9 - Hypothyroidism, unspecified History of Present Illness Requesting Physician: Todd Olvera Reason for consult: follow up History of present illness: Ms. Fry is a 56 year old female was seen yesterday and today follow up , talked to her family. she is more alert and less confused, her reports MRI was reviewed had no acute or new changes, she and family are concerned about her medical condition , supportive counselling given . She has stress about her family and her medical condition but not depressed at present. Would recommend out patient counselling and continue Klonopin for anxiety as it will also help her seizure. Will not recommend any anti depressant at present , need to be reevaluated as out patient. Thank you for consult. patient dc from psych. CC: Todd Olvera Past Med Surg Social Fam HX - Past Medical History Medical history: arthritis, asthma, cancer, COPD, GERD, hypertension, thyroid disease, syncope, TIA, other - Past Surgical History Surgical History: breast surgery, cancer surgery, hysterectomy, thyroidectomy - Social History Smoking Status: Former smoker Smokeless Tobacco Status: No Alcohol use: none Drug use: none - Family History Mother Adopted: No Living Status: Hx Family Cancer: Yes Father Adopted: No Living Status: Hx Family Cancer: Yes Hx Family Endocrine Disorder: Yes Medications & Allergies Albuterol Neb [AccuNeb] 1.25 mg IH Q8H PRN 11/25/16 [History] Carvedilol [Coreg] 6.25 mg PO PRN PRN 11/25/16 [History] Diltiazem CD (24hr) [Cardizem CD] 240 mg PO DAILY 11/25/16 [History] Famotidine [Pepcid] 40 mg PO DAILY 11/25/16 [History] Fluticasone Propionate Nasal [Flonase] 50 mcg NS BID 11/25/16 [History] Furosemide [Lasix] 20 mg PO DAILY 11/25/16 [History] Lansoprazole [Prevacid] 30 mg PO DAILY 11/25/16 [History] Levothyroxine [Synthroid] 175 mcg PO QAM 11/25/16 [History] Linaclotide [Linzess] 145 mcg PO DAILY 11/25/16 [History] Mometasone/Formoterol [Dulera 200 Mcg/5 Mcg Inhaler] 2 puff IH BID 11/25/16 [ History] Nortriptyline [Pamelor] 10 mg PO HS 11/25/16 [History] Prochlorperazine Maleate [Compazine] 10 mg PO Q8HR PRN 11/25/16 [History] Promethazine Syrup [Phenergan Syrup] 12.5 mg PO Q6H PRN 11/25/16 [History] Tiotropium [Spiriva] 18 mcg IH 0700 11/25/16 [History] Topiramate [Topamax] 25 - 50 mg PO HS 11/25/16 [History] Gabapentin [Neurontin] 300 mg PO BID 01/08/17 [History] LevETIRAcetam [Keppra] 750 mg PO BID 01/08/17 [History] Potassium Chloride [K-Tab ER] 20 meq PO DAILY 01/08/17 [History] clonazePAM [Klonopin] 0.5 mg PO BID PRN 01/08/17 [History] 3 Allergy/AdvReac Type Severity Reaction Status Date / Time celecoxib [From Celebrex] Allergy Itching Verified 01/08/17 19:40 ondansetron AdvReac Headache Verified 01/08/17 19:40 [From Zofran (as hydrochloride)] Review of Systems Psychiatric: Reports: anxiety Mental Status Exam Patient orientation: Yes Person, Yes Time Level of alertness: Alert Patient appearance: Appropriate Behavior: cooperative Psychomotor activity: Normal Eye contact: Maintains Eye Contact Mood description: Anxious Affect description: congruent with mood Speech pattern: Coherent Speech volume: Normal Thought process: Logical Thought content: Yes Intact Intelligence estimate: Average Judgment: Good Insight: Partial Results - Vital Signs Vital signs: Temp Pulse Resp BP Pulse Ox 97.8 F 85 16 110/57 96 01/15/17 10:57 01/15/17 10:57 01/15/17 10:57 01/15/17 10:57 01/15/17 10:57 - Labs Labs: Laboratory Last Values WBC 8.3 K/mcL (4.3-11.1) 01/15/17 05:07 RBC 3.88 M/mcL (3.82-4.97) 01/15/17 05:07 Hgb 11.9 g/dL (11.5-15.4) 01/15/17 05:07 Hct 35.1 % (35.3-44.9) L 01/15/17 05:07 MCV 90.5 fL (83.0-100.0) 01/15/17 05:07 MCH 30.7 pg (28.0-33.3) 01/15/17 05:07 MCHC 33.9 g/dL (31.6-35.5) 01/15/17 05:07 RDW 13.1 % (11.5-14.5) 01/15/17 05:07 Plt Count 336 K/mcL (140-400) 01/15/17 05:07 MPV 8.8 fL (9.4-12.4) L 01/15/17 05:07 Immature Gran % 0.7 % (0-4) 01/14/17 05:46 Seg Neutrophils % 70.1 % 01/14/17 05:46 Lymphocytes % 19.2 % 01/14/17 05:46 Monocytes % 8.2 % 01/14/17 05:46 Eosinophils % 1.1 % 01/14/17 05:46 Basophils % 0.7 % 01/14/17 05:46 Neutrophils # 7.6 K/mcL (1.6-8.9) 01/14/17 05:46 Lymphocytes # 2.1 K/mcL (0.6-4.6) 01/14/17 05:46 Monocytes # 0.9 K/mcL (0.0-1.3) 01/14/17 05:46 Eosinophils # 0.1 K/mcL (0.0-0.6) 01/14/17 05:46 Basophils # 0.1 K/mcL (0.0-0.2) 01/14/17 05:46 Immature Plt Fraction 1.9 % (1.1-6.1) 01/13/17 08:51 Sodium 143 mEq/L (136-145) 01/15/17 05:07 Potassium 3.4 mEq/L (3.5-4.5) L 01/15/17 05:07 Chloride 113 mEq/L (98-109) H 01/15/17 05:07 Carbon Dioxide 21 mEq/L (19-29) 01/15/17 05:07 BUN 10 mg/dL (7-20) 01/15/17 05:07 Creatinine 0.89 mg/dL (0.57-1.11) 01/15/17 05:07 Est GFR ( Amer) > 60 (> 60) 01/15/17 05:07 Est GFR (Non-Af Amer) > 60 (> 60) 01/15/17 05:07 BUN/Creatinine Ratio 11 (6-26) 01/15/17 05:07 Glucose 100 mg/dL (70-99) H 01/15/17 05:07 POC Glucose 113 (58-89) H 01/14/17 00:07 Calculated Osmolality 295 (280-300) 01/15/17 05:07 Calcium 9.3 mg/dL (8.6-10.8) 01/15/17 05:07 Phosphorus 3.1 mg/dL (2.3-4.7) 01/13/17 08:51 Magnesium 2.2 mg/dL (1.6-2.6) 01/13/17 08:51 Total Bilirubin 0.3 mg/dL (0.2-1.2) 01/15/17 05:07 AST 39 Units/L (5-34) H 01/15/17 05:07 ALT 61 Units/L (0-55) H 01/15/17 05:07 Alkaline Phosphatase 207 Units/L (38-126) H 01/15/17 05:07 Ammonia 23 mcmol/L (18-72) 01/14/17 14:42 Creatine Kinase 82 Units/L (29-168) 01/13/17 08:51 Serum Total Protein 7.3 g/dL (6.0-8.3) 01/15/17 05:07 Albumin 3.6 g/dL (3.5-5.0) 01/15/17 05:07 Globulin 3.7 g/dL (2.4-3.5) H 01/15/17 05:07 Albumin/Globulin Ratio 1.0 (1.1-2.2) L 01/15/17 05:07 TSH 1.871 mcIU/mL (0.350-4.840) 01/15/17 05:07 Urine Color Yellow (Yellow) 01/13/17 08:52 Urine Clarity Clear (Clear) 01/13/17 08:52 Urine pH 5.5 pH Units (5.0-8.0) 01/13/17 08:52 Ur Specific Lillie 1.021 (1.010-1.025) 01/13/17 08:52 Urine Protein Negative mg/dL (Neg-Trace) 01/13/17 08:52 Urine Glucose (UA) Normal mg/dL (Normal) 01/13/17 08:52 Urine Ketones Negative mg/dL (Negative) 01/13/17 08:52 Urine Blood Negative (Negative) 01/13/17 08:52 Urine Nitrite Negative (Negative) 01/13/17 08:52 Urine Bilirubin Negative (Negative) 01/13/17 08:52 Urine Urobilinogen Normal mg/dL (Normal) 01/13/17 08:52 Ur Leukocyte Esterase Negative (Negative) 01/13/17 08:52 CSF Volume 15.5 mL 01/14/17 11:10 CSF Appearance Clear (Clear) 01/14/17 11:10 CSF Color Colorless (Colorless) 01/14/17 11:10 CSF RBC < 0.002 M/mcL (0.000-0.002) 01/14/17 11:10 CSF Tot Nucleated Cells 4 TNC/mcL (0-5) 01/14/17 11:10 CSF Seg Neutrophils TNP 01/14/17 11:10 CSF Band Neutrophils % TNP 01/14/17 11:10 CSF Lymphocytes % TNP 01/14/17 11:10 CSF Monocytes % TNP 01/14/17 11:10 CSF Eosinophils % TNP 01/14/17 11:10 CSF Basophils % TNP 01/14/17 11:10 CSF Other Cells % TNP 01/14/17 11:10 CSF Glucose 74 mg/dL (40-70) H 01/14/17 11:10 CSF Xanth Comm Not Observed (Not Observe) 01/14/17 11:10 CSF Total Protein 65 mg/dL (15-45) H 01/14/17 11:10 Urine Opiates Screen Negative ng/mL (Zfjyme=159) 01/13/17 08:52 Ur Barbiturates Screen Negative ng/mL (Rritcb=669) 01/13/17 08:52 Ur Phencyclidine Scrn Negative ng/mL (Cutoff=25) 01/13/17 08:52 Ur Amphetamines Screen Positive ng/mL (Cjwvlm=6015) H 01/13/17 08:52 U Benzodiazepines Scrn Negative ng/mL (Hnyrxc=673) 01/13/17 08:52 Urine Cocaine Screen Negative ng/mL (Cutoff= 300) 01/13/17 08:52 U Marijuana (THC) Screen Negative ng/mL (Cutoff = 50) 01/13/17 08:52 Consult Discharge Plan - Plan Referrals: Julio Hernandez MD [Primary Care Provider] -
--- NOTE | 2017-01-15 14:27 | Neurology Progress Note ---
Date of Encounter: 01/15/17 Time of Encounter: 14:23 Assessment and Plan (1) Seizure disorder Current Visit: Yes Status: Acute Just as what her predicated that her symptoms usually improves 3-4 days after a seizure. 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 Most of her other characteristics indicate psychogenic events. As her mental status significant improved we would proceed to discharge her home and she is to follow up with Dr. Desi Campos in 1-2 weeks. Continue Keppra 1000mg bid. WIll sign off at this time. Subjective Principal diagnosis: seizure activity and prolonged confuison Interval history: Patient seen and examined. She is doing much better. Her speech is fluent now and she agrees to be discharged home today. She answers question appropriately and does admit some increasing stress although she is not ready to discuss further. She agrees to go home and feels comfortable to follow up with Dr. Desi Campos and to take keppra 1000mg bid. Objective - Constitutional Vitals: Temp Pulse Resp BP Pulse Ox 97.8 F 85 16 110/57 96 01/15/17 10:57 01/15/17 10:57 01/15/17 10:57 01/15/17 10:57 01/15/17 10:57 - Neurological Exam Sensorimotor examination: Present: other (Grossly intact) Motor Examination: Present: grossly full strength in all extremities, full strength in all major muscle groups Motor examination - right side: 5/5: deltoids, biceps, triceps, wrist flexion, wrist extension, power chisel operator, hip flexors, tibialis Anterior, quadriceps, toe extension (EHL), plantarflexion Motor examination - left side: 5/5: deltoids, biceps, triceps, wrist flexion, wrist extension, hip flexors, power chisel operator, quadriceps, tibialis Anterior, toe extension (EHL), plantarflexion Sensation intact: Present: light touch (mild decreased sensation on the medial aspect of her right foot and lateral aspect of her right arm) Mental Status Examination: Present: awake, alert, oriented to person, oriented to place, oriented to time, follows commands appropriately (follows most commands appropriately, does not appear to understand others), answers questions appropriately, no agnosia, no aphasia, no aproxia, lucid, follows simple commands, inattentive, impaired memory, impaired cognition (Kvng is wide awake and alert. She is not drowsy but unable to communicate other than telling me her speech is worse.), not reliable historian Cranial nerve examination: Present: PERRL, EOMI, visual beltran intact, corneal reflexes brisk symmetrically, sensory to face intact, mastication intact, no facial asymmetry is present, no dysarthria, hearing is intact symmetrically, gag reflex intact, flexes SCM and trapezius muscles symmetrically with full power, tongue protrudes midline Results - Laboratory Findings CBC and BMP: 01/15/17 05:07 01/15/17 05:07 Abnormal lab findings: Abnormal lab results Hct 35.1 % (35.3-44.9) L 01/15/17 05:07 MPV 8.8 fL (9.4-12.4) L 01/15/17 05:07 Potassium 3.4 mEq/L (3.5-4.5) L 01/15/17 05:07 Chloride 113 mEq/L (98-109) H 01/15/17 05:07 Glucose 100 mg/dL (70-99) H 01/15/17 05:07 POC Glucose 113 (58-89) H 01/14/17 00:07 AST 39 Units/L (5-34) H 01/15/17 05:07 ALT 61 Units/L (0-55) H 01/15/17 05:07 Alkaline Phosphatase 207 Units/L (38-126) H 01/15/17 05:07 Globulin 3.7 g/dL (2.4-3.5) H 01/15/17 05:07 Albumin/Globulin Ratio 1.0 (1.1-2.2) L 01/15/17 05:07 CSF Glucose 74 mg/dL (40-70) H 01/14/17 11:10 CSF Total Protein 65 mg/dL (15-45) H 01/14/17 11:10 Ur Amphetamines Screen Positive ng/mL (Qozxox=6959) H 01/13/17 08:52 Consult Discharge Plan - Plan Referrals: Julio Hernandez MD [Primary Care Provider] -
--- NOTE | 2017-01-15 15:38 | Discharge Summary ---
Date of Encounter: 01/15/17 Time of Encounter: 15:36 - Discharge Diagnosis (1) Seizure disorder Priority: Primary Status: Acute Comments: possible phsychogenic seizures (2) Altered mental status Priority: Primary Status: Acute Comments: unclear etiology, consider possible medication related Qualifiers: Altered mental status type: delirium Qualified Code(s): R41.0 - Disorientation, unspecified (3) Post-ictal confusion Priority: Primary Status: Acute (4) HTN (hypertension) Priority: Secondary Status: Chronic Qualifiers: Hypertension type: essential hypertension Qualified Code(s): I10 - Essential (primary) hypertension (5) Hypothyroidism Priority: Secondary Status: Chronic Qualifiers: Hypothyroidism type: unspecified Qualified Code(s): E03.9 - Hypothyroidism , unspecified (6) Positive urine drug screen Priority: Secondary Status: Acute Comments: Drug screen positive for amphetamines as a result of the use of Wellbutrin which is a false positive - Discharge Medications Prescriptions: clonazePAM [Klonopin] 0.5 mg PO BID PRN #15 tablet PRN Reason: Anxiety levETIRAcetam [Keppra] 1,000 mg PO BID #60 tablet Home Medications: Albuterol Neb [AccuNeb] 1.25 mg IH Q8H PRN 11/25/16 [History] Carvedilol [Coreg] 6.25 mg PO PRN PRN 11/25/16 [History] Diltiazem CD (24hr) [Cardizem CD] 240 mg PO DAILY 11/25/16 [History] Famotidine [Pepcid] 40 mg PO DAILY 11/25/16 [History] Fluticasone Propionate Nasal [Flonase] 50 mcg NS BID 11/25/16 [History] Furosemide [Lasix] 20 mg PO DAILY 11/25/16 [History] Lansoprazole [Prevacid] 30 mg PO DAILY 11/25/16 [History] Levothyroxine [Synthroid] 175 mcg PO QAM 11/25/16 [History] Linaclotide [Linzess] 145 mcg PO DAILY 11/25/16 [History] Mometasone/Formoterol [Dulera 200 Mcg/5 Mcg Inhaler] 2 puff IH BID 11/25/16 [ History] Prochlorperazine Maleate [Compazine] 10 mg PO Q8HR PRN 11/25/16 [History] Promethazine Syrup [Phenergan Syrup] 12.5 mg PO Q6H PRN 11/25/16 [History] Tiotropium [Spiriva] 18 mcg IH 0700 11/25/16 [History] Topiramate [Topamax] 25 - 50 mg PO HS 11/25/16 [History] Gabapentin [Neurontin] 300 mg PO BID 01/08/17 [History] Potassium Chloride [K-Tab ER] 20 meq PO DAILY 01/08/17 [History] clonazePAM [Klonopin] 0.5 mg PO BID PRN #15 tablet 01/15/17 [Rx] levETIRAcetam [Keppra] 1,000 mg PO BID #60 tablet 01/15/17 [Rx] Allergies/Adverse Reactions: 3 Allergy/AdvReac Type Severity Reaction Status Date / Time celecoxib [From Celebrex] Allergy Itching Verified 01/08/17 19:40 ondansetron AdvReac Headache Verified 01/08/17 19:40 [From Zofran (as hydrochloride)] Procedures/tests Complete & Pending: Procedures Performed prior 72 hours Category Date Time Status MR head/brain wo con [MR] Routine MRI 01/13/17 17:57 Completed Date of admission: 01/13/17 10:16 Primary care physician: Julio Hernandez MD Consults: 01/13/17 15:08 Consult to Interpret Exam [CONS] Routine Consulting Provider: Yessenia Hastings Consult to Interpret Exam: Interpret EEG 01/14/17 09:48 Consult to Psychiatry [CONS] Routine Consulting Provider: [facility] [place] Reason for Consult: Non-epileptic seizures with new onset psychosis. Several days confusion following event Call Completed: Yes 01/15/17 13:18 Consult to Physical Therapy [CONS] Routine Comment: Evaluate, develop and implement POC Reason for Consult: eval 01/15/17 13:19 Consult to Occupational Therapy [CONS] Routine Comment: Evaluate, develop and implement POC Reason for Consult: eval - Patient Status Disposition: Transfer SNF Condition: Fair Overall status at discharge: patient is progressing back to baseline - Discharge Instructions Follow Up With: Julio Hernandez MD [Primary Care Provider] - Additional Instructions: Follow-up with primary care physician within the next 7 days. Stop Wellbutrin and nortriptyline. Follow-up with psychiatry within the next 7 days. Fall precautions. - Diet and Activity Activity: increase activity as tolerated Diet: regular diet Hospital course: Ms. Fry is a 56 year old female with past medical history of thyroid cancer (s/p thyroidectomy), small <2 mm brain aneurysm, COPD not oxygen dep, htn , TIA, and seizure disorder presented to [facility] from home with altered mental status, concerning for seizure. The patient is alert, but unable to contribute to the history. Her and family were able to provide the details of the event. The reported waking the patient up for her appointment with her neurologist when she appeared to be confused, somewhat combative, and not fully oriented. Her was concerned that she had had a seizure during the night that was unwitnessed. He noticed that she had dilated eyes at that time, which are concerning to him as he felt she gets this way either immediately before or after a seizure. He stated that she was talking "funny" and wasn't making a lot of sense, though he could understand her. He gave her some klonipin and Topamax. After half an hour she wasn't showing much improvement and he decided to bring her to the hospital. He called EMS and she was brought to the hospital. Where she continued to appear post-ictal. Her and family stated that she normally has tonic-clonic seizures, having convulsions. Immediately prior to and during her post-ictal period they state that she has dilated pupils. The patient has a recent diagnosis of seizure disorder, having been diagnosed with them on 12/02 for which she has undergone an extensive workup here and at [facility], during which a small <2 mm brain aneurysm was found. She has been under the care of Dr. Mattson since her diagnosis and he has been increasing her anti-epileptic medications. She recently underwent a 48h EEG monitoring, competed on 01/10/17, that did not appear to show any seizure activity. Her dose of Keppra had been increased to 750mg BID 2-3 weeks ago, and since that point she has not had any additional seizures. During her hospitalization she was evaluated by neurology, and EEG did not show any abnormal cerebral activity. Her dose of Keppra was increased to 1000 mg twice a day. Also, she was evaluated by psychiatry and the recommendation of stopping Wellbutrin was given as it can cause seizures. Also her nortriptyline was stopped which can cause anticholinergic symptoms. Unfortunately, we have not been able to identify any organic etiology of her symptoms. An MRI of the brain did not show any abnormalities. The possibility of having psychogenic seizures was brought up. The patient needs to follow up with psychiatry as an outpatient. Ammonia level was normal - Time Spent with Patient Total time spent providing and/or coordinating discharge services: Greater than 30 minutes (40 min) - Constitutional Vitals: Temp Pulse Resp BP Pulse Ox 98.2 F 90 16 129/66 96 01/15/17 15:01 01/15/17 15:01 01/15/17 15:01 01/15/17 15:01 01/15/17 15:01 General appearance: Present: cooperative, A&O X 2 (Disoriented in time at times , confused), mild distress, answers questions appropriately - Head Head exam: Present: atraumatic, normocephalic - Eye Eye exam: Present: PERRL, conjuntiva pink, sclera anicteric Pupils: Present: PERRL - Neck Neck exam general surgery: Present: supple, trachea midline. Absent: lymphadenopathy - Respiratory Respiratory exam: Present: CTAB. Absent: accessory muscle use, rales, rhonchi, wheezes - Cardiovascular Cardiovascular exam: Present: RRR, +S1, +S2. Absent: diastolic murmur, gallop, rubs, systolic murmur - GI/Abdominal GI/Abdominal exam: Present: normal bowel sounds, soft, no peritoneal signs. Absent: distended, tenderness - Extremities Exam Extremities exam: Present: warm, radial pulses palpable and symmetrical. Absent : calf tenderness, cyanotic, pedal edema - Neurological Exam Neurological exam: Present: CN II-XII intact, no focal deficits. Absent: oriented X3, pronater drift, facial droop, speech deficit - Skin Skin exam: Present: dry, intact
--- NOTE | 2017-01-15 15:58 | Physician Discharge Referral ---
ExtendedCare Referral Info Provider in Charge after Transfer: PCP Institutional Level of Care: Skilled - Diagnosis (1) Seizure disorder Status: Acute (2) Altered mental status Status: Acute (3) Post-ictal confusion Status: Acute (4) HTN (hypertension) Status: Chronic (5) Hypothyroidism Status: Chronic (6) Positive urine drug screen Status: Acute - Transfer Medications Prescriptions: clonazePAM [Klonopin] 0.5 mg PO BID PRN #15 tablet PRN Reason: Anxiety levETIRAcetam [Keppra] 1,000 mg PO BID #60 tablet Home Medications: Albuterol Neb [AccuNeb] 1.25 mg IH Q8H PRN 11/25/16 [History] Carvedilol [Coreg] 6.25 mg PO PRN PRN 11/25/16 [History] Diltiazem CD (24hr) [Cardizem CD] 240 mg PO DAILY 11/25/16 [History] Famotidine [Pepcid] 40 mg PO DAILY 11/25/16 [History] Fluticasone Propionate Nasal [Flonase] 50 mcg NS BID 11/25/16 [History] Furosemide [Lasix] 20 mg PO DAILY 11/25/16 [History] Lansoprazole [Prevacid] 30 mg PO DAILY 11/25/16 [History] Levothyroxine [Synthroid] 175 mcg PO QAM 11/25/16 [History] Linaclotide [Linzess] 145 mcg PO DAILY 11/25/16 [History] Mometasone/Formoterol [Dulera 200 Mcg/5 Mcg Inhaler] 2 puff IH BID 11/25/16 [ History] Prochlorperazine Maleate [Compazine] 10 mg PO Q8HR PRN 11/25/16 [History] Promethazine Syrup [Phenergan Syrup] 12.5 mg PO Q6H PRN 11/25/16 [History] Tiotropium [Spiriva] 18 mcg IH 0700 11/25/16 [History] Topiramate [Topamax] 25 - 50 mg PO HS 11/25/16 [History] Gabapentin [Neurontin] 300 mg PO BID 01/08/17 [History] Potassium Chloride [K-Tab ER] 20 meq PO DAILY 01/08/17 [History] clonazePAM [Klonopin] 0.5 mg PO BID PRN #15 tablet 10/06/17 [Rx] levETIRAcetam [Keppra] 1,000 mg PO BID #60 tablet 01/15/17 [Rx] Allergies/Adverse Reactions: 3 Allergy/AdvReac Type Severity Reaction Status Date / Time celecoxib [From Celebrex] Allergy Itching Verified 01/08/17 19:40 ondansetron AdvReac Headache Verified 01/08/17 19:40 [From Zofran (as hydrochloride)] - Respiratory Orders Smoking Cessation: Smoking cessation has been advised. For more information, call the [place] Tobacco Quit Line at 8-279-RXAM-NOW. - Advance Directives Code Status: Full Code - Rehabiliation Orders Rehab Orders: Evaluation for Physical Therapy Other: Follow-up with primary care physician within the next 7 days. Stop Wellbutrin and nortriptyline. Follow-up with psychiatry within the next 7 days. Fall precautions. CERTIFICATION: I certify that the transfer of the above named patient to an Extended Care Facility is necessary for the continuing treatment of the diagnosis listed. The above information is true and accurate reflection of patient's current condition. Confidential - Redisclosure prohibited without a patient's written consent.
--- NOTE | 2017-01-15 15:59 | Physician Discharge Referral ---
Home Health/Hosp Referral Info Transfer to: Home Health Provider in Charge Post Discharge: PCP - Diagnosis (1) Seizure disorder Status: Acute (2) Altered mental status Status: Acute (3) Post-ictal confusion Status: Acute (4) HTN (hypertension) Status: Chronic (5) Hypothyroidism Status: Chronic (6) Positive urine drug screen Status: Acute - Respiratory Orders Smoking Cessation: Smoking cessation has been advised. For more information, call the [place] Tobacco Quit Line at 4-873-KXJJ-NOW. - Diet/Nutrition Diet/Nutrition Orders: Regular - Services Needed Following services are medically necessary services: Nursing, Home Health Aide, Physical Therapy, Occupational Therapy Home Care Orders: Follow-up with primary care physician within the next 7 days. Stop Wellbutrin and nortriptyline. Follow-up with psychiatry within the next 7 days. Fall precautions. - Transfer Medications Prescriptions: clonazePAM [Klonopin] 0.5 mg PO BID PRN #15 tablet PRN Reason: Anxiety levETIRAcetam [Keppra] 1,000 mg PO BID #60 tablet Home Medications: Albuterol Neb [AccuNeb] 1.25 mg IH Q8H PRN 11/25/16 [History] Carvedilol [Coreg] 6.25 mg PO PRN PRN 11/25/16 [History] Diltiazem CD (24hr) [Cardizem CD] 240 mg PO DAILY 11/25/16 [History] Famotidine [Pepcid] 40 mg PO DAILY 11/25/16 [History] Fluticasone Propionate Nasal [Flonase] 50 mcg NS BID 11/25/16 [History] Furosemide [Lasix] 20 mg PO DAILY 11/25/16 [History] Lansoprazole [Prevacid] 30 mg PO DAILY 11/25/16 [History] Levothyroxine [Synthroid] 175 mcg PO QAM 11/25/16 [History] Linaclotide [Linzess] 145 mcg PO DAILY 11/25/16 [History] Mometasone/Formoterol [Dulera 200 Mcg/5 Mcg Inhaler] 2 puff IH BID 11/25/16 [ History] Prochlorperazine Maleate [Compazine] 10 mg PO Q8HR PRN 11/25/16 [History] Promethazine Syrup [Phenergan Syrup] 12.5 mg PO Q6H PRN 08/16/17 [History] Tiotropium [Spiriva] 18 mcg IH 0700 11/25/16 [History] Topiramate [Topamax] 25 - 50 mg PO HS 11/25/16 [History] Gabapentin [Neurontin] 300 mg PO BID 01/08/17 [History] Potassium Chloride [K-Tab ER] 20 meq PO DAILY 01/08/17 [History] clonazePAM [Klonopin] 0.5 mg PO BID PRN #15 tablet 01/15/17 [Rx] levETIRAcetam [Keppra] 1,000 mg PO BID #60 tablet 01/15/17 [Rx] Allergies/Adverse Reactions: 3 Allergy/AdvReac Type Severity Reaction Status Date / Time celecoxib [From Celebrex] Allergy Itching Verified 01/08/17 19:40 ondansetron AdvReac Headache Verified 01/08/17 19:40 [From Zofran (as hydrochloride)] Certification: Further, I certify that my clinical findings support that this patient is homebound (i.e. absences from home require considerable and taxing effort and are for medical reasons or taoist services or infrequently or short duration when for other reasons) because: Homebound Reason: Patient requires assistance of a person or device to safely leave home Attestation: My signature below is to certify that this patient is under my care and that I, or nurse practitioner, or a physician's operating room assistant working with me, has a face-to -face encounter with this patient.
[2017-01-15] MEDS: clonazePAM 0.5 MG TABLET PO PRN (17:10)
[2017-01-16] MEDS: Topiramate 25 MG TABLET PO SCH (00:28)
[2017-01-16] MEDS: 0.9 % Sodium Chloride 1,000 ML IVC SCH (03:26)
[2017-01-16] MEDS: *HR* LORazepam 2 MG/ML VIAL IVP PRN (06:46)
--- NOTE | 2017-01-16 07:44 | Internal Med Progress Note ---
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 Psychiatry not completely in agreement with such diagnosis, recommending to stop Wellbutrin as it can cause seizures DIscharge to [facility] today (2) Altered mental status Current Visit: Yes Status: Acute Assessment and plan: unclear etiology, consider possible medication related Stopped Nortryptyline Ammonia level is normal MRI brain unremarkable CSF showed increased protein, non specific Qualifiers: Altered mental status type: delirium Qualified Code(s): R41.0 - Disorientation, unspecified (3) Post-ictal confusion Current Visit: Yes Status: Acute (4) HTN (hypertension) Current Visit: No Status: Chronic Assessment and plan: stable Qualifiers: Hypertension type: essential hypertension Qualified Code(s): I10 - Essential (primary) hypertension (5) Hypothyroidism Current Visit: No Status: Chronic Assessment and plan: continue levothyroxine Qualifiers: Hypothyroidism type: unspecified Qualified Code(s): E03.9 - Hypothyroidism , unspecified (6) Positive urine drug screen Current Visit: Yes Status: Acute Assessment and plan: Drug screen positive for amphetamines as a result of the use of Wellbutrin which is a false positive - Subjective Interval history: Disorientating time and place, confused, family says she has been hallucinating talking to family members that are currently in different states. NO seizures today, denies CP or SOB, , complains of numbness on lower extremities and tingling. - Constitutional Vitals: Temp Pulse Resp BP Pulse Ox 98.4 F 83 20 110/72 95 01/16/17 03:15 01/16/17 03:15 01/16/17 03:15 01/16/17 03:15 01/16/17 03:15 General appearance: Present: cooperative, A&O X 2 (Disoriented in time at times , confused), mild distress, answers questions appropriately - Head Head exam: Present: atraumatic, normocephalic - Eye Eye exam: Present: PERRL, conjuntiva pink, sclera anicteric Pupils: Present: PERRL - Neck Neck exam general surgery: Present: supple, trachea midline. Absent: lymphadenopathy - Respiratory Respiratory exam: Present: CTAB. Absent: accessory muscle use, rales, rhonchi, wheezes - Cardiovascular Cardiovascular exam: Present: RRR, +S1, +S2. Absent: diastolic murmur, gallop, rubs, systolic murmur - GI/Abdominal GI/Abdominal exam: Present: normal bowel sounds, soft, no peritoneal signs. Absent: distended, tenderness - Extremities Exam Extremities exam: Present: warm, radial pulses palpable and symmetrical. Absent : calf tenderness, cyanotic, pedal edema - Neurological Exam Neurological exam: Present: CN II-XII intact, no focal deficits. Absent: oriented X3, pronater drift, facial droop, speech deficit - Skin Skin exam: Present: dry, intact Internal Medicine: Result - Labs CBC & Chem 7: 01/15/17 05:07 01/15/17 05:07 - Impressions Impressions Lumbar Puncture Fluoroscopy 01/14/17 09:54 IMPRESSION: Successful fluoroscopic-guided lumbar puncture. D/ / 01/14/2017 11:52:52 Yamileth Weston MD / jenny Interpreting Provider: Yamileth Weston MD Consult Discharge Plan - Plan Additional Instructions: Follow-up with primary care physician within the next 7 days. Stop Wellbutrin and nortriptyline. Follow-up with psychiatry within the next 7 days. Fall precautions. Referrals: Julio Hernandez MD [Primary Care Provider] - Prescriptions: clonazePAM [Klonopin] 0.5 mg PO BID PRN #15 tablet PRN Reason: Anxiety levETIRAcetam [Keppra] 1,000 mg PO BID #60 tablet
[2017-01-16 07:49] VITALS: BP 119/76
[2017-01-16] MEDS: Tiotropium 18 MCG inhalation IH SCH (07:49)
[2017-01-16] MEDS: Budesonide/Formoterol 160/4.5 MDI IH SCH (07:59)
[2017-01-16] MEDS: Famotidine 20 MG TABLET PO SCH (08:13)
[2017-01-16] MEDS: Diltiazem CD (24hr) 240 MG CAPSULE PO SCH (08:13)
[2017-01-16] MEDS: levETIRAcetam 250 MG TABLET PO SCH (08:13)
[2017-01-16] MEDS: Gabapentin 300 MG CAPSULE PO SCH (08:13)
[2017-01-16] MEDS: (Linaclotide [Linzess] 145 MCG) PO SCH (08:14)
[2017-01-16] MEDS: Fluticasone Propionate Nasal 50 MCG/SPRAY BOTTLE NS SCH (08:14)
[2017-01-16 14:53] LABS: HSV Source CSF
[2017-01-16 22:57] LABS: West Nile Virus PCR Source CSF
[2017-01-18 08:34] LABS: West Nile Virus RNA Result NOT DETECTED
== END 2017-01-16 10:30 ==
LOC: EMEROO 08:39 → 3BNU 08:39 → SUATTDRO 10:16 → 3BNU 10:25
PROVIDERS: ADMIT Hospitalist; ATTEND Internal Medicine